=== PATIENT | male | born 1960 | race African-American/Black ===

== ENCOUNTER → 2016-09-17 | Outpatient (CLI) | payer OTHER ==
[2016-02-17 09:21] VITALS: BP 128/82
[~2016-09-17] MED LIST: ASPI325T4 PO; ATEN25TA PO; CLON0.25 PO; MULT-208 PO; OMEG1CAP28 PO; VENTOLIN HFA18 GM IH; asthmanex
--- NOTE | 2016-09-17 11:10 | RAD ---
PROCEDURE MR of the left knee HISTORY Medial left knee pain for 2 weeks. No known injury. COMPARISON None TECHNIQUE Standard multiplanar sequences are obtained. FINDINGS Mild signal within the posterior horn of the medial meniscus. There is slight ill definition of the capsular margin of the posterior horn and body. However, no evidence of surface violation or definitive meniscocapsular separation. No evidence of a lateral meniscal tear. Anterior and posterior cruciate ligaments are intact. Medial collateral ligament is intact. Iliotibial band unremarkable. Fibular collateral ligament, biceps femoris tendon and popliteus tendon are intact. Extensor mechanism is intact. Trace joint fluid identified. No evidence of an osteochondral loose body. Severe chondromalacia of the patellofemoral joint, mostly at its lateral aspect. Mild to moderate medial and lateral joint compartment chondromalacia. Small bone lesion within the proximal tibia, measures 11 millimeters diameter, and a marginates the growth plate scar. Appearance is most compatible with enchondroma or other benign process. No aggressive bone destruction is seen. Trace Rayo cyst. Small soft tissue nodule posterior to the distal femur, compatible with a small nonspecific lymph node measuring 12 millimeters. IMPRESSION 1. 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 2. Small nonspecific popliteal lymph node measures 12 millimeters diameter. 3. Mild signal within the medial meniscus but no definitive medial meniscal tear. Electronically signed by: Eric Rincon MD (Sep 17, 2016 11:09:33)
== END | disposition home or self-care (01) ==
LOC: MRI 08:06
PROVIDERS: ATTEND Orthopaedic Surgery Sports Medicine
DX: M25.562 Pain in left knee (principal); M17.12 Unilateral primary osteoarthritis, left knee
CPT/HCPCS: 73721

== ENCOUNTER 2016-10-04 12:33 | Emergency (ER) | payer OTHER ==
[~2016-10-04] VITALS: Ht 193 cm; Wt 112.9 kg
[2016-10-04 13:13] LABS: BASO # 0.1 x10^3/uL (0.0-0.2); BASO % 1 % (0-3); EOS % 2 % (0-3); HEMATOCRIT 41.4 % (39.0-53.0); LYMPH # 2.2 x10^3/uL (1.0-4.8); LYMPH % 28 % (24-48); MEAN CORPUSCULAR HEMOGLOBIN 33 pg (25-35); MEAN CORPUSCULAR HGB CONC 34 g/dL (31-37); MEAN CORPUSCULAR VOLUME 96 fL (79-100); MONO % 6 % (0-9); NEUT % 63 % (31-73); PLATELET COUNT 315 x10^3/uL (140-400); RED CELL DISTRIBUTION WIDTH 13.5 % (11.5-14.5); WHITE BLOOD COUNT 7.8 x10^3/uL (4.0-11.0)
[2016-10-04 13:26] LABS: CALCIUM 9.2 mg/dL (8.5-10.1); CREATININE 1.3 mg/dL (0.7-1.3); GFR 68.6; POTASSIUM 4.1 mmol/L (3.5-5.1)
--- NOTE | 2016-10-04 13:34 | PHYS DOC ---
Past Medical History Past Medical History: A-Fib, Asthma Past Surgical History: Other Additional Past Surgical Histo: URETHRAL RESECTION, ABLATION Alcohol Use: Occasionally Drug Use: None Adult General Chief Complaint Chief Complaint: Palpitations HPI HPI Patient is a 56 year old male who presents with intermittent palpitations this afternoon that feel exactly like prior episodes of atrial fibrillation. He states he took flecainide prior to coming here. He otherwise denies dyspnea, cough, chest pain, lightheadedness, diaphoresis, hemoptysis, leg pain or swelling. He states he is compliant with his other medications. He takes a daily aspirin. Review of Systems Review of Systems Constitutional: Denies fever or chills [] Eyes: Denies change in visual acuity, redness, or eye pain [] HENT: Denies nasal congestion or sore throat [] Respiratory: Denies cough or shortness of breath [] Cardiovascular: No additional information not addressed in HPI [] GI: Denies abdominal pain, nausea, vomiting, bloody stools or diarrhea [] : Denies dysuria or hematuria [] Musculoskeletal: Denies back pain or joint pain [] Integument: Denies rash or skin lesions [] Neurologic: Denies headache, focal weakness or sensory changes [] Endocrine: Denies polyuria or polydipsia [] Allergies Allergies Allergies Coded Allergies Type Severity Reaction Last Updated Verified Sulfa (Sulfonamide Antibiotics) Allergy Intermediate Hives 02/01/15 Yes Physical Exam Physical Exam Constitutional: Well developed, well nourished, no acute distress, non-toxic appearance. [] HENT: Normocephalic, atraumatic, bilateral external ears normal, oropharynx moist, nose normal. [] Eyes: PERRLA, EOMI. [] Neck: Normal range of motion, supple. [] Cardiovascular: Irregular [] Lungs & Thorax: Bilateral breath sounds clear to auscultation [] Abdomen: Bowel sounds normal, soft, no tenderness. [] Skin: Warm, dry, no erythema, no rash. [] Back: Normal range of motion. [] Extremities: No tenderness, ROM intact, no edema. [] Neurologic: Alert and oriented X 3, normal motor function, normal sensory function, no focal deficits noted. [] Psychologic: Affect normal, judgement normal, mood normal. [] Current Patient Data Vital Signs Vital Signs Date Time Temp Pulse Resp B/P Pulse Ox O2 Delivery O2 Flow Rate FiO2 10/04/16 13:53 98 14 123/86 100 Room Air 10/04/16 12:35 98.1 98.1 Lab Values Laboratory Tests Test 10/04/16 12:49 White Blood Count 7.8x10^3/uL (4.0-11.0) Red Blood Count 4.30x10^6/uL (4.30-5.70) Hemoglobin 14.0g/dL (13.0-17.5) Hematocrit 41.4% (39.0-53.0) Mean Corpuscular Volume 96fL (79-100) Mean Corpuscular Hemoglobin 33pg (25-35) Mean Corpuscular Hemoglobin Concent 34g/dL (31-37) Red Cell Distribution Width 13.5% (11.5-14.5) Platelet Count 315x10^3/uL (140-400) Neutrophils (%) (Auto) 63% (31-73) Lymphocytes (%) (Auto) 28% (24-48) Monocytes (%) (Auto) 6% (0-9) Eosinophils (%) (Auto) 2% (0-3) Basophils (%) (Auto) 1% (0-3) Neutrophils # (Auto) 4.9x10^3uL (1.8-7.7) Lymphocytes # (Auto) 2.2x10^3/uL (1.0-4.8) Monocytes # (Auto) 0.5x10^3/uL (0.0-1.1) Eosinophils # (Auto) 0.2x10^3/uL (0.0-0.7) Basophils # (Auto) 0.1x10^3/uL (0.0-0.2) Sodium Level 139mmol/L (136-145) Potassium Level 4.1mmol/L (3.5-5.1) Chloride Level 102mmol/L (98-107) Carbon Dioxide Level 31mmol/L (21-32) Anion Gap 6 (6-14) Blood Urea Nitrogen 15mg/dL (8-26) Creatinine 1.3mg/dL (0.7-1.3) Estimated GFR (Cockcroft-Gault) 68.6 Glucose Level 94mg/dL (70-99) Calcium Level 9.2mg/dL (8.5-10.1) Laboratory Tests 10/04/16 12:49 Laboratory Tests 10/04/16 12:49 EKG EKG EKG as interpreted by me as atrial fibrillation, rate 90, no ST-T changes Course & Med Decision Making Course & Med Decision Making Pertinent Labs and Imaging studies reviewed. (See chart for details) Workup is unremarkable here including maintaining normal rate between the 70s and 100. He has known atrial fibrillation. Discussed case with Luci Gunter APRN cardiology, who recommends follow-up closely in clinic as he currently has maintained normal rate in the emergency department. Return precautions given. He understands and agrees with plan. Dragon Disclaimer Dragon Disclaimer This electronic medical record was generated, in whole or in part, using a voice recognition dictation system. Departure Departure Impression: Primary Impression: Paroxysmal a-fib Disposition: 01 HOME, SELF-CARE Condition: STABLE Referrals: MARIAM RIDLEY MD Patient Instructions: Atrial Fibrillation, [id number] Additional Instructions: Follow-up with cardiology clinic. Return for any concerns. Diana BOSWELL MD Oct 04, 2016 13:34
[2016-10-04 13:53] VITALS: BP 123/86
--- NOTE | 2016-10-04 15:49 | EKG ---
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
== END 2016-10-04 13:54 | disposition home or self-care (01) ==
LOC: ER 12:33
DX: I48.0 Paroxysmal atrial fibrillation (principal); I48.91 Unspecified atrial fibrillation; J45.909 Unspecified asthma, uncomplicated; Z88.2 Allergy status to sulfonamides
CPT/HCPCS: 36415; 80048; 85027; 93005; 99285-25

== ENCOUNTER → 2017-07-07 | Outpatient (CLI) | payer OTHER ==
[~2017-07-07] MED LIST changes: -ASPI325T4 PO; +ASPI325T8 PO
[2017-07-07 09:04] LABS: BASO % 1 % (0-3); EOS % 2 % (0-3); HEMATOCRIT 41.6 % (39.0-53.0); HEMOGLOBIN 13.9 g/dL (13.0-17.5); LYMPH # 1.5 x10^3/uL (1.0-4.8); LYMPH % 31 % (24-48); MEAN CORPUSCULAR HEMOGLOBIN 33 pg (25-35); MEAN CORPUSCULAR HGB CONC 33 g/dL (31-37); MEAN CORPUSCULAR VOLUME 98 fL (79-100); MONO % 8 % (0-9); NEUT % 58 % (31-73); PLATELET COUNT 199 x10^3/uL (140-400); RED BLOOD COUNT 4.25 x10^6/uL (4.30-5.70); RED CELL DISTRIBUTION WIDTH 13.1 % (11.5-14.5); WHITE BLOOD COUNT 4.7 x10^3/uL (4.0-11.0)
[2017-07-07 09:06] LABS: BILIRUBIN,URINE NEGATIVE (NEG); GLUCOSE,URINE NEGATIVE (NEG); NITRITE,URINE NEGATIVE (NEG); PROTEIN,URINE NEGATIVE (NEG-TRACE); UROBILINOGEN,URINE 0.2 mg/dL (0.2 mg/dL)
[2017-07-07 09:12] LABS: SQUAMOUS EPITHELIAL CELL,UR OCC /LPF
[2017-07-07 09:13] LABS: BACTERIA,URINE MOD /HPF (0-FEW); RBC,URINE OCC /HPF (0-2); WBC,URINE 20-40 /HPF (0-4)
[2017-07-07 09:32] LABS: ALBUMIN 4.2 g/dL (3.4-5.0); ALBUMIN/GLOBULIN RATIO 1.1 (1.0-1.7); CALCIUM 9.1 mg/dL (8.5-10.1); CREATININE 1.3 mg/dL (0.7-1.3); GFR 68.4; POTASSIUM 4.3 mmol/L (3.5-5.1); TOTAL PROTEIN 8.1 g/dL (6.4-8.2)
[2017-07-07 09:33] LABS: CHOLESTEROL/HDL RATIO 3.8
[2017-07-07 09:36] LABS: FREE T4 1.1 ng/dL (0.76-1.46)
[2017-07-10 10:27] LABS: % FREE TESTOSTERONE 2.55 % (1.50-4.20); TESTOSTERONE FREE 17.49 ng/dL (5.00-21.00); TESTOSTERONE TOTAL 686 ng/dL (264-916)
== END | disposition home or self-care (01) ==
LOC: LAB 08:38
PROVIDERS: ATTEND Family Medicine
DX: Z12.5 Encounter for screening for malignant neoplasm of prostate (principal); Z00.01 Encounter for general adult medical examination with abnormal findings; Z79.899 Other long term (current) drug therapy
CPT/HCPCS: 80053; 80061; 81001; 83036; 84439; 84443; 85025; G0103

== ENCOUNTER → 2017-07-23 | Outpatient (CLI) | payer SELFPAY ==
--- NOTE | 2017-07-23 10:40 | KCIC ---
Examination: CT calcium score HISTORY: History of elevated cholesterol, screening COMPARISON: None available TECHNIQUE: Axial CT images of the heart were performed using cardiac CT calcium scoring protocol with ECG gating . Exposure: One or more of the following individualized dose reduction techniques were utilized for this examination: 1. Automated exposure control 2. Adjustment of the mA and/or kV according to patient size 3. Use of iterative reconstruction technique. FINDINGS: The ascending aorta measures 4 cm in transverse dimension. No evidence of pericardial effusion.The total calcium score is 0. The lungs are clear. IMPRESSION: 1. Total calcium score is 0. No identifiable plaque. Risk of coronary artery disease is very low. Medical follow-up recommended. Electronically signed by: Catarino White MD (07/23/2017 10:37 AM) [id number]
== END | disposition home or self-care (01) ==
LOC: KCIC CT 08:21
PROVIDERS: ATTEND Family Medicine
DX: E78.00 Pure hypercholesterolemia, unspecified (principal); I10 Essential (primary) hypertension; I25.10 Atherosclerotic heart disease of native coronary artery without angina pectoris
CPT/HCPCS: 75571

== ENCOUNTER → 2017-07-30 | Outpatient (CLI) | payer OTHER ==
--- NOTE | 2017-07-30 15:52 | CARD ---
APPROVED REPORT EXAM: Two-dimensional and M-mode echocardiogram with Doppler and color Doppler. Other Information Quality : Average Rhythm : NSR INDICATION Hypertension/HCVD 2D DIMENSIONS RVDd3.5 (2.9-3.5cm)Left Atrium(2D)4.4 (1.6-4.0cm) IVSd1.2 (0.7-1.1cm)Aortic Root(2D)4.0 (2.0-3.7cm) LVDd5.4 (3.9-5.9cm)LVOT Diameter2.4 (1.8-2.4cm) PWd1.2 (0.7-1.1cm)LVDs3.4 (2.5-4.0cm) FS (%) 35.7 %SV89.8 ml LVEF(%)64.7 (>50%) Aortic Valve AoV Peak [place].116.4cm/sAoV VTI21.7cm AO Peak GR.5.4mmHgLVOT Peak [place].115.1cm/s LVOT VTI 20.86cmAO Mean GR.3mmHg STAS (VMAX)4.17rt8HGQ (VTI)4.26cm2 Mitral Valve MV E Clntzooq06.4cm/sMV DECEL DIWE200gv MV A Wohmtxuw36.9cm/sMV PQD20hg E/A Ratio1.5MV A Ehxlyyeo023fe MVA (PHT)3.49cm2 TDI E/Lateral E'5.4E/Medial E'9.0 Pulmonary Valve PV Peak Jlklfnpl69.0cm/sPV Peak Grad.3mmHg RVOT VTI17.2cm Tricuspid Valve TR P. Slwdospu250lv/sRAP QNFCDFMT3aeGz TR Peak Gr.20iyLtSSFB20ywHk Pulmonary Vein S1 Iixclbmk98.5cm/sD2 Vsoaxytn21.8cm/s LEFT VENTRICLE The left ventricle is normal size. There is borderline concentric left ventricular hypertrophy. Left ventricle systolic function is normal. The Ejection Fraction is 60-65%. There is normal LV segmental wall motion. The left ventricular diastolic function and filling is normal for age. There is no ventr icular septal defect visualized. RIGHT VENTRICLE The right ventricle is normal size. The right ventricular systolic function is normal. ATRIA The left atrium is mildly dilated. The right atrium size is normal. The interatrial septum is intact with no evidence for an atrial septal defect or patent foramen ovale as noted on 2-D or Doppler imagi ng. AORTIC VALVE The aortic valve is normal in structure and function. The aortic valve is trileaflet. Doppler and Col or Flow revealed no significant aortic regurgitation. There is no significant aortic valvular stenosi s. MITRAL VALVE The mitral valve is normal in structure and function. There is no mitral valve stenosis. Doppler and Color Flow revealed no mitral valve regurgitation noted. TRICUSPID VALVE The tricuspid valve is not well visualized. Doppler and Color Flow revealed trace tricuspid regurgita tion. The PA pressure was estimated at 24 mmHg. There is no tricuspid valve stenosis. PULMONIC VALVE The pulmonic valve is not well visualized. Doppler and Color Flow revealed trace pulmonic valvular re gurgitation. There is no pulmonic valvular stenosis. GREAT VESSELS The aortic root is enlarged measuring 4.0 cm. The ascending aorta is dilated measuring 3.9 cm. Normal pulmonary venous flow (Doppler). The IVC is normal in size and collapses >50% with inspiration. PERICARDIAL EFFUSION There is no evidence of significant pericardial effusion. Critical Notification Critical Value: No <Conclusion> Left ventricle systolic function is normal. The Ejection Fraction is 60-65%. There is normal LV segmental wall motion. Doppler and Color Flow revealed trace tricuspid regurgitation. The PA pressure was estimated at 24 mmHg. There is no evidence of significant pericardial effusion.
== END | disposition home or self-care (01) ==
LOC: ECHO 15:07
PROVIDERS: ATTEND Internal Medicine Cardiovascular Disease
DX: I12.9 Hypertensive chronic kidney disease with stage 1 through stage 4 chronic kidney disease, or unspecified chronic kidney disease (principal); N18.9 Chronic kidney disease, unspecified
CPT/HCPCS: 93306

== ENCOUNTER → 2018-02-02 | Outpatient (CLI) | payer OTHER | END | disposition home or self-care (01) | LOC: ECHO 08:15 | DX: I34.0 Nonrheumatic mitral (valve) insufficiency (principal); I71.2 Thoracic aortic aneurysm, without rupture; I13.10 Hypertensive heart and chronic kidney disease without heart failure, with stage 1 through stage 4 chronic kidney disease, or unspecified chronic kidney disease; N18.9 Chronic kidney disease, unspecified; E78.00 Pure hypercholesterolemia, unspecified | CPT/HCPCS: 93306 ==

== ENCOUNTER → 2018-02-24 | Outpatient (CLI) | payer OTHER ==
[2018-02-24] MEDS: ZOLPIDEM 5 MG TABLET. PO (21:30)
== END | disposition home or self-care (01) ==
LOC: SLPLAB 19:06
DX: G47.33 Obstructive sleep apnea (adult) (pediatric) (principal)
CPT/HCPCS: 95810

== ENCOUNTER → 2019-01-14 | Outpatient (CLI) | payer OTHER ==
[2019-01-14 09:57] LABS: BILIRUBIN,URINE NEGATIVE (NEG); CLARITY,URINE CLOUDY; COLOR,URINE YELLOW; NITRITE,URINE NEGATIVE (NEG); PROTEIN,URINE NEGATIVE (NEG-TRACE); UROBILINOGEN,URINE 0.2 mg/dL (0.2 mg/dL)
[2019-01-14 10:08] LABS: BASO % 1 % (0-3); EOS # 0.1 x10^3/uL (0.0-0.7); EOS % 2 % (0-3); HEMATOCRIT 39.5 % (39.0-53.0); HEMOGLOBIN 13.5 g/dL (13.0-17.5); LYMPH # 1.9 x10^3/uL (1.0-4.8); LYMPH % 32 % (24-48); MEAN CORPUSCULAR HEMOGLOBIN 34 pg (25-35); MEAN CORPUSCULAR HGB CONC 34 g/dL (31-37); MEAN CORPUSCULAR VOLUME 100 fL (79-100); MONO # 0.4 x10^3/uL (0.0-1.1); MONO % 8 % (0-9); NEUT # 3.3 x10^3uL (1.8-7.7); NEUT % 57 % (31-73); PLATELET COUNT 191 x10^3/uL (140-400); RED BLOOD COUNT 3.96 x10^6/uL (4.30-5.70); RED CELL DISTRIBUTION WIDTH 13.2 % (11.5-14.5); WHITE BLOOD COUNT 5.8 x10^3/uL (4.0-11.0)
[2019-01-14 10:13] LABS: ALBUMIN 3.8 g/dL (3.4-5.0); ALBUMIN/GLOBULIN RATIO 0.9 (1.0-1.7); CHOLESTEROL/HDL RATIO 3.3; CREATININE 1.3 mg/dL (0.7-1.3); GFR 68.1; POTASSIUM 4.2 mmol/L (3.5-5.1); TOTAL BILIRUBIN 1.1 mg/dL (0.2-1.0)
[2019-01-14 10:22] LABS: FREE T4 0.9 ng/dL (0.76-1.46); THYROID STIM HORMONE (TSH) 2.631 uIU/mL (0.358-3.74)
[2019-01-14 10:55] LABS: BACTERIA,URINE 0 /HPF (0-FEW); RBC,URINE 0 /HPF (0-2); SQUAMOUS EPITHELIAL CELL,UR FEW /LPF; WBC,URINE TNTC /HPF (0-4)
[2019-01-14 23:08] LABS: HEMOGLOBIN A1C 4.8 % (4.8-5.6)
== END | disposition home or self-care (01) ==
LOC: LAB 09:09
PROVIDERS: ATTEND Family Medicine
DX: Z00.00 Encounter for general adult medical examination without abnormal findings (principal); Z12.5 Encounter for screening for malignant neoplasm of prostate; Z79.899 Other long term (current) drug therapy
CPT/HCPCS: 36415; 80053; 80061; 81001; 83036; 84439; 84443; 85025; 87086; G0103

== ENCOUNTER → 2019-02-04 | Outpatient (CLI) | payer OTHER ==
[2019-02-04 13:53] LABS: BILIRUBIN,URINE NEGATIVE (NEG); CLARITY,URINE CLEAR; COLOR,URINE YELLOW; NITRITE,URINE NEGATIVE (NEG); PH,URINE 5.5; PROTEIN,URINE NEGATIVE (NEG-TRACE); UROBILINOGEN,URINE 0.2 mg/dL (0.2 mg/dL)
[2019-02-04 14:01] LABS: BACTERIA,URINE 0 /HPF (0-FEW); RBC,URINE 0 /HPF (0-2); SQUAMOUS EPITHELIAL CELL,UR FEW /LPF; WBC,URINE OCC /HPF (0-4)
== END | disposition home or self-care (01) ==
LOC: LAB 12:52
PROVIDERS: ATTEND Family Medicine
DX: Z12.5 Encounter for screening for malignant neoplasm of prostate (principal); R30.0 Dysuria; R97.20 Elevated prostate specific antigen [PSA]
CPT/HCPCS: 36415; 81001; 87086; G0103

== ENCOUNTER → 2019-02-10 | Outpatient (CLI) | payer OTHER ==
[2019-02-11 14:14] LABS: FREE PSA/PSA RATIO 9.4 % (.); PSA FREE 0.15 ng/mL; PSA TOTAL 1.6 ng/mL (0.0-4.0)
== END | disposition home or self-care (01) ==
LOC: LAB 07:08
PROVIDERS: ATTEND Family Medicine
DX: R97.20 Elevated prostate specific antigen [PSA] (principal)
CPT/HCPCS: 36415; 84153; 84154

== ENCOUNTER → 2019-03-08 | Outpatient (CLI) | payer OTHER ==
--- NOTE | 2019-03-08 09:41 | CARD ---
MR#: [id number] Date of Study: 03/08/2019 Ordering Physician: MARIAM RIDLEY, Referring Physician: MARIAM RIDLEY, Tech: Kajal Guzman MARCO ANTONIO APPROVED REPORT EXAM: Two-dimensional and M-mode echocardiogram with Doppler and color Doppler. Other Information Quality : GoodHR: 65bpm Rhythm : NSR INDICATION Hypertension/HCVD 2D DIMENSIONS RVDd3.2 (2.9-3.5cm)Left Atrium(2D)4.8 (1.6-4.0cm) IVSd1.4 (0.7-1.1cm)Aortic Root(2D)4.1 (2.0-3.7cm) LVDd5.2 (3.9-5.9cm)LVOT Diameter2.7 (1.8-2.4cm) PWd1.1 (0.7-1.1cm)LVDs3.6 (2.5-4.0cm) FS (%) 30.2 %SV72.9 ml LVEF(%)57.2 (>50%) M-Mode DIMENSIONS Left Atrium(MM)4.45 (2.5-4.0cm)Aortic Root4.10 (2.2-3.7cm) Aortic Valve AoV Peak [place].127.9cm/sAoV VTI24.2cm AO Peak GR.6.5mmHgLVOT Peak [place].104.9cm/s AO Mean GR.3mmHgAVA (VMAX)4.61cm2 STAS (VTI)4.20cm2 Mitral Valve MV E Bwsrpujq58.5cm/sMV DECEL IFHQ163io MV A Pwhgmyvz89.5cm/sE/A Ratio2.0 Pulmonary Valve PV Peak Xsrutfvb50.0cm/s Tricuspid Valve TR P. Xdzigrkb367el/sRAP NMFOEDZX6wxZj TR Peak Gr.18xuAtQZFT30evSw Pulmonary Vein S1 Sujlhnyl47.3cm/sD2 Iyyhqwbg06.8cm/s LEFT VENTRICLE The left ventricle is normal size. There is mild concentric left ventricular hypertrophy. The left ve ntricular systolic function is normal and the ejection fraction is within normal range. The Ejection Fraction is 55-60%. There is normal LV segmental wall motion. The left ventricular diastolic function and filling is normal for age. RIGHT VENTRICLE The right ventricle is normal size. There is normal right ventricular wall thickness. The right ventr icular systolic function is normal. ATRIA The left atrium size is normal. The right atrium size is normal. The interatrial septum is intact wit h no evidence for an atrial septal defect or patent foramen ovale as noted on 2-D or Doppler imaging. AORTIC VALVE The aortic valve is normal in structure and function. The aortic valve is trileaflet. Doppler and Col or Flow revealed trace aortic regurgitation. There is no significant aortic valvular stenosis. There is no aortic valvular vegetation. MITRAL VALVE The mitral valve is normal in structure and function. There is no evidence of mitral valve prolapse. There is no mitral valve stenosis. Doppler and Color-flow revealed trace mitral regurgitation. TRICUSPID VALVE The tricuspid valve is normal in structure and function. Doppler and Color Flow revealed trace tricus pid regurgitation. The PA pressure was estimated at 33 mmHg. There is no tricuspid valve prolapse or vegetation. There is no tricuspid valve stenosis. PULMONIC VALVE The pulmonary valve is normal in structure and function. Doppler and Color Flow revealed trace pulmon ic valvular regurgitation. There is no pulmonic valvular stenosis. GREAT VESSELS The aortic root is mildly enlarged at 4.1cm. The ascending aorta is Mildly dilated at 3.9cm. The IVC is normal in size and collapses >50% with inspiration. PERICARDIAL EFFUSION There is no evidence of significant pericardial effusion. Critical Notification Critical Value: No <Conclusion> The left ventricular systolic function is normal and the ejection fraction is within normal range. Th e Ejection Fraction is 55-60%. There is normal LV segmental wall motion. Doppler and Color Flow revealed trace tricuspid regurgitation. The PA pressure was estimated at 33 mm Hg. Doppler and Color Flow revealed trace pulmonic valvular regurgitation. The ascending aorta is mildly dilated at 3.9cm. (No significant changes compared to prior) Signed by : Mariam Ridley, Electronically Approved : 03/08/2019 09:40:52
== END | disposition home or self-care (01) ==
LOC: ECHO 07:20
PROVIDERS: ATTEND Internal Medicine Cardiovascular Disease
DX: I11.9 Hypertensive heart disease without heart failure (principal)
CPT/HCPCS: 93306

== ENCOUNTER 2019-06-26 16:47 | Emergency (ER) | payer OTHER ==
[~2019-06-26] VITALS: Ht 193 cm; Wt 117.0 kg
[2019-06-26] MEDS ORDERED: ASPIRIN CHEWABLE 81 MG TABLET. PO ONE (17:00)
--- NOTE | 2019-06-26 17:00 | PHYS DOC ---
Past Medical History Past Medical History: A-Fib, Asthma Past Surgical History: Other Additional Past Surgical Histo: URETHRAL RESECTION, ABLATION Alcohol Use: Occasionally Drug Use: None The HEART Score for CP Pts HEART Score for Chest Pain: HEART Score for Chest Pain Response (Comments) Value History Slighlty/Non-Suspicious 0 ECG Nonspecific Repolarizatio 1 Age >45 - < 65 1 Risk Factors 1 or 2 Risk Factors 1 Troponin < Normal Limit 0 Total 3 Risk Factors: Risk Factors: DM, Current or recent (<one month) smoker, HTN, HLP, family history of CAD, obesity. Risk Scores: Score 0 - 3: 2.5% MACE over next 6 weeks - Discharge Home Score 4 - 6: 20.3% MACE over next 6 weeks - Admit for Clinical Observation Score 7 - 10: 72.7% MACE over next 6 weeks - Early Invasive Strategies Adult General Chief Complaint Chief Complaint: CHEST PAIN [facility] HPI 59-year-old male presents to the emergency department with complaints of left- sided chest pain, states he woke this morning about 9 AM. Patient's more achy on the left side nonreproducible. He states he took some Advil without relief. Patient has a history of atrial fibrillation with ablation states nothing makes his pain worse, nothing makes his pain better. He is currently on atenolol 25 mg twice a day, flecainide 50 mg twice a day. Patient denies any nausea, vomiting, diaphoresis. Review of Systems Review of Systems Constitutional: Denies fever or chills [] Respiratory: Denies cough or shortness of breath [] Cardiovascular: No additional information not addressed in HPI [] GI: Denies abdominal pain, nausea, vomiting, bloody stools or diarrhea [] Musculoskeletal: Denies back pain or joint pain [] Neurologic: Denies headache, focal weakness or sensory changes [] All other systems were reviewed and found to be within normal limits, except as documented in this note. Current Medications Current Medications Current Medications Medications (Trade) Dose Ordered Sig/Svetlana Start Time Stop Time Status Last Admin Dose Admin Aspirin (Children'S Aspirin) 324 mg 1X ONCE 06/26/19 17:00 06/26/19 17:07 DC 06/26/19 17:18 324 MG Ketorolac Tromethamine (Toradol 30mg Vial) 30 mg 1X ONCE 06/26/19 17:45 06/26/19 17:50 DC 06/26/19 17:53 30 MG Nitroglycerin (Nitrostat) 0.4 mg PRN Q5MIN PRN 06/26/19 17:00 06/27/19 16:59 06/26/19 17:26 0.4 MG Allergies Allergies Allergies Coded Allergies Type Severity Reaction Last Updated Verified Sulfa (Sulfonamide Antibiotics) Allergy Intermediate Hives 02/01/15 Yes Physical Exam Physical Exam Constitutional: Well developed, well nourished, no acute distress, non-toxic appearance. [] HENT: Normocephalic, atraumatic, bilateral external ears normal, oropharynx moist, no oral exudates, nose normal. [] Eyes: PERRLA, EOMI, conjunctiva normal, no discharge. [] Cardiovascular:Heart rate regular rhythm, no murmur [] Lungs & Thorax: Bilateral breath sounds clear to auscultation [] Abdomen: Bowel sounds normal, soft, no tenderness, no masses, no pulsatile masses. [] Skin: Warm, dry, no erythema, no rash. [] Back: No tenderness, no CVA tenderness. [] Extremities: No tenderness, no edema. [] Neurologic: Alert and oriented X 3, no focal deficits noted. [] Psychologic: Affect normal, judgement normal, mood normal. [] Current Patient Data Vital Signs Vital Signs Date Time Temp Pulse Resp B/P (MAP) Pulse Ox O2 Delivery O2 Flow Rate FiO2 06/26/19 17:26 62 161/93 06/26/19 16:56 98.1 16 97 Room Air 98.1 Lab Values Laboratory Tests Test 06/26/19 17:14 White Blood Count 7.7 x10^3/uL (4.0-11.0) Red Blood Count 4.11 x10^6/uL (4.30-5.70) L Hemoglobin 14.1 g/dL (13.0-17.5) Hematocrit 40.7 % (39.0-53.0) Mean Corpuscular Volume 99 fL (79-100) Mean Corpuscular Hemoglobin 34 pg (25-35) Mean Corpuscular Hemoglobin Concent 35 g/dL (31-37) Red Cell Distribution Width 12.6 % (11.5-14.5) Platelet Count 221 x10^3/uL (140-400) Neutrophils (%) (Auto) 64 % (31-73) Lymphocytes (%) (Auto) 28 % (24-48) Monocytes (%) (Auto) 6 % (0-9) Eosinophils (%) (Auto) 1 % (0-3) Basophils (%) (Auto) 1 % (0-3) Neutrophils # (Auto) 5.0 x10^3/uL (1.8-7.7) Lymphocytes # (Auto) 2.2 x10^3/uL (1.0-4.8) Monocytes # (Auto) 0.4 x10^3/uL (0.0-1.1) Eosinophils # (Auto) 0.1 x10^3/uL (0.0-0.7) Basophils # (Auto) 0.1 x10^3/uL (0.0-0.2) Sodium Level 138 mmol/L (136-145) Potassium Level 4.2 mmol/L (3.5-5.1) Chloride Level 101 mmol/L (98-107) Carbon Dioxide Level 27 mmol/L (21-32) Anion Gap 10 (6-14) Blood Urea Nitrogen 10 mg/dL (8-26) Creatinine 1.2 mg/dL (0.7-1.3) Estimated GFR (Cockcroft-Gault) 74.5 BUN/Creatinine Ratio 8 (6-20) Glucose Level 98 mg/dL (70-99) Calcium Level 9.4 mg/dL (8.5-10.1) Total Bilirubin 1.2 mg/dL (0.2-1.0) H Aspartate Amino Transferase (AST) 22 U/L (15-37) Alanine Aminotransferase (ALT) 14 U/L (16-63) L Alkaline Phosphatase 78 U/L (46-116) Troponin I Quantitative < 0.017 ng/mL (0.000-0.055) Total Protein 8.8 g/dL (6.4-8.2) H Albumin 4.2 g/dL (3.4-5.0) Albumin/Globulin Ratio 0.9 (1.0-1.7) L Laboratory Tests 06/26/19 17:14 Laboratory Tests 06/26/19 17:14 EKG EKG EKG reviewed, heart rate 60, T-wave inversion V1 otherwise unremarkable, no evidence of ST elevation appreciated[] Interpretation Time: Interpretation time 0678 Radiology/Procedures Radiology/Procedures Chest xray - wet read without acute process[] Course & Med Decision Making Course & Med Decision Making Pertinent Labs and Imaging studies reviewed. (See chart for details) []59-year-old male presents to the emergency department with complaints of left-sided chest pain, states he woke this morning about 9 AM. Patient's more achy on the left side nonreproducible. He states he took some Advil without relief. Patient has a history of atrial fibrillation with ablation states nothing makes his pain worse, nothing makes his pain better. He is currently on atenolol 25 mg twice a day, flecainide 50 mg twice a day. Patient denies any nausea, vomiting, diaphoresis. Patient received NTG upon arrival x 2 without left chest pain improvement - Toradol 30mg IV x 1 EKG reviewed without acute changes appreciated CXR without acute changes appreciated Troponin x1 negative, will await 2/2 troponin if negative and pain improved will plan discharge home Discussed dc plans with patient. He is in agreement. Discussed return precautions Discussed case with Dr. Rayo, he will assume care of patient [id number] [place] Disclaimer Dragon Disclaimer This electronic medical record was generated, in whole or in part, using a voice recognition dictation system. Departure Departure Impression: Primary Impression: Chest pain Disposition: 01 HOME, SELF-CARE Condition: STABLE Referrals: CARLA DOTSON MD (PCP) Patient Instructions: Chest Wall Pain, Ynzm-ov-Zhiy Additional Instructions: Recommend follow up with PCP 3 - 5 days Return to the ER with worsening symptoms, intractable pain, fever, altered mental status Tylenol/Motrin as needed for pain Cardiac enzymes negative EKG without acute changes Problem Qualifiers Primary Impression: Chest pain Chest pain type: other chest pain Qualified Codes: R07.89 - Other chest pain ARAMIS CALLOWAY MD Jun 26, 2019 17:00
[2019-06-26] MEDS: NITROGLYCERIN SUBLINGUAL 0.4 MG BOTTLE OF 25. SL PRN ×2 (17:20→17:26)
[2019-06-26 17:21] LABS: BASO # 0.1 x10^3/uL (0.0-0.2); BASO % 1 % (0-3); EOS # 0.1 x10^3/uL (0.0-0.7); EOS % 1 % (0-3); HEMATOCRIT 40.7 % (39.0-53.0); HEMOGLOBIN 14.1 g/dL (13.0-17.5); LYMPH # 2.2 x10^3/uL (1.0-4.8); LYMPH % 28 % (24-48); MEAN CORPUSCULAR HEMOGLOBIN 34 pg (25-35); MEAN CORPUSCULAR HGB CONC 35 g/dL (31-37); MEAN CORPUSCULAR VOLUME 99 fL (79-100); MONO # 0.4 x10^3/uL (0.0-1.1); MONO % 6 % (0-9); NEUT % 64 % (31-73); PLATELET COUNT 221 x10^3/uL (140-400); RED BLOOD COUNT 4.11 x10^6/uL (4.30-5.70); RED CELL DISTRIBUTION WIDTH 12.6 % (11.5-14.5); WHITE BLOOD COUNT 7.7 x10^3/uL (4.0-11.0)
[2019-06-26 17:32] LABS: CALCIUM 9.4 mg/dL (8.5-10.1); CREATININE 1.2 mg/dL (0.7-1.3); GFR 74.5; POTASSIUM 4.2 mmol/L (3.5-5.1)
[2019-06-26 17:36] LABS: ALBUMIN 4.2 g/dL (3.4-5.0); ALBUMIN/GLOBULIN RATIO 0.9 (1.0-1.7); TOTAL BILIRUBIN 1.2 mg/dL (0.2-1.0); TOTAL PROTEIN 8.8 g/dL (6.4-8.2)
[2019-06-26] MEDS ORDERED: KETOROLAC 30 MG/ML VIAL. IVP ONE (17:45)
--- NOTE | 2019-06-26 18:09 | RAD ---
Single view portable chest HISTORY: Chest pain. COMPARISON: None FINDINGS: Heart size is not enlarged. No evidence of pneumothorax, pleural effusion or airspace disease. Bones appear grossly intact. Aorta appears mildly tortuous or ectatic. IMPRESSION: No evidence of consolidating infiltrate. Electronically signed by: Eric Rincon MD (06/26/2019 6:06 PM) [facility]
[2019-06-26] MEDS ORDERED: AMLO10TA8 PO (21:49)
[2019-06-26 22:13] VITALS: BP 163/97
[2019-06-26] MEDS ORDERED: amLODIPine BESYLATE 5 MG TABLET PO ONE (22:15)
--- NOTE | 2019-06-27 11:59 | EKG ---
[facility] [address] [place] [address] Test Date: 2019-06-26 Test Time: 16:54:44 Pat Name: SERGEI NEWBY Department: Room: Gender: M [employer] Material: [place] : 1960 Requested By: ARAMIS CALLOWAY Order Number: [id number] Reading MD: Measurements Intervals [place] Rate: 60 P: [place]: QRS: -16 QRSD: 100 T: 11 QT: 406 QTc: 406 Interpretive Statements ATRIAL FLUTTER VENTRICULAR PREMATURE COMPLEX(ES) LEFTWARD AXIS QRS(T) CONTOUR ABNORMALITY CONSIDER ANTEROSEPTAL MYOCARDIAL DAMAGE T ABNORMALITY IN HIGH LATERAL LEADS ABNORMAL ECG RI6.01 No previous ECG available for comparison
== END 2019-06-26 22:17 | disposition home or self-care (01) ==
LOC: ER 16:47
DX: R07.89 Other chest pain (principal); I48.91 Unspecified atrial fibrillation; J45.909 Unspecified asthma, uncomplicated; Z79.82 Long term (current) use of aspirin
CPT/HCPCS: 36415; 71045; 80053; 84484; 85025; 93005; 96374; 99285; J1885

== ENCOUNTER → 2019-07-08 | Outpatient (CLI) | payer OTHER ==
[2019-06-26 22:13] VITALS: BP 163/97
[~2019-07-08] MED LIST changes: +AMLO10TA8 PO
[2019-07-08 11:13] LABS: ALBUMIN 4.2 g/dL (3.4-5.0); CALCIUM 9.1 mg/dL (8.5-10.1); CREATININE 1.3 mg/dL (0.7-1.3); GFR 67.9; POTASSIUM 4.3 mmol/L (3.5-5.1); TOTAL PROTEIN 8.6 g/dL (6.4-8.2)
== END | disposition home or self-care (01) ==
LOC: LAB 10:20
PROVIDERS: ATTEND Family Medicine
DX: I48.0 Paroxysmal atrial fibrillation (principal); R03.0 Elevated blood-pressure reading, without diagnosis of hypertension
CPT/HCPCS: 36415; 80053

== ENCOUNTER → 2019-07-30 | Outpatient (CLI) | payer OTHER ==
[2019-07-30 13:14] LABS: ALBUMIN 4.1 g/dL (3.4-5.0); ALBUMIN/GLOBULIN RATIO 0.9 (1.0-1.7); CALCIUM 9.4 mg/dL (8.5-10.1); CREATININE 1.5 mg/dL (0.7-1.3); GFR 57.6; POTASSIUM 4.5 mmol/L (3.5-5.1); TOTAL BILIRUBIN 1.2 mg/dL (0.2-1.0); TOTAL PROTEIN 8.8 g/dL (6.4-8.2)
== END | disposition home or self-care (01) ==
LOC: LAB 11:45
PROVIDERS: ATTEND Family Medicine
DX: E88.09 Other disorders of plasma-protein metabolism, not elsewhere classified (principal)
CPT/HCPCS: 36415; 80053

== ENCOUNTER → 2019-08-25 | Outpatient (CLI) | payer OTHER ==
--- NOTE | 2019-08-25 12:49 | RAD ---
CT of the chest without contrast Indication: [Left-sided chest pain] Comparison study: [None] Technique: Multidetector CT imaging of the chest was performed without the administration of intravenous contrast. Findings: Heart size is normal. No significant pericardial effusion is seen. No pathologic mediastinal adenopathy is identified. No focal consolidation or infiltrate is seen. No pneumothorax or pleural effusion is seen. No acute appearing focal infiltrate is seen. There is a 4 mm noncalcified nodule in the right upper lobe (axial image 20). No acute osseous abnormality is identified. Limited visualization of the upper abdomen demonstrates no acute abnormality. Impression: 1. 4 mm noncalcified nodule, right upper lobe. CT surveillance recommended as described below 2. Otherwise no other acute cardiopulmonary process Pulmonary Nodule Followup: Fleischner Society recommendations (Radiology 2005; 237; 395-400): In a low risk patient: 4mm or less - No follow up required. >4-6mm- 12 month follow up, if unchanged, no further follow up. >6-8mm- 6-12 month follow up, then at 18-24 months if no change. >8mm- 3, 9, 24 month follow up or consideration of PET/CT. In a high risk patient: <4mm - 12 month follow up, if unchanged then no further follow up. >4-6mm- 6-12 month follow up, then at 18-24 months if no change. >6-8mm- 3-6 month follow up, then at 9-12 months and [address] no [address] DOSING PQRS STATEMENT: One or more of the following individualized dose reduction techniques were utilized for this examination: 1. Automated exposure control 2. Adjustment of the mA and/or kV according to patient size 3. Use of iterative reconstruction technique Electronically signed by: Amado Steward MD (08/25/2019 12:46 PM) [id number]
== END ==
LOC: CT 09:39
PROVIDERS: ATTEND Internal Medicine Pulmonary Disease
DX: R91.1 Solitary pulmonary nodule (principal); I10 Essential (primary) hypertension; I48.91 Unspecified atrial fibrillation
CPT/HCPCS: 71250

== ENCOUNTER → 2019-08-27 | Outpatient (CLI) | payer OTHER ==
[2019-08-27 11:25] LABS: ALBUMIN 4.4 g/dL (3.4-5.0); ALBUMIN/GLOBULIN RATIO 0.9 (1.0-1.7); CALCIUM 9.7 mg/dL (8.5-10.1); CREATININE 1.5 mg/dL (0.7-1.3); GFR 57.6; POTASSIUM 3.6 mmol/L (3.5-5.1); TOTAL BILIRUBIN 1.4 mg/dL (0.2-1.0); TOTAL PROTEIN 9.3 g/dL (6.4-8.2)
== END | disposition home or self-care (01) ==
LOC: LAB 08:08
PROVIDERS: ATTEND Internal Medicine Cardiovascular Disease
DX: I10 Essential (primary) hypertension (principal)
CPT/HCPCS: 36415; 80053

== ENCOUNTER → 2019-09-22 | Outpatient (CLI) | payer OTHER ==
[2019-09-22 13:39] LABS: BASO % 1 % (0-3); EOS # 0.1 x10^3/uL (0.0-0.7); EOS % 2 % (0-3); HEMATOCRIT 33.4 % (39.0-53.0); HEMOGLOBIN 11.2 g/dL (13.0-17.5); LYMPH # 0.8 x10^3/uL (1.0-4.8); LYMPH % 23 % (24-48); MEAN CORPUSCULAR HEMOGLOBIN 34 pg (25-35); MEAN CORPUSCULAR HGB CONC 34 g/dL (31-37); MEAN CORPUSCULAR VOLUME 100 fL (79-100); MONO # 0.4 x10^3/uL (0.0-1.1); MONO % 13 % (0-9); NEUT % 61 % (31-73); PLATELET COUNT 277 x10^3/uL (140-400); RED BLOOD COUNT 3.35 x10^6/uL (4.30-5.70); WHITE BLOOD COUNT 3.3 x10^3/uL (4.0-11.0)
[2019-09-22 14:03] LABS: ALBUMIN 3.3 g/dL (3.4-5.0); ALBUMIN/GLOBULIN RATIO 0.8 (1.0-1.7); CALCIUM 8.7 mg/dL (8.5-10.1); CREATININE 1.3 mg/dL (0.7-1.3); GFR 67.9; POTASSIUM 3.9 mmol/L (3.5-5.1); TOTAL BILIRUBIN 0.8 mg/dL (0.2-1.0); TOTAL PROTEIN 7.4 g/dL (6.4-8.2)
[2019-09-24 19:09] LABS: ANA INTERP Negative (.)
== END | disposition home or self-care (01) ==
LOC: LAB 13:18
PROVIDERS: ATTEND Nurse Practitioner Gerontology
DX: R50.9 Fever, unspecified (principal)
CPT/HCPCS: 36415; 80053; 85025; 85651; 86038; 86141

== ENCOUNTER → 2019-11-10 | Outpatient (CLI) | payer OTHER ==
[2019-11-10 12:45] LABS: BASO # 0.1 x10^3/uL (0.0-0.2); BASO % 1 % (0-3); EOS # 0.1 x10^3/uL (0.0-0.7); EOS % 2 % (0-3); HEMATOCRIT 39.3 % (39.0-53.0); HEMOGLOBIN 13.3 g/dL (13.0-17.5); LYMPH # 1.8 x10^3/uL (1.0-4.8); LYMPH % 33 % (24-48); MEAN CORPUSCULAR HEMOGLOBIN 34 pg (25-35); MEAN CORPUSCULAR HGB CONC 34 g/dL (31-37); MEAN CORPUSCULAR VOLUME 100 fL (79-100); MONO # 0.4 x10^3/uL (0.0-1.1); MONO % 7 % (0-9); NEUT # 3.1 x10^3/uL (1.8-7.7); NEUT % 57 % (31-73); PLATELET COUNT 218 x10^3/uL (140-400); RED BLOOD COUNT 3.93 x10^6/uL (4.30-5.70); RED CELL DISTRIBUTION WIDTH 13.4 % (11.5-14.5); WHITE BLOOD COUNT 5.4 x10^3/uL (4.0-11.0)
== END ==
LOC: LAB 12:17
PROVIDERS: ATTEND Family Medicine
DX: I10 Essential (primary) hypertension (principal); D64.9 Anemia, unspecified
CPT/HCPCS: 36415; 83090; 85025; 86141

== ENCOUNTER → 2020-04-10 | Outpatient (CLI) | payer OTHER | END | disposition home or self-care (01) | LOC: LAB 10:02 | PROVIDERS: ATTEND Internal Medicine Pulmonary Disease | DX: U07.1 COVID-19 (principal); J45.909 Unspecified asthma, uncomplicated; I48.91 Unspecified atrial fibrillation | CPT/HCPCS: U0003-CS ==

== ENCOUNTER → 2020-04-23 | Outpatient (CLI) | payer OTHER | END | disposition home or self-care (01) | LOC: LAB 12:21 | PROVIDERS: ATTEND Internal Medicine Pulmonary Disease | DX: U07.1 COVID-19 (principal); I48.91 Unspecified atrial fibrillation; J45.909 Unspecified asthma, uncomplicated | CPT/HCPCS: U0003-CS ==

== ENCOUNTER → 2020-06-08 | Outpatient (CLI) | payer OTHER ==
--- NOTE | 2020-06-08 16:41 | RAD ---
Chest radiograph 06/08/2020 12:00 AM INDICATION: Shortness of air COMPARISON: 06/26/2019 TECHNIQUE: Frontal and lateral views of the chest are provided. FINDINGS: The cardiomediastinal silhouette is within normal limits. There are no pleural effusions. There is no pulmonary vascular congestion. There is no pneumothorax. The lungs are clear. No significant osseous abnormality is identified. IMPRESSION: No acute cardiopulmonary process. Electronically signed by: Michelle Chakraborty MD (06/08/2020 4:38 PM) [facility]
== END | disposition home or self-care (01) ==
LOC: RAD 14:06
PROVIDERS: ATTEND Internal Medicine Pulmonary Disease
DX: R06.02 Shortness of breath (principal)
CPT/HCPCS: 71046

== ENCOUNTER → 2020-06-21 | Outpatient (CLI) | payer OTHER ==
[2020-06-21 12:34] LABS: BASO % 1 % (0-3); EOS # 0.1 x10^3/uL (0.0-0.7); EOS % 2 % (0-3); HEMATOCRIT 37.5 % (39.0-53.0); HEMOGLOBIN 12.9 g/dL (13.0-17.5); LYMPH # 1.8 x10^3/uL (1.0-4.8); LYMPH % 29 % (24-48); MEAN CORPUSCULAR HEMOGLOBIN 34 pg (25-35); MEAN CORPUSCULAR HGB CONC 34 g/dL (31-37); MEAN CORPUSCULAR VOLUME 100 fL (79-100); MONO # 0.4 x10^3/uL (0.0-1.1); MONO % 7 % (0-9); NEUT # 3.7 x10^3/uL (1.8-7.7); NEUT % 62 % (31-73); PLATELET COUNT 209 x10^3/uL (140-400); RED BLOOD COUNT 3.74 x10^6/uL (4.30-5.70); RED CELL DISTRIBUTION WIDTH 13.1 % (11.5-14.5)
[2020-06-21 12:44] LABS: ALBUMIN 3.7 g/dL (3.4-5.0); ALBUMIN/GLOBULIN RATIO 0.8 (1.0-1.7); CALCIUM 9.1 mg/dL (8.5-10.1); CREATININE 1.3 mg/dL (0.7-1.3); GFR 67.7; POTASSIUM 4.5 mmol/L (3.5-5.1); TOTAL PROTEIN 8.1 g/dL (6.4-8.2)
[2020-06-21 12:47] LABS: CHOLESTEROL/HDL RATIO 2.9
== END ==
LOC: LAB 11:49
PROVIDERS: ATTEND Family Medicine
DX: Z12.5 Encounter for screening for malignant neoplasm of prostate (principal); I10 Essential (primary) hypertension
CPT/HCPCS: 36415; 80053; 80061; 85025; G0103

== ENCOUNTER → 2020-07-04 | Outpatient (CLI) | payer OTHER ==
[~2020-07-04] MED LIST changes: +AMLO-187 PO; -AMLO10TA8 PO
[2020-07-04 09:55] LABS: BILIRUBIN,URINE NEGATIVE (NEG); CLARITY,URINE CLEAR; COLOR,URINE YELLOW; NITRITE,URINE NEGATIVE (NEG); PH,URINE 5.5 (<5.0-8.0); PROTEIN,URINE NEGATIVE (NEG-TRACE); UROBILINOGEN,URINE 0.2 mg/dL (0.2 mg/dL)
[2020-07-04 10:20] LABS: RBC,URINE 0 /HPF (0-2)
[2020-07-04 10:21] LABS: BACTERIA,URINE 0 /HPF (0-FEW)
== END ==
LOC: LAB 09:14
PROVIDERS: ATTEND Family Medicine
DX: N45.1 Epididymitis (principal)
CPT/HCPCS: 81001

== ENCOUNTER → 2020-08-15 | Outpatient (CLI) | payer OTHER | LOC: LAB 11:53 | PROVIDERS: ATTEND Internal Medicine Pulmonary Disease | DX: Z01.812 Encounter for preprocedural laboratory examination (principal); R07.9 Chest pain, unspecified; I48.91 Unspecified atrial fibrillation; Z20.828 Contact with and (suspected) exposure to other viral communicable diseases | CPT/HCPCS: 87426 ==

== ENCOUNTER 2020-08-18 14:47 | Emergency (ER) | payer OTHER ==
[~2020-08-18] VITALS: Ht 193 cm; Wt 113.6 kg
[2020-08-18 15:24] LABS: BASO # 0.1 x10^3/uL (0.0-0.2); BASO % 1 % (0-3); EOS # 0.2 x10^3/uL (0.0-0.7); EOS % 2 % (0-3); HEMATOCRIT 39.2 % (39.0-53.0); HEMOGLOBIN 13.3 g/dL (13.0-17.5); LYMPH % 30 % (24-48); MEAN CORPUSCULAR HEMOGLOBIN 34 pg (25-35); MEAN CORPUSCULAR HGB CONC 34 g/dL (31-37); MEAN CORPUSCULAR VOLUME 100 fL (79-100); MONO # 0.6 x10^3/uL (0.0-1.1); MONO % 9 % (0-9); NEUT # 3.9 x10^3/uL (1.8-7.7); NEUT % 58 % (31-73); PLATELET COUNT 245 x10^3/uL (140-400); RED BLOOD COUNT 3.91 x10^6/uL (4.30-5.70); RED CELL DISTRIBUTION WIDTH 12.8 % (11.5-14.5); WHITE BLOOD COUNT 6.8 x10^3/uL (4.0-11.0)
[2020-08-18 15:30] LABS: CALCIUM 9.1 mg/dL (8.5-10.1); CREATININE 1.1 mg/dL (0.7-1.3); GFR 82.1; POTASSIUM 4.1 mmol/L (3.5-5.1)
[2020-08-18 15:35] LABS: ALBUMIN 3.6 g/dL (3.4-5.0); ALBUMIN/GLOBULIN RATIO 0.8 (1.0-1.7); TOTAL BILIRUBIN 0.8 mg/dL (0.2-1.0); TOTAL PROTEIN 8.2 g/dL (6.4-8.2)
--- NOTE | 2020-08-18 16:15 | PHYS DOC ---
Past Medical History Past Medical History: A-Fib, Asthma, Other Additional Past Medical Histor: AAA (KENY COFFEY DO) Past Surgical History: Other Additional Past Surgical Histo: URETHRAL RESECTION, ABLATION (KENY COFFEY DO) Smoking Status: Never Smoker Alcohol Use: Occasionally Drug Use: None (KENY COFFEY DO) General Adult EDM: Chief Complaint: CHEST PAIN HPI: HPI: Patient is a 60 year old male who presents to ER for evaluation of chest pain for the last 2 days associated with some neck pain and body ache. Patient has history of atrial fibrillation, had ablation in the past. Patient had COVID-19 infection in February. He was tested for Covid again 4 days ago and it was negative. Patient denies any sweating, no nausea, no trouble breathing. Patient said he had chest pain whenever he felt his heartbeat. (KENY COFFEY DO) Review of Systems: Review of Systems: Constitutional: Denies fever or chills. [] Eyes: Denies change in visual acuity. [] HENT: Denies nasal congestion or sore throat. [] Respiratory: Denies cough or shortness of breath. [] Cardiovascular: POSITIVE FOR chest pain , NO edema. [] GI: Denies abdominal pain, nausea, vomiting, bloody stools or diarrhea. [] : Denies dysuria. [] Musculoskeletal: Denies back pain or joint pain. [] Integument: Denies rash. [] Neurologic: Denies headache, focal weakness or sensory changes. [] Endocrine: Denies polyuria or polydipsia. [] Lymphatic: Denies swollen glands. [] Psychiatric: Denies depression or anxiety. [] (KENY COFFEY DO) Heart Score: HEART Score for Chest Pain: HEART Score for Chest Pain Response (Comments) Value History Slighlty/Non-Suspicious 0 ECG Normal 0 Age >45 - < 65 1 Risk Factors 1 or 2 Risk Factors 1 Troponin < Normal Limit 0 Total 2 Risk Factors: Risk Factors: DM, Current or recent (<one month) smoker, HTN, HLP, family history of CAD, obesity. Risk Scores: Score 0 - 3: 2.5% MACE over next 6 weeks - Discharge Home Score 4 - 6: 20.3% MACE over next 6 weeks - Admit for Clinical Observation Score 7 - 10: 72.7% MACE over next 6 weeks - Early Invasive Strategies (KENY COFFEY DO) Allergies: Allergies: Allergies Coded Allergies Type Severity Reaction Last Updated Verified Sulfa (Sulfonamide Antibiotics) Allergy Intermediate Hives 02/01/15 Yes (KENY COFFEY DO) Physical Exam: PE: Constitutional: Well developed, well nourished, no acute distress, non-toxic appearance. [] HENT: Normocephalic, atraumatic, bilateral external ears normal, oropharynx moist, no oral exudates, nose normal. [] Eyes: PERRLA, EOMI, conjunctiva normal, no discharge. [] Neck: Normal range of motion, no tenderness, supple, no stridor. [] Cardiovascular:Heart rate regular rhythm, no murmur [] Lungs & Thorax: Bilateral breath sounds clear to auscultation [] Abdomen: Bowel sounds normal, soft, no tenderness, no masses, no pulsatile masses. [] Skin: Warm, dry, no erythema, no rash. [] Back: No tenderness, no CVA tenderness. [] Extremities: No tenderness, no cyanosis, no clubbing, ROM intact, no edema. [] Neurologic: Alert and oriented X 3, normal motor function, normal sensory function, no focal deficits noted. [] Psychologic: Affect normal, judgement normal, mood normal. [] (KENY COFFEY DO) PE: Constitutional: Well developed, well nourished, no acute distress, non-toxic appearance HENT: Normocephalic, atraumatic Eyes: Conjunctiva normal, no discharge Neck: Normal range of motion, no tenderness, supple Lungs & Thorax: No respiratory distress, equal chest rise and fall Abdomen: Soft, no tenderness Skin: Warm, dry, no erythema, no rash Extremities: No tenderness, ROM intact, no edema Neurologic: Alert and oriented X 3, no focal deficits noted Psychologic: Affect normal, judgment normal (ESTHER JOYCE DO) Current Patient Data: Labs: Laboratory Tests Test 08/18/20 15:07 White Blood Count 6.8 x10^3/uL (4.0-11.0) Red Blood Count 3.91 x10^6/uL (4.30-5.70) L Hemoglobin 13.3 g/dL (13.0-17.5) Hematocrit 39.2 % (39.0-53.0) Mean Corpuscular Volume 100 fL (79-100) Mean Corpuscular Hemoglobin 34 pg (25-35) Mean Corpuscular Hemoglobin Concent 34 g/dL (31-37) Red Cell Distribution Width 12.8 % (11.5-14.5) Platelet Count 245 x10^3/uL (140-400) Neutrophils (%) (Auto) 58 % (31-73) Lymphocytes (%) (Auto) 30 % (24-48) Monocytes (%) (Auto) 9 % (0-9) Eosinophils (%) (Auto) 2 % (0-3) Basophils (%) (Auto) 1 % (0-3) Neutrophils # (Auto) 3.9 x10^3/uL (1.8-7.7) Lymphocytes # (Auto) 2.0 x10^3/uL (1.0-4.8) Monocytes # (Auto) 0.6 x10^3/uL (0.0-1.1) Eosinophils # (Auto) 0.2 x10^3/uL (0.0-0.7) Basophils # (Auto) 0.1 x10^3/uL (0.0-0.2) Sodium Level 138 mmol/L (136-145) Potassium Level 4.1 mmol/L (3.5-5.1) Chloride Level 103 mmol/L (98-107) Carbon Dioxide Level 30 mmol/L (21-32) Anion Gap 5 (6-14) L Blood Urea Nitrogen 12 mg/dL (8-26) Creatinine 1.1 mg/dL (0.7-1.3) Estimated GFR (Cockcroft-Gault) 82.1 BUN/Creatinine Ratio 11 (6-20) Glucose Level 83 mg/dL (70-99) Calcium Level 9.1 mg/dL (8.5-10.1) Magnesium Level 2.0 mg/dL (1.8-2.4) Total Bilirubin 0.8 mg/dL (0.2-1.0) Aspartate Amino Transferase (AST) 19 U/L (15-37) Alanine Aminotransferase (ALT) 24 U/L (16-63) Alkaline Phosphatase 95 U/L (46-116) Troponin I Quantitative < 0.017 ng/mL (0.000-0.055) JM-Uxy-I-Type Natriuretic Peptide 113 pg/mL (0-124) Total Protein 8.2 g/dL (6.4-8.2) Albumin 3.6 g/dL (3.4-5.0) Albumin/Globulin Ratio 0.8 (1.0-1.7) L Lipase 191 U/L (73-393) Laboratory Tests 08/18/20 15:07 Laboratory Tests 08/18/20 15:07 Vital Signs: Vital Signs Date Time Temp Pulse Resp B/P (MAP) Pulse Ox O2 Delivery O2 Flow Rate FiO2 08/18/20 15:57 52 160/78 (105) 100 Room Air 08/18/20 15:02 98.1 18 98.1 (KENY COFFEY DO) EKG: EKG: EKG was done at 1456, heart rate of 51 beats per minutes, sinus rhythm, no ST segment elevation. (KENY COFFEY DO) Radiology/Procedures: Radiology/Procedures: [][facility] [address] [place] [address] IMAGING REPORT Signed PATIENT: SERGEI NEWBY ACCOUNT: [id number] : 1960 LOCATION: ER AGE: 60 SEX: M EXAM STATUS: REG ER ORD. PHYSICIAN: KENY COFFEY DO REASON: chest pain PROCEDURE: PORTABLE CHEST 1V INDICATION: Reason: chest pain / Spl. Instructions: / History: COMPARISON: June 08, 2020 FINDINGS: Single view of chest obtained. Cardiac silhouette is upper limits of normal in size. Fullness of the bilateral pulmonary hilum is again seen. Mild interstitial prominence bilaterally. IMPRESSION: * Mild interstitial prominence bilaterally. Could be secondary to mild pulmonary vascular congestion or mild interstitial infiltrate. Electronically signed by: Joel Waldron MD (08/18/2020 3:21 PM) [id number] DICTATED and SIGNED BY: JOEL WALDRON MD DATE: 08/18/20 [id number] (KENY COFFEY DO) Radiology/Procedures: PROCEDURE: CT ANGIOGRAPHY CHEST EXAM: CT ANGIOGRAPHY OF THE CHEST WITH AND WITHOUT CONTRAST. HISTORY: Chest pain, shortness of breath. TECHNIQUE: Computed tomographic angiography of the chest was performed before and after the intravenous administration of iodinated contrast. 3-D maximum intensity projections were also performed. One or more of the following individualized dose reduction techniques were utilized for this examination: 1. Automated exposure control. 2. Adjustment of the mA and/or kV according to patient size. 3. Use of iterative reconstruction technique. COMPARISON: 08/25/2019. FINDINGS: Images of the upper abdomen reveal no acute abnormality. Bone windows reveal no suspicious lesions. No pulmonary emboli are identified. There is no aortic dissection or aneurysm. There is a common origin of the left common carotid and brachiocephalic arteries, a variant of normal. There are no pathologically enlarged mediastinal or axillary lymph nodes. There is no pleural or pericardial effusion. The heart is not enlarged. An uncalcified nodule in the right upper lobe measures 6 mm, increased from 5 x 4 mm. IMPRESSION: 1. No pulmonary embolism. 2. A 6 mm right upper lobe nodule appears slightly increased since 08/25/2019. Another follow-up is suggested in 3-6 months. Electronically signed by: Carla Kaiser MD (08/18/2020 7:54 PM) [facility] (ESHTER JOYCE DO) Course & Med Decision Making: Course & Med Decision Making Pertinent Labs and Imaging studies reviewed. (See chart for details) Patient is a 60-year-old male who presented to ER for evaluation of chest pain. Patient is recovering from COVID-19 infection 5 months ago. Patient has history of atrial fibrillation status post ablation. He is scheduled for an echocardiogram done at the end of this month. EKG and cardiac enzymes normal so far. Patient did not want to stay in the hospital. Will obtain a CTA of the chest to rule out PE or dissection. If the study is negative for PE or dissection patient will be discharged home. Patient care was turned over to Dr. Joyce at shift change. (KENY COFFEY DO) Course & Med Decision Making 1800- Signout received from Dr. Coffey for patient with atypical chest pain. EKG stable. Labs reviewed. Troponin WNL. Patient pending CTA chest. CTA chest without PE. Notation of 6mm pulmonary nodule which has increased in s ize since last noted. Patient given copy of CT results to give to PCP for future re-evaluation in 3-6 months as recommended. 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 Discussed findings and plan with patient, who acknowledges understanding and agreement. (ESTHER JOYCE DO) Dragon Disclaimer: Dragon Disclaimer: This electronic medical record was generated, in whole or in part, using a voice recognition dictation system. (KENY COFFEY DO) Departure Departure Impression: Primary Impression: Chest pain Qualified Codes: R07.9 - Chest pain, unspecified Additional Impression: Pulmonary nodule Disposition: DC HOME SELF CARE/HOMELESS Condition: STABLE Referrals: GILBERTO CONWAY MD (PCP) MARIAM RIDLEY MD Patient Instructions: Chest Pain (Nonspecific), Pulmonary Nodule, [id number] Additional Instructions: Please give copy of your CT results to your doctors for future follow-up/re-evaluation in next 3-6 months. KENY COFFEY DO Aug 18, 2020 16:15 ESTHER JOYCE DO Aug 18, 2020 20:21
--- NOTE | 2020-08-18 16:45 | EKG ---
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
--- NOTE | 2020-08-18 16:46 | RAD ---
INDICATION: Reason: chest pain / Spl. Instructions: / History: COMPARISON: June 08, 2020 FINDINGS: Single view of chest obtained. Cardiac silhouette is upper limits of normal in size. Fullness of the bilateral pulmonary hilum is again seen. Mild interstitial prominence bilaterally. IMPRESSION: * Mild interstitial prominence bilaterally. Could be secondary to mild pulmonary vascular congestion or mild interstitial infiltrate. Electronically signed by: Bigg Mark MD (08/18/2020 3:21 PM) [id number]
[2020-08-18] MEDS ORDERED: CONTRAST GIVEN. MC PRN (19:00)
[2020-08-18] MEDS ORDERED: IOHEXOL 350 MG/ML 100 ML VIAL. IV ONE (19:00)
--- NOTE | 2020-08-18 19:57 | RAD ---
EXAM: CT ANGIOGRAPHY OF THE CHEST WITH AND WITHOUT CONTRAST. HISTORY: Chest pain, shortness of breath. TECHNIQUE: Computed tomographic angiography of the chest was performed before and after the intravenous administration of iodinated contrast. 3-D maximum intensity projections were also performed. One or more of the following individualized dose reduction techniques were utilized for this examination: 1. Automated exposure control. 2. Adjustment of the mA and/or kV according to patient size. 3. Use of iterative reconstruction technique. COMPARISON: 08/25/2019. FINDINGS: Images of the upper abdomen reveal no acute abnormality. Bone windows reveal no suspicious lesions. No pulmonary emboli are identified. There is no aortic dissection or aneurysm. There is a common origin of the left common carotid and brachiocephalic arteries, a variant of normal. There are no pathologically enlarged mediastinal or axillary lymph nodes. There is no pleural or pericardial effusion. The heart is not enlarged. An uncalcified nodule in the right upper lobe measures 6 mm, increased from 5 x 4 mm. IMPRESSION: 1. No pulmonary embolism. 2. A 6 mm right upper lobe nodule appears slightly increased since 08/25/2019. Another follow-up is suggested in 3-6 months. Electronically signed by: Carla Kaiser MD (08/18/2020 7:54 PM) [facility]
[2020-08-18 20:30] VITALS: BP 168/85
== END 2020-08-18 20:42 | disposition home or self-care (01) ==
LOC: ER 14:47
DX: R07.89 Other chest pain (principal); R91.1 Solitary pulmonary nodule; Z20.828 Contact with and (suspected) exposure to other viral communicable diseases; I48.91 Unspecified atrial fibrillation; J45.909 Unspecified asthma, uncomplicated; Z88.2 Allergy status to sulfonamides
CPT/HCPCS: 36415; 71045; 71275; 80053; 83690; 83735; 83880; 84484; 85025; 93005; 99285; C9803; Q9967; U0003

== ENCOUNTER → 2020-09-18 | Outpatient (CLI) | payer OTHER ==
[~2020-09-18] MED LIST changes: +ASCO500C PO; +ASPI-886 PO; +ATEN-56 PO; +BECL10.62 IH; +CHOL500050 PO; +CLON2TAB PO; +CLONAZEPAM1 MG PO; +CLOP75TA PO; +DABI75CA3 PO; +FERR-36 PO; +FLEC100T PO; +HYDR-2867 PO; +LISI20TA18 PO; +MEXI200C PO
--- NOTE | 2020-09-18 16:49 | CARD ---
MR#: [id number] Date of Study: 09/18/2020 Ordering Physician: MARIAM RIDLEY, Referring Physician: MARIAM RIDLEY, Tech: Amairani Hewitt [facility] APPROVED REPORT EXAM: Two-dimensional and M-mode echocardiogram with Doppler and color Doppler. Other Information Quality : Good Rhythm : NSR INDICATION 2D DIMENSIONS RVDd4.0 (2.9-3.5cm)Left Atrium(2D)4.7 (1.6-4.0cm) IVSd1.1 (0.7-1.1cm)Aortic Root(2D)4.3 (2.0-3.7cm) LVDd5.4 (3.9-5.9cm)LVOT Diameter3.0 (1.8-2.4cm) PWd1.0 (0.7-1.1cm)LVDs3.4 (2.5-4.0cm) FS (%) 37.2 %SV95.3 ml Aortic Valve AoV Peak [place].158.2cm/sAoV VTI33.8cm AO Peak GR.10.0mmHgLVOT Peak [place].145.7cm/s AO Mean GR.5mmHgAVA (VMAX)6.34cm2 Mitral Valve MV E Mawmrzsg572.4cm/sMV DECEL YURU677iq MV A Namvlyhb35.3cm/sE/A Ratio1.9 Pulmonary Valve PV Peak Tqaqoxux526.3cm/s Pulmonary Vein S1 Fhrbtoli40.6cm/sD2 Sflkvpzd45.1cm/s PVa [id number] LEFT VENTRICLE The left ventricle is normal size. There is borderline concentric left ventricular hypertrophy. The l eft ventricular systolic function is normal and the ejection fraction is within normal range. Estimat ed ejection fraction 60-65%. There is normal LV segmental wall motion. The left ventricular diastolic function and filling is normal for age. RIGHT VENTRICLE The right ventricle is normal size. There is normal right ventricular wall thickness. The right ventr icular systolic function is normal. ATRIA The left atrium size is normal. The right atrium size is normal. The interatrial septum is intact wit h no evidence for an atrial septal defect or patent foramen ovale as noted on 2-D or Doppler imaging. AORTIC VALVE The aortic valve is normal in structure and function. Doppler and Color Flow revealed mild aortic reg urgitation. There is no significant aortic valvular stenosis. MITRAL VALVE The mitral valve is normal in structure and function. There is no mitral valve stenosis. Doppler and Color-flow revealed mild mitral regurgitation. TRICUSPID VALVE The tricuspid valve is normal in structure and function. Doppler and Color Flow revealed trace tricus pid regurgitation. Estimated PAP 22 mmHg. PULMONIC VALVE The pulmonary valve is normal in structure and function. Doppler and Color Flow revealed trace pulmon ic valvular regurgitation. GREAT VESSELS The aortic root is mildly enlarged. The ascending aorta is mildly dilated. The pulmonary artery is no rmal. The IVC is normal in size and collapses >50% with inspiration. PERICARDIAL EFFUSION There is no evidence of significant pericardial effusion. Critical Notification Critical Value: No <Conclusion> The left ventricle is normal size. The left ventricular systolic function is normal and the ejection fraction is within normal range. Estimated ejection fraction 60-65%. There is borderline concentric left ventricular hypertrophy. Doppler and Color Flow revealed mild aortic regurgitation. There is no significant aortic valvular stenosis. Doppler and Color-flow revealed mild mitral regurgitation. Doppler and Color Flow revealed trace tricuspid regurgitation. Estimated PAP 22 mmHg. The ascending aorta is mildly dilated. Signed by : Alex Jackson MD Electronically Approved : 09/18/2020 16:49:05
== END ==
LOC: CARD 10:38
PROVIDERS: ATTEND Internal Medicine Cardiovascular Disease
DX: I34.0 Nonrheumatic mitral (valve) insufficiency (principal); I11.9 Hypertensive heart disease without heart failure
CPT/HCPCS: 93306

== ENCOUNTER → 2020-09-19 | Outpatient (CLI) | payer OTHER ==
--- NOTE | 2020-09-19 10:24 | RAD ---
EXAM: Cervical spine, 5 views. HISTORY: Pain. COMPARISON: None. FINDINGS: 5 views of the cervical spine are obtained. There is mild cervical kyphosis. There is a chr onic anterior superior endplate depression at C6. There is degenerative endplate remodeling with disc space narrowing at C5-C6 and C6-C7. There is multilevel facet arthropathy. IMPRESSION: 1. Multilevel degenerative change involving the cervical spine, primarily at C5-C7. 2. Chronic appearing anterior superior endplate depression at C6. Electronically signed by: Augusta Rodgers MD (09/19/2020 10:22 AM) [id number]
== END ==
LOC: RAD 09:24
PROVIDERS: ATTEND Family Medicine
DX: M47.812 Spondylosis without myelopathy or radiculopathy, cervical region (principal)
CPT/HCPCS: 72050

== ENCOUNTER → 2020-09-29 | Outpatient (CLI) | payer OTHER ==
--- NOTE | 2020-09-29 11:52 | KCIC ---
MR CERVICAL SPINE WO DATE: 09/29/2020 8:44 AM INDICATION: NECK PAIN ON LEFT SIDE. Persistant left side neck pain, stiffness. Abnormal xray. LUE ra diculopathy TECHNIQUE: Multiplanar multisequence magnetic resonance imaging of the cervical spine was performed w ithout administration of intravenous contrast using the standard cervical spine protocol. COMPARISON: Radiograph 09/19/2020. FINDINGS: Straightening of the cervical lordosis. No acute fracture. Moderate multilevel degenerative disc raymond iccation and disc height loss. Degenerative endplate edema at C6-7. The spinal cord is normal in signal intensity. On the limited views of the cranial cavity and brain, the cerebellum and kayleen have normal morphology and signal characteristics. No Chiari malformation. No soft tissue abnormality. Normal signal voids are present in the vertebral arteries. C2-3: Moderate facet arthropathy. No significant spinal canal stenosis or neural foraminal narrowing. C3-4: Disc osteophyte complex. Uncovertebral hypertrophy. Mild facet arthropathy. Ligamentum flavum t hickening mild right and moderate left neural foraminal narrowing. Moderate spinal canal stenosis. C4-5: Disc osteophyte complex. Uncovertebral hypertrophy. Mild right and moderate left facet arthropa thy. Mild right and moderate to severe left neural foraminal narrowing. Mild spinal canal stenosis. C5-6: Disc osteophyte complex. Uncovertebral hypertrophy. Mild facet arthropathy. Moderate to severe neuroforaminal narrowing. Mild spinal canal stenosis. C6-7: Disc osteophyte complex. Uncovertebral hypertrophy. Mild neural foraminal narrowing. Mild spina l canal stenosis. C7-T1: Mild left facet arthropathy. No significant spinal canal stenosis or neural foraminal narrowin g. IMPRESSION: Moderate to severe cervical spondylosis, detailed level by level above. Electronically signed by: Murtaza Poole MD (09/29/2020 11:49 AM) [id number]
== END ==
LOC: KCIC MRI 08:35
PROVIDERS: ATTEND Family Medicine
DX: M47.812 Spondylosis without myelopathy or radiculopathy, cervical region (principal); M48.02 Spinal stenosis, cervical region
CPT/HCPCS: 72141

== ENCOUNTER → 2020-10-31 | Outpatient (CLI) | payer OTHER ==
[~2020-10-31] MED LIST changes: -ASPI-886 PO; -CLONAZEPAM1 MG PO; -CLOP75TA PO; -DABI75CA3 PO; +IOHEXOL 180 MG/ML 10 ML VIAL. ONE; -MEXI200C PO; +methylPREDNISolone ACETATE 40 MG/ML VIAL. ONE; +methylPREDNISolone ACETATE 80 MG/ML VIAL. ONE
--- NOTE | 2020-10-31 12:46 | PDOC4 ---
PROCEDURE Procedure Patient was consented for cervical epidural steroid injection. Risks were d iscussed including but not limited to: Bleeding, infection, possibility of epidural hematoma and subsequent neurological compromise, dural puncture, headaches, spinal cord and/or nerve damage, side effects of steroid medication, and poor results regarding pain control. Patient understands and wished to proceed. Procedure cervical epidural steroid injection at the C6-7 level, using local anesthetic under sterile prep and drape using C-arm fluoroscopic guidance under local anesthesia medications injected ; 120 mg Depo-Medrol + 5 mL normal saline and 2 mL contrast; condition at discharge is stable patient tolerated procedure well. and had no complications ELBA LYONS MD Oct 31, 2020 12:46
--- NOTE | 2020-10-31 12:46 | PDOC1 ---
INITIAL PAIN CONSULT DATE OF SERVICE: DOS: DATE: 10/31/20 TIME: 12:39 CHIEF COMPLAINT: Chief Complaint: Neck and left upper extremity pain HISTORY OF PRESENT ILLNESS: 60-year-old male presents history of pain base of neck shoulder left upper extremity for about 3 months not the result of any specific injury or accident that he is aware, but has gotten worse over time with pain rating to the anterior upper chest around the clavicular region as well as the posterior scapular region base of the neck on the left side rating the left arm into the triceps region as well. Patient reports it was difficult to take a deep breath initially has had some massage techniques as well as physical therapy with his left shoulder and upper extremity without significant improvement. Patient reports pain is now constant throbbing aching left side as described radiating to left arm. Patient has tried meloxicam as well as Tylenol which were mildly deep decreasing the pain also nabumetone which was significantly decreasing the pain but only took this for about 1 month. Patient had no other formal therapies or treatments or chiropractic down at this time. Patient have an MRI scan cervical spine showing multilevel degenerative change with C4-5 mild spinal canal stenosis mild right and moderate to severe left neuroforaminal narrowing C5-6 shows moderate to severe neuroforaminal narrowing and mild stenosis C6-7 shows mild neuroforaminal narrowing and mild spinal canal stenosis as well. Patient rates his disability rating 0-10 10 being the worst is a 3 with mary jane tomical disability occupational activity 8 with recreation to a social activity and sexual behavior 0 with self-care and 6 with life support activities especially sleeping. PAST MEDICAL HISTORY: PMH: Atrial fibrillation status post ablation PREVIOUS SURGERIES: Past Surgical Hx: Urethral stricture dilation, ablation for atrial fibrillation CURRENT MEDICATIONS: Current Meds: Active Scripts Medications Dose Route/Sig Max Daily Dose Days Date Category Amlodipine Besylate 10 Mg Tablet 10 Mg PO DAILY 06/26/19 Rx Multi-Day Vitamins (Multivitamin) 1 Each Tablet 1 Tab PO DAILY 02/01/15 Reported Atenolol 25 Mg Tablet 1 Tab PO BID 02/01/15 Reported Ventolin Hfa Inhaler (Albuterol Sulfate) 18 Gm Hfa.aer.ad 2 Puff IH PRN Q4-6HRS 02/01/15 Reported [asthmanex] 02/01/15 Reported Fish Oil 1,200 Mg Softgel ([place]-3 Fatty Acids/Fish Oil) 1 Each Capsule 1 Each PO BID 02/01/15 Reported Aspirin 325 Mg Tablet 1 Tab PO DAILY 02/01/15 Reported Clonazepam 0.25 Mg Tab.rapdis 1.5 Mg PO BID 02/01/15 Reported ALLERGIES; Allergies: Coded Allergies: Sulfa (Sulfonamide Antibiotics) (Verified Allergy, Intermediate, Hives, 02/01/15) FAMILY HISTORY: Family Hx: Diabetes, hypertension SOCIAL HISTORY: Social Hx: Patient drinks 1 alcoholic drink a week on average does not smoke or use any illegal illicit recreational drugs is single and lives locally in [facility]. 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 REVIEW OF SYSTEMS: ROS: Positive for those items mentioned in history of present illness, all systems are reviewed, otherwise negative ,and are complete full and well-documented on patient's chart. PHYSICAL EXAM: VS: Blood pressure is 157/97 pulse 61 respirations 18 temperature 98.3 F height is 6 foot weight is 269 pounds PE: PHYSICAL EXAMINATION: GENERAL: The patient is awake, alert, oriented, appropriate, very pleasant demeanor HEENT: Shows normocephalic, atraumatic. Extraocular movements are intact and symmetrical. Oral cavity: Mucous membranes moist and pink. Dentition is intact. NECK: Shows anterior throat supple without palpable lymphadenopathy noted. Swallow reflex symmetrical. CHEST: Shows normal on inspection. Breath sounds are clear bilaterally, no rales rhonchi wheezes auscultated. HEART: Shows S1, S2 clear. No murmurs auscultated. ABDOMEN: Soft, nontender, nondistended, obese. No palpable organomegaly is noted. No rebound or guarding demonstrated. BACK: Shows spine grossly in the midline. Normal-appearing cervical lordotic curvature. There is slightly increased thoracic kyphosis, some minor flattening of the lumbar lordotic curvature. Lumbar paraspinous muscles show symmetrical on inspection, on palpation shows some moderate tenderness diffusely throughout the upper, middle and lower distribution of the paraspinous muscles bilaterally, but without specific trigger points, without radiation of pain. EXTREMITIES: Upper extremities show deep tendon reflexes 2+ in the biceps and triceps tendons. Motor exam is 5 on a scale of 5 with right rehabilitation services counselor strength, biceps and triceps flexion and 5/5 on the left. Peripheral pulses are 2+ radial. No peripheral edema is noted bilaterally. Upper extremities are warm and dry to touch, equal in color and appearance. SKIN: Shows warm and dry, good turgor. No edema. No sores, rashes or bruising throughout. IMPRESSION: Impression: 60-year-old male with history approximately 3 months, neck and left upper extremity pain, with radicular quality. MRI scan cervical spine as noted Plan: Options were discussed with the patient including conservative medical management physical therapies and interventional techniques. Patient would like to pursue interventional techniques. We discussed a cervical epidural steroid injection using description as well as anatomical model to describe procedure. Risks were discussed including but not limited to: Bleeding, infection, possibility of epidural hematoma and subsequent neurological compromise, dural puncture, headaches, spinal cord and/or nerve damage, side effects of steroid medication, and poor results regarding pain control. Patient understands and wished to proceed. Patient will return to clinic in approximate 2 weeks for follow-up, was counseled as to return appointment activity level and side effects to be aware of. Procedure cervical epidural steroid injection at the C6-7 level, using local anesthetic under sterile prep and drape using C-arm fluoroscopic guidance under local anesthesia medications injected ; 120 mg Depo-Medrol + 5 mL normal saline and 2 mL contrast; condition at discharge is stable patient tolerated procedure well. and had no complications ELBA LYOSN MD Oct 31, 2020 12:46
== END | disposition home or self-care (01) ==
LOC: PNCL 08:53
PROVIDERS: ATTEND Anesthesiology
DX: M54.2 Cervicalgia (principal); M79.602 Pain in left arm; I48.91 Unspecified atrial fibrillation; I10 Essential (primary) hypertension; J45.909 Unspecified asthma, uncomplicated; Z79.899 Other long term (current) drug therapy; Z98.890 Other specified postprocedural states; Z82.49 Family history of ischemic heart disease and other diseases of the circulatory system; Z83.3 Family history of diabetes mellitus; Z72.89 Other problems related to lifestyle; Z88.2 Allergy status to sulfonamides
CPT/HCPCS: 62321; J1030; J1040; Q9965

== ENCOUNTER 2020-11-05 19:41 | Inpatient (IN) | payer OTHER ==
[~2020-11-05] VITALS: Ht 193 cm; Wt 112.3 kg
[~2020-11-05 19:41] MED LIST changes: -IOHEXOL 180 MG/ML 10 ML VIAL. ONE; -methylPREDNISolone ACETATE 40 MG/ML VIAL. ONE; -methylPREDNISolone ACETATE 80 MG/ML VIAL. ONE
[2020-11-05 19:54] LABS: BASO # 0.1 x10^3/uL (0.0-0.2); BASO % 1 % (0-3); EOS # 0.1 x10^3/uL (0.0-0.7); EOS % 1 % (0-3); HEMATOCRIT 42.1 % (39.0-53.0); HEMOGLOBIN 14.1 g/dL (13.0-17.5); LYMPH # 1.7 x10^3/uL (1.0-4.8); LYMPH % 19 % (24-48); MEAN CORPUSCULAR HEMOGLOBIN 34 pg (25-35); MEAN CORPUSCULAR HGB CONC 34 g/dL (31-37); MEAN CORPUSCULAR VOLUME 101 fL (79-100); MONO # 1.1 x10^3/uL (0.0-1.1); MONO % 11 % (0-9); NEUT # 6.3 x10^3/uL (1.8-7.7); NEUT % 69 % (31-73); PLATELET COUNT 293 x10^3/uL (140-400); RED BLOOD COUNT 4.17 x10^6/uL (4.30-5.70); RED CELL DISTRIBUTION WIDTH 12.9 % (11.5-14.5); WHITE BLOOD COUNT 9.2 x10^3/uL (4.0-11.0)
[2020-11-05] MEDS ORDERED: ASPIRIN 325 MG TABLET PO ONE (20:00)
[2020-11-05 20:05] LABS: PROTHROMBIN TIME PATIENT 13.3 SEC (11.7-14.0)
[2020-11-05 20:06] LABS: CALCIUM 9.1 mg/dL (8.5-10.1); CREATININE 1.2 mg/dL (0.7-1.3); GFR 74.2; POTASSIUM 3.9 mmol/L (3.5-5.1)
[2020-11-05 20:13] LABS: ALBUMIN 3.5 g/dL (3.4-5.0); ALBUMIN/GLOBULIN RATIO 0.8 (1.0-1.7); MAGNESIUM 2.1 mg/dL (1.8-2.4); TOTAL BILIRUBIN 0.7 mg/dL (0.2-1.0); TOTAL PROTEIN 8.1 g/dL (6.4-8.2)
--- NOTE | 2020-11-05 20:19 | EKG ---
[facility] [address] [place] [address] Test Date: 2020-11-05 Test Time: 19:47:21 Pat Name: SERGEI NEWBY Department: Room: Gender: M Adjuster Electrical Contacts: : 1960 Requested By: ESTHER JOYCE Order Number: [id number] Reading MD: Dwight Farris MD Measurements Intervals Mclean Rate: 65 P: -36 VT: 176 QRS: -1 QRSD: 104 T: 40 QT: 404 QTc: 421 Interpretive Statements SINUS RHYTHM VENTRICULAR PREMATURE COMPLEX(ES), TRIGEMINY Electronically Signed On 11-06-2020 11:14:11 PREBOARDER by Dwight Farris MD
[2020-11-05] MEDS ORDERED: HEPARIN for IV BOLUS 10,000 UNIT/10 ML VIAL. IV ONE (20:30)
[2020-11-05] MEDS ORDERED: HEPARIN 25,000UTS/250ML PREMIX 250 ML IV PRN (20:30)
[2020-11-05] MEDS ORDERED: fentaNYL PF VIAL 100 MCG/2 ML VIAL IV PRN (20:45)
[2020-11-05] MEDS ORDERED: ONDANSETRON PF 4 MG/2 ML VIAL. IV PRN (20:45)
--- NOTE | 2020-11-05 21:04 | RAD ---
Single view chest dated 11/05/2020. Comparison made to 08/18/2020. Clinical data indication: Chest discomfort. FINDINGS: Single upright portable exam performed. Heart and mediastinal contours are stable. Lungs are clear. N o consolidation or pleural effusion. No pneumothorax. IMPRESSION: No acute radiographic abnormality. Electronically signed by: Eric Galindo MD (11/05/2020 9:02 PM) ALICELOU
--- NOTE | 2020-11-05 21:55 | PHYS DOC ---
Past Medical History Past Medical History: A-Fib, Asthma, Other Additional Past Medical Histor: AAA Past Surgical History: Other Additional Past Surgical Histo: URETHRAL RESECTION, ABLATION Smoking Status: Never Smoker Alcohol Use: Occasionally Drug Use: None General Adult EDM: Chief Complaint: CHEST PAIN HPI: HPI: Patient is a 60-year-old male with a history of A. fib and hypertension who presents to the emergency department with chest pain and palpitations. He states his symptoms began last night at 2200 and include central chest discomfort that radiates to the neck and left arm, and the sensation of his heart skipping a beat. His symptoms have been constant at onset. He denies any aggravating or alleviating factors. He had an ablation 7 years ago for his A. fib and occasionally takes flecainide for breakthrough irregularities. Denies a ny nausea or vomiting, shortness of breath, dizziness, diaphoresis. He denies any significant cardiac history. He has a known stable AAA and his last echo was in September with no irregularities. Review of Systems: Review of Systems: Constitutional: Denies fever or chills, diaphoresis Eyes: Denies redness or eye pain HENT: Denies nasal congestion or sore throat Respiratory: Denies cough or shortness of breath Cardiovascular: Admits chest discomfort and palpitations GI: Denies abdominal pain, nausea, or vomiting : Denies dysuria or hematuria Musculoskeletal: Denies back pain or joint pain Integument: Denies rash or skin lesions Neurologic: Denies headache, focal weakness or sensory changes denies dizziness Complete systems were reviewed and found to be within normal limits, except as documented in this note. Heart Score: HEART Score for Chest Pain: HEART Score for Chest Pain Response (Comments) Value History Moderately Suspicious 1 ECG Normal 0 Age >45 - < 65 1 Risk Factors 1 or 2 Risk Factors 1 Troponin >3 x Normal Limit 2 Total 5 Risk Factors: Risk Factors: DM, Current or recent (<one month) smoker, HTN, HLP, family history of CAD, obesity. Risk Scores: Score 0 - 3: 2.5% MACE over next 6 weeks - Discharge Home Score 4 - 6: 20.3% MACE over next 6 weeks - Admit for Clinical Observation Score 7 - 10: 72.7% MACE over next 6 weeks - Early Invasive Strategies Current Medications: Current Medications Medications (Trade) Dose Ordered Sig/Svetlana Start Time Stop Time Status Last Admin Dose Admin Aspirin (Kourtney Aspirin) 325 mg 1X ONCE 11/05/20 20:00 11/05/20 20:01 DC 11/05/20 20:43 325 MG Fentanyl Citrate (Fentanyl 2ml Vial) 50 mcg Q2HR PRN 11/05/20 20:45 11/06/20 20:44 Heparin Sodium (Porcine) (Heparin Sodium) 4,000 unit 1X ONCE 11/05/20 20:30 11/05/20 20:38 DC 11/05/20 20:46 4,000 UNIT Heparin Sodium/ Dextrose 250 ml @ 0 mls/hr CONT PRN 11/05/20 20:30 11/05/20 20:47 14 MLS/HR Ondansetron HCl (Zofran) 4 mg PRN Q8HRS PRN 11/05/20 20:45 11/06/20 20:44 Allergies: Allergies: Allergies Coded Allergies Type Severity Reaction Last Updated Verified Sulfa (Sulfonamide Antibiotics) Allergy Intermediate Hives 02/01/15 Yes Physical Exam: PE: Constitutional: Well developed, well nourished, no acute distress, non-toxic a ppearance HENT: Normocephalic, atraumatic Eyes: PERRL, EOMI, conjunctiva normal, no discharge Neck: Normal range of motion, no tenderness, supple Lungs & Thorax: No respiratory distress, equal chest rise and fall Cardiac: Irregular rate and rhythm, no murmurs, radial pulses 2+ and irregular Abdomen: Soft, no tenderness Skin: Warm, dry, no erythema, no rash Back: No tenderness, no CVA tenderness Extremities: No tenderness, ROM intact, no edema Neurologic: Alert and oriented X 3, normal motor function, normal sensory function, no focal deficits noted Psychologic: Affect normal, judgment normal Current Patient Data: Labs: Laboratory Tests Test 11/05/20 19:46 White Blood Count 9.2 x10^3/uL (4.0-11.0) Red Blood Count 4.17 x10^6/uL (4.30-5.70) L Hemoglobin 14.1 g/dL (13.0-17.5) Hematocrit 42.1 % (39.0-53.0) Mean Corpuscular Volume 101 fL (79-100) H Mean Corpuscular Hemoglobin 34 pg (25-35) Mean Corpuscular Hemoglobin Concent 34 g/dL (31-37) Red Cell Distribution Width 12.9 % (11.5-14.5) Platelet Count 293 x10^3/uL (140-400) Neutrophils (%) (Auto) 69 % (31-73) Lymphocytes (%) (Auto) 19 % (24-48) L Monocytes (%) (Auto) 11 % (0-9) H Eosinophils (%) (Auto) 1 % (0-3) Basophils (%) (Auto) 1 % (0-3) Neutrophils # (Auto) 6.3 x10^3/uL (1.8-7.7) Lymphocytes # (Auto) 1.7 x10^3/uL (1.0-4.8) Monocytes # (Auto) 1.1 x10^3/uL (0.0-1.1) Eosinophils # (Auto) 0.1 x10^3/uL (0.0-0.7) Basophils # (Auto) 0.1 x10^3/uL (0.0-0.2) Prothrombin Time 13.3 SEC (11.7-14.0) Prothrombin Time INR 1.1 (0.8-1.1) Activated Partial Thromboplast Time 29 SEC (24-38) Sodium Level 136 mmol/L (136-145) Potassium Level 3.9 mmol/L (3.5-5.1) Chloride Level 100 mmol/L (98-107) Carbon Dioxide Level 30 mmol/L (21-32) Anion Gap 6 (6-14) Blood Urea Nitrogen 13 mg/dL (8-26) Creatinine 1.2 mg/dL (0.7-1.3) Estimated GFR (Cockcroft-Gault) 74.2 BUN/Creatinine Ratio 11 (6-20) Glucose Level 106 mg/dL (70-99) H Calcium Level 9.1 mg/dL (8.5-10.1) Magnesium Level 2.1 mg/dL (1.8-2.4) Total Bilirubin 0.7 mg/dL (0.2-1.0) Aspartate Amino Transferase (AST) 16 U/L (15-37) Alanine Aminotransferase (ALT) 31 U/L (16-63) Alkaline Phosphatase 90 U/L (46-116) Troponin I Quantitative 0.197 ng/mL (0.000-0.055) RA-Wky-P-Type Natriuretic Peptide 636 pg/mL (0-124) H Total Protein 8.1 g/dL (6.4-8.2) Albumin 3.5 g/dL (3.4-5.0) Albumin/Globulin Ratio 0.8 (1.0-1.7) L Lipase 98 U/L (73-393) Laboratory Tests 11/05/20 19:46 Laboratory Tests 11/05/20 19:46 Vital Signs: Vital Signs Date Time Temp Pulse Resp B/P (MAP) Pulse Ox O2 Delivery O2 Flow Rate FiO2 11/05/20 19:45 98.6 55 14 174/92 (119) 100 Room Air 98.6 EKG: EK. Normal sinus rhythm at a rate of 65 bpm, left axis deviation deviation, occasional PVCs no ST segment elevations or depressions. QTQTc 404 ms - 421 ms [] Radiology/Procedures: Radiology/Procedures: [] Course & Med Decision Making: Course & Med Decision Making Patient is a 60-year-old male with a history of A. fib who presents with chest pain and palpitations. Known stable ascending aortic aneurysm on imaging this past September due to location of patient's pain and presenting symptoms no further imaging is warranted. Plan to evaluate patient for acute coronary syndrome. Patient has elevated troponin and EKG without ST segment changes, plan to treat for NSTEMI and admit to cardiology. Pertinent Labs and Imaging studies reviewed. (See chart for details) Patient requiring admission for further evaluation and treatment. Discussed with (hospitalist) who is in agreement with admission. Discussed findings and plan with patient, who acknowledges understanding and agreement. Moody Disclaimer: Moody Disclaimer: This electronic medical record was generated, in whole or in part, using a voice recognition dictation system. Departure Departure Referrals: GILBERTO CONWAY MD (PCP) ESTHER JOYCE DO Nov 05, 2020 21:55
[2020-11-05 22:15] VITALS: BP 148/93
--- NOTE | 2020-11-05 22:15 | NUR ---
Patient admitted to [address] [place] [address] for NSTEMI. Patient continues to experience what he describes as palpitations which he states started the ronald of 11/04/20. Patient rates pain to midsternum 12/23 and describes it as achy and throbbing. Dr. Burns in room evaluating patient. Patient had a run of PVC's, Dr. Burns present and aware. Patient oriented to room, hospital policy, and visiting hours. RN will continue to monitor.
--- NOTE | 2020-11-05 22:24 | PDOC1 ---
History and Physical Date of Admission Date of Admission DATE: 11/05/20 TIME: 22:15 Identification/Chief Complaint Chief Complaint chest pain, palpitations Source Source: Chart review, Patient History of Present Illness History of Present Illness MR. Flores, is a 60-year-old male with a history of A. fib and hypertension who presents to the emergency department with chest pain and palpitations. He states his symptoms began last night at 2200 and include central chest discomfort that radiates to the neck and left arm, and the sensation of his heart skipping a beat. His symptoms have been constant at onset. He denies any aggravating or alleviating factors. He had an ablation 7 years ago for his A. fib and occasionally takes flecainide for breakthrough irregularities. Denies any nausea or vomiting, shortness of breath, dizziness, diaphoresis. He denies any significant cardiac history. He has a known stable AAA and his last echo was in September with no irregularities. Past Medical History Cardiovascular: AFIB, HTN, Other Pulmonary: Asthma Hepatobiliary: No pertinent hx Psych: No pertinent hx ENT: No pertinent hx Renal/: No pertinent hx Endocrine: No pertinent hx Dermatology: No pertinent hx Past Surgical History Past Surgical History: No pertinent history Family History Family History: No Significant Social History Smoke: No ALCOHOL: none Current Medications Current Medications Current Medications Aspirin (Kourtney Aspirin) 325 mg 1X ONCE PO Last administered on 11/05/20at 20:43; Start 11/05/20 at 20:00; Stop 11/05/20 at 20:01; Status DC Heparin Sodium (Porcine) (Heparin Sodium) 4,000 unit 1X ONCE IV Last administered on 11/05/20at 20:46; Start 11/05/20 at 20:30; Stop 11/05/20 at 20:38; Status DC Heparin Sodium/ Dextrose 250 ml @ 0 mls/hr CONT PRN IV PER PROTOCOL Last administered on 11/05/20at 20:47; Start 11/05/20 at 20:30 Ondansetron HCl (Zofran) 4 mg PRN Q8HRS PRN IV NAUSEA/VOMITING; Start 11/05/20 at 20:45; Stop 11/06/20 at 20:44 Fentanyl Citrate (Fentanyl 2ml Vial) 50 mcg Q2HR PRN IV PAIN; Start 11/05/20 at 20:45; Stop 11/06/20 at 20:44 Active Scripts Active Reported Vitamin C (Ascorbic Acid) 500 Mg Capsule.er 500 Mg PO DAILY Iron (Ferrous Sulfate) 325 Mg Tablet Unknown Dose PO DAILY Vitamin D3 (Cholecalciferol (Vitamin D3)) 1,250 Mcg Capsule Unknown Dose PO DAILY Klonopin (Clonazepam) 2 Mg Tablet 3 Mg PO DAILY Flecainide Acetate 100 Mg Tablet 1 Tab PO BID PRN Qvar Redihaler (Beclomethasone Dipropionate) 10.6 Gm Hfa.aeroba 2 Puff IH BID 30 Days Hydralazine Hcl 10 Mg Tablet 20 Mg PO BID Lisinopril 20 Mg Tablet 1 Tab PO BID Tenormin (Atenolol) 25 Mg Tablet 1 Tab PO BID 30 Days Multi-Day Vitamins (Multivitamin) 1 Each Tablet 1 Tab PO DAILY Ventolin Hfa Inhaler (Albuterol Sulfate) 18 Gm Hfa.aer.ad 2 Puff IH PRN Q4-6HRS Fish Oil 1,200 Mg Softgel (Fleming-3 Fatty Acids/Fish Oil) 1 Each Capsule 1 Each PO BID Allergies Allergies: Coded Allergies: Sulfa (Sulfonamide Antibiotics) (Verified Allergy, Intermediate, Hives, 02/01/15) ROS General: YES: Fatigue, Malaise PSYCHOLOGICAL ROS: No: Anxiety, Behavioral Disorder, Concentration difficultie, Decreased libido, Depression, Disorientation, Hallucinations, Hostility, Irritablity, Memory difficulties, Mood Swings, Obsessive thoughts, Physical abuse, Sexual abuse, Sleep disturbances, Suicidal ideation, Other Eyes: No Blurry vision, No Decreased vision, No Double vision, No Dry eyes, No Excessive tearing, No Eye Pain, No Itchy Eyes, No Loss of vision, No Photophobia, No Scotomata, No Uses contacts, No Uses glasses, No Other HEENT: No: Heacaches, Visual Changes, Hearing change, Nasal congestion, Nasal discharge, Oral lesions, Sinus pain, Sore Throat, Epistaxis, Sneezing, Snoring, Tinnitus, Vertigo, Vocal changes, Other Respiratory: No: Cough, Hemoptysis, Orthopnea, Pleuritic Pain, Shortness of breath, SOB with excertion, Sputum Changes, Stridor, Tachypnea, Wheezing, Other Cardiovascular: yes Chest Pain, yes Palpitations Gastrointestinal: No Nausea, No Vomiting, No Abdominal Pain, No Diarrhea, No Constipation, No Melena, No Hematochezia, No Other Genitourinary: No Dysuria, No Frequency, No Incontinence, No Hematuria, No Retention, No Discharge, No Urgency, No Pain, No Flank Pain, No Other, No , No , No , No , No , No , No Musculoskeletal: No Gait Disturbance, No Joint Pain, No Joint Stiffness, No Joint Swelling, No Muscle Pain, No Muscular Weakness, No Pain In:, No Swelling In:, No Other Neurological: No Behavorial Changes, No Bowel/Bladder ControlChng, No Confusion, No Dizziness, No Gait Disturbance, No Headaches, No Impaired Coord/balance, No Memory Loss, No Numbness/Tingling, No Seizures, No Speech Problems, No Tremors, No Visual Changes, No Weakness, No Other Skin: No Dry Skin, No Eczema, No Hair Changes, No Lumps, No Mole Changes, No Mottling, No Nail Changes, No Pruritus, No Rash, No Skin Lesion Changes, No Other, No Acne Physical Exam General: Alert, Oriented X3, Cooperative, mild distress HEENT: PERRLA, EOMI, Mucous membr. moist/pink Lungs: Clear to auscultation Heart: S1S2, RRR, no gallops, no murmurs Abdomen: Soft Rectal Exam: not examined Extremities: No clubbing, No cyanosis, No edema Skin: No rashes, No breakdown Neuro: Normal speech, Normal tone, Sensation intact Psych/Mental Status: Mental status NL, Mood NL Vitals Vitals Vital Signs Date Time Temp Pulse Resp B/P (MAP) Pulse Ox O2 Delivery O2 Flow Rate FiO2 11/05/20 21:28 51 152/91 (111) 100 Room Air 11/05/20 19:45 98.6 14 98.6 Labs Labs Laboratory Tests Test 11/05/20 19:46 White Blood Count 9.2 x10^3/uL (4.0-11.0) Red Blood Count 4.17 x10^6/uL (4.30-5.70) Hemoglobin 14.1 g/dL (13.0-17.5) Hematocrit 42.1 % (39.0-53.0) Mean Corpuscular Volume 101 fL (79-100) Mean Corpuscular Hemoglobin 34 pg (25-35) Mean Corpuscular Hemoglobin Concent 34 g/dL (31-37) Red Cell Distribution Width 12.9 % (11.5-14.5) Platelet Count 293 x10^3/uL (140-400) Neutrophils (%) (Auto) 69 % (31-73) Lymphocytes (%) (Auto) 19 % (24-48) Monocytes (%) (Auto) 11 % (0-9) Eosinophils (%) (Auto) 1 % (0-3) Basophils (%) (Auto) 1 % (0-3) Neutrophils # (Auto) 6.3 x10^3/uL (1.8-7.7) Lymphocytes # (Auto) 1.7 x10^3/uL (1.0-4.8) Monocytes # (Auto) 1.1 x10^3/uL (0.0-1.1) Eosinophils # (Auto) 0.1 x10^3/uL (0.0-0.7) Basophils # (Auto) 0.1 x10^3/uL (0.0-0.2) Prothrombin Time 13.3 SEC (11.7-14.0) Prothromb Time International Ratio 1.1 (0.8-1.1) Activated Partial Thromboplast Time 29 SEC (24-38) Sodium Level 136 mmol/L (136-145) Potassium Level 3.9 mmol/L (3.5-5.1) Chloride Level 100 mmol/L (98-107) Carbon Dioxide Level 30 mmol/L (21-32) Anion Gap 6 (6-14) Blood Urea Nitrogen 13 mg/dL (8-26) Creatinine 1.2 mg/dL (0.7-1.3) Estimated GFR (Cockcroft-Gault) 74.2 BUN/Creatinine Ratio 11 (6-20) Glucose Level 106 mg/dL (70-99) Calcium Level 9.1 mg/dL (8.5-10.1) Magnesium Level 2.1 mg/dL (1.8-2.4) Total Bilirubin 0.7 mg/dL (0.2-1.0) Aspartate Amino Transf (AST/SGOT) 16 U/L (15-37) Alanine Aminotransferase (ALT/SGPT) 31 U/L (16-63) Alkaline Phosphatase 90 U/L (46-116) Troponin I Quantitative 0.197 ng/mL (0.000-0.055) UE-Osy-L-Type Natriuretic Peptide 636 pg/mL (0-124) Total Protein 8.1 g/dL (6.4-8.2) Albumin 3.5 g/dL (3.4-5.0) Albumin/Globulin Ratio 0.8 (1.0-1.7) Lipase 98 U/L (73-393) Laboratory Tests Test 11/05/20 19:46 White Blood Count 9.2 x10^3/uL (4.0-11.0) Red Blood Count 4.17 x10^6/uL (4.30-5.70) Hemoglobin 14.1 g/dL (13.0-17.5) Hematocrit 42.1 % (39.0-53.0) Mean Corpuscular Volume 101 fL (79-100) Mean Corpuscular Hemoglobin 34 pg (25-35) Mean Corpuscular Hemoglobin Concent 34 g/dL (31-37) Red Cell Distribution Width 12.9 % (11.5-14.5) Platelet Count 293 x10^3/uL (140-400) Neutrophils (%) (Auto) 69 % (31-73) Lymphocytes (%) (Auto) 19 % (24-48) Monocytes (%) (Auto) 11 % (0-9) Eosinophils (%) (Auto) 1 % (0-3) Basophils (%) (Auto) 1 % (0-3) Neutrophils # (Auto) 6.3 x10^3/uL (1.8-7.7) Lymphocytes # (Auto) 1.7 x10^3/uL (1.0-4.8) Monocytes # (Auto) 1.1 x10^3/uL (0.0-1.1) Eosinophils # (Auto) 0.1 x10^3/uL (0.0-0.7) Basophils # (Auto) 0.1 x10^3/uL (0.0-0.2) Prothrombin Time 13.3 SEC (11.7-14.0) Prothromb Time International Ratio 1.1 (0.8-1.1) Activated Partial Thromboplast Time 29 SEC (24-38) Sodium Level 136 mmol/L (136-145) Potassium Level 3.9 mmol/L (3.5-5.1) Chloride Level 100 mmol/L (98-107) Carbon Dioxide Level 30 mmol/L (21-32) Anion Gap 6 (6-14) Blood Urea Nitrogen 13 mg/dL (8-26) Creatinine 1.2 mg/dL (0.7-1.3) Estimated GFR (Cockcroft-Gault) 74.2 BUN/Creatinine Ratio 11 (6-20) Glucose Level 106 mg/dL (70-99) Calcium Level 9.1 mg/dL (8.5-10.1) Magnesium Level 2.1 mg/dL (1.8-2.4) Total Bilirubin 0.7 mg/dL (0.2-1.0) Aspartate Amino Transf (AST/SGOT) 16 U/L (15-37) Alanine Aminotransferase (ALT/SGPT) 31 U/L (16-63) Alkaline Phosphatase 90 U/L (46-116) Troponin I Quantitative 0.197 ng/mL (0.000-0.055) XA-Pfu-Z-Type Natriuretic Peptide 636 pg/mL (0-124) Total Protein 8.1 g/dL (6.4-8.2) Albumin 3.5 g/dL (3.4-5.0) Albumin/Globulin Ratio 0.8 (1.0-1.7) Lipase 98 U/L (73-393) VTE Prophylaxis Ordered VTE Prophylaxis Devices: No VTE Pharmacological Prophylaxi: Yes Assessment/Plan Assessment/Plan chest pain, angina, R/O ACS, small troponin bump, CV consult and heparin gtt and aspirin given, and trend troponin vent rhythm, abnormal, PVc's with ventricular trigemity every 15-45 seconds or so at times. Obese, BMI 31 Hx afib, Hx of ablation Asthma, stable Justifications for Admission Other Justification HIGINIO ALEMAN MD Nov 05, 2020 22:24
[2020-11-05] MEDS ORDERED: POTASSIUM CHLORIDE 20 MEQ TABLET.ER. PO ONE (22:30)
[2020-11-05] MEDS ORDERED: NON FORMULARY ITEM (Albuterol Sulfate (Ventolin Hfa Inhaler) 2 PUFF) IH SCH (22:30)
[2020-11-05] MEDS ORDERED: MORPHINE SULFATE 4 MG/ML VIAL. IV PRN (22:30)
[2020-11-05] MEDS: ATENOLOL 25 MG TABLET. PO SCH (22:30)
[2020-11-05] MEDS ORDERED: FLECAINIDE ACETATE 50 MG TABLET. PO PRN (22:30)
[2020-11-05] MEDS ORDERED: ALBUTEROL SULFATE 2.5 MG/3 ML NEBU. NEB PRN (22:45)
[2020-11-05] MEDS: hydrALAZINE 10 MG TABLET PO SCH (23:22)
[2020-11-05] MEDS: LISINOPRIL 20 MG TABLET PO SCH (23:23)
[2020-11-06] VITALS (15 sets, daily range): BP systolic 138–161; BP diastolic 80–95
[2020-11-06] MEDS: ZOLPIDEM 5 MG TABLET. PO PRN ×2 (00:24→21:01)
--- NOTE | 2020-11-06 01:10 | NUR ---
Dr. Quick notified regarding frequent PVC's, couplets, and 2 runs of vtach, 1 being and 8 beat and the other a nine beat. Received orders to start Amiodarone drip and draw a BMP and Mag level in the morning. Also instructed by MD to reschedule troponin for AM draw.
[2020-11-06] MEDS ORDERED: AMIODARONE 150 MG in IV DEXTROSE 5% 100ML 100 ML IV ONE ×2 (01:15→01:30)
[2020-11-06] MEDS ORDERED: AMIODARONE 450 MG in IV DEXTROSE 5% 250 ML IV PRN (01:30)
[2020-11-06 04:11] LABS: CALCIUM 8.5 mg/dL (8.5-10.1); CREATININE 1.1 mg/dL (0.7-1.3); GFR 82.1; POTASSIUM 4.4 mmol/L (3.5-5.1)
[2020-11-06 06:00] LABS: CHOLESTEROL/HDL RATIO 2.5
--- NOTE | 2020-11-06 06:28 | NUR ---
Outside [employer] Dr. Quick notified of elevation in troponin from 1.1 to 10.0. Pt is currently asymptomatic, resting, currently on heparin and amio gtt. Dr. Quick stated to continue POC, will be seen this morning at bedside. VSS, bed in low/locked position, will continue to monitor for status changes.
[2020-11-06] MEDS: BUDESONIDE 0.5 MG/2 ML NEBU. NEB SCH ×2 (08:34→20:12)
--- NOTE | 2020-11-06 08:38 | PDOC ---
PROGRESS NOTES Date of Service: DATE: 11/06/20 TIME: 08:37 Chief Complaint Chief Complaint VTE Prophylaxis Ordered VTE Prophylaxis Devices: No VTE Pharmacological Prophylaxi: Yes Assessment/Plan Assessment/Plan chest pain, angina, ACS, NSTEMI MORBID OBESITY PLAN CV consult and heparin gtt and aspirin given, trend troponin vent rhythm, abnormal, PVc's with ventricular trigemity Obese, BMI 31 Hx afib, Hx of ablation Asthma, stable Justifications for Admission Justifications for Admission Other Justification nstemi History of Present Illness History of Present Illness Identification/Chief Complaint Chief Complaint chest pain, palpitations Source Source: Chart review, Patient History of Present Illness History of Present Illness MR. Flores, is a 60-year-old male with a history of A. fib and hypertension who presents to the emergency department with chest pain and palpitations. He states his symptoms began last night at 2200 and include central chest discomfort that radiates to the neck and left arm, and the sensation of his heart skipping a beat. His symptoms have been constant at onset. He denies any aggravating or alleviating factors. He had an ablation 7 years ago for his A. fib and occasionally takes flecainide for breakthrough irregularities. Denies any nausea or vomiting, shortness of breath, dizziness, diaphoresis. He denies any significant cardiac history. He has a known stable AAA and his last echo was in September with no irregularities. Past Medical History Cardiovascular: AFIB, HTN, Other Pulmonary: Asthma Hepatobiliary: No pertinent hx Psych: No pertinent hx ENT: No pertinent hx Renal/: No pertinent hx Endocrine: No pertinent hx Dermatology: No pertinent hx Past Surgical History Past Surgical History: No pertinent history Family History Family History: No Significant Social History Smoke: No ALCOHOL: none Current Medications Current Medications Current Medications Aspirin (Kourtney Aspirin) 325 mg 1X ONCE PO Last administered on 11/05/20at 20:43; Start 11/05/20 at 20:00; Stop 11/05/20 at 20:01; Status DC Heparin Sodium (Porcine) (Heparin Sodium) 4,000 unit 1X ONCE IV Last administered on 11/05/20at 20:46; Start 11/05/20 at 20:30; Stop 11/05/20 at 20:38; Status DC Heparin Sodium/ Dextrose 250 ml @ 0 mls/hr CONT PRN IV PER PROTOCOL Last administered on 11/05/20at 20:47; Start 11/05/20 at 20:30 Ondansetron HCl (Zofran) 4 mg PRN Q8HRS PRN IV NAUSEA/VOMITING; Start 11/05/20 at 20:45; Stop 11/06/20 at 20:44 Fentanyl Citrate (Fentanyl 2ml Vial) 50 mcg Q2HR PRN IV PAIN; Start 11/05/20 at 20:45; Stop 11/06/20 at 20:44 Active Scripts Active Reported Vitamin C (Ascorbic Acid) 500 Mg Capsule.er 500 Mg PO DAILY Iron (Ferrous Sulfate) 325 Mg Tablet Unknown Dose PO DAILY Vitamin D3 (Cholecalciferol (Vitamin D3)) 1,250 Mcg Capsule Unknown Dose PO DAILY Klonopin (Clonazepam) 2 Mg Tablet 3 Mg PO DAILY Flecainide Acetate 100 Mg Tablet 1 Tab PO BID PRN Qvar Redihaler (Beclomethasone Dipropionate) 10.6 Gm Hfa.aeroba 2 Puff IH BID 30 Days Hydralazine Hcl 10 Mg Tablet 20 Mg PO BID Lisinopril 20 Mg Tablet 1 Tab PO BID Tenormin (Atenolol) 25 Mg Tablet 1 Tab PO BID 30 Days Multi-Day Vitamins (Multivitamin) 1 Each Tablet 1 Tab PO DAILY Ventolin Hfa Inhaler (Albuterol Sulfate) 18 Gm Hfa.aer.ad 2 Puff IH PRN Q4-6HRS Fish Oil 1,200 Mg Softgel ([place]-3 Fatty Acids/Fish Oil) 1 Each Capsule 1 Each PO BID Allergies Allergies: Coded Allergies: Sulfa (Sulfonamide Antibiotics) (Verified Allergy, Intermediate, Hives, 02/01/15) ROS General: YES: Fatigue, Malaise PSYCHOLOGICAL ROS: No: Anxiety, Behavioral Disorder, Concentration difficultie, Decreased libido, Depression, Disorientation, Hallucinations, Hostility, Irritablity, Memory difficulties, Mood Swings, Obsessive thoughts, Physical abuse, Sexual abuse, Sleep disturbances, Suicidal ideation, Other Eyes: No Blurry vision, No Decreased vision, No Double vision, No Dry eyes, No Excessive tearing, No Eye Pain, No Itchy Eyes, No Loss of vision, No Photophobia, No Scotomata, No Uses contacts, No Uses glasses, No Other HEENT: No: Heacaches, Visual Changes, Hearing change, Nasal congestion, Nasal discharge, Oral lesions, Sinus pain, Sore Throat, Epistaxis, Sneezing, Snoring, Tinnitus, Vertigo, Vocal changes, Other Respiratory: No: Cough, Hemoptysis, Orthopnea, Pleuritic Pain, Shortness of breath, SOB with excertion, Sputum Changes, Stridor, Tachypnea, Wheezing, Other Cardiovascular: yes Chest Pain, yes Palpitations Gastrointestinal: No Nausea, No Vomiting, No Abdominal Pain, No Diarrhea, No Constipation, No Melena, No Hematochezia, No Other Genitourinary: No Dysuria, No Frequency, No Incontinence, No Hematuria, No Retention, No Discharge, No Urgency, No Pain, No Flank Pain, No Other, No , No , No , No , No , No , No Musculoskeletal: No Gait Disturbance, No Joint Pain, No Joint Stiffness, No Joint Swelling, No Muscle Pain, No Muscular Weakness, No Pain In:, No Swelling In:, No Other Neurological: No Behavorial Changes, No Bowel/Bladder ControlChng, No Confusion, No Dizziness, No Gait Disturbance, No Headaches, No Impaired Coord/balance, No Memory Loss, No Numbness/Tingling, No Seizures, No Speech Problems, No Tremors, No Visual Changes, No Weakness, No Other Skin: No Dry Skin, No Eczema, No Hair Changes, No Lumps, No Mole Changes, No Mottling, No Nail Changes, No Pruritus, No Rash, No Skin Lesion Changes, No Other, No Acne Physical Exam Vitals Vitals Vital Signs Date Time Temp Pulse Resp B/P (MAP) Pulse Ox O2 Delivery O2 Flow Rate FiO2 11/06/20 03:09 97.9 56 16 138/83 (101) 95 Room Air 97.9 Physical Exam Physical Exam Physical Exam General: Alert, Oriented X3, Cooperative,NO distress HEENT: PERRLA, EOMI, Mucous membr. moist/pink Lungs: Clear to auscultation Heart: S1S2, RRR, no gallops, no murmurs Abdomen: Soft Rectal Exam: not examined Extremities: No clubbing, No cyanosis, No edema Skin: No rashes, No breakdown Neuro: Normal speech, Normal tone, Sensation intact Psych/Mental Status: Mental status NL, Mood NL General: Alert, Oriented X3, Cooperative, mild distress Heart: Regular rate, Normal S1 Lungs: Clear Abdomen: Normal bowel sounds, Soft, No tenderness, No hepatosplenomegaly Extremities: No clubbing, No cyanosis, No edema Skin: No rashes, No breakdown Labs LABS Left ventriculogram: Ejection fraction 55% Subtle diaphragmatic dyskinesis, otherwise normal wall motion. Coronary angiography: LM: Large caliber vessel with normal angiographic appearance LAD: Large caliber vessel with mild luminal irregularities. D1: Moderate caliber vessel with mild luminal irregularities. LCX: Large caliber non-dominant vessel with mild luminal irregularities OM1: Moderate caliber vessel with normal angiographic appearance RCA: Large caliber dominant vessel with mild luminal irregularities RPDA: Moderate caliber vessel with mild luminal irregularities. CLOSURE: At case completion the right radial sheath was removed and a Terumo radial band was applied with 11 mL of air. Hemostasis was achieved. COMPLICATIONS: No acute complications noted Conclusion 1. Normal left sided filling pressures. 2. Normal LV function. EF 55% 3. No significant angiographic evidence of coronary disease. Recommendations Aggressive Medical Therapy Electronically Approved : 11/06/2020 14:26:38 DICTATED AND SIGNED BY: MARIAM RIDLEY MD DATE: 11/06/20 1426 PROCEDURE: CHEST AP ONLY Single view chest dated 11/05/2020. Comparison made to 08/18/2020. Clinical data indication: Chest discomfort. FINDINGS: Single upright portable exam performed. Heart and mediastinal contours are stable. Lungs are clear. No consolidation or pleural effusion. No pneumothorax. IMPRESSION: No acute radiographic abnormality. Electronically signed by: Eric Galindo MD (11/05/2020 9:02 PM) [facility] [place] DICTATED and SIGNED BY: ERIC GALINDO MD DATE: 11/05/20 [id number] Laboratory Tests Test 11/05/20 19:46 11/05/20 22:35 11/06/20 03:44 11/06/20 03:45 White Blood Count 9.2 x10^3/uL (4.0-11.0) Red Blood Count 4.17 x10^6/uL (4.30-5.70) Hemoglobin 14.1 g/dL (13.0-17.5) Hematocrit 42.1 % (39.0-53.0) Mean Corpuscular Volume 101 fL (79-100) Mean Corpuscular Hemoglobin 34 pg (25-35) Mean Corpuscular Hemoglobin Concent 34 g/dL (31-37) Red Cell Distribution Width 12.9 % (11.5-14.5) Platelet Count 293 x10^3/uL (140-400) Neutrophils (%) (Auto) 69 % (31-73) Lymphocytes (%) (Auto) 19 % (24-48) Monocytes (%) (Auto) 11 % (0-9) Eosinophils (%) (Auto) 1 % (0-3) Basophils (%) (Auto) 1 % (0-3) Neutrophils # (Auto) 6.3 x10^3/uL (1.8-7.7) Lymphocytes # (Auto) 1.7 x10^3/uL (1.0-4.8) Monocytes # (Auto) 1.1 x10^3/uL (0.0-1.1) Eosinophils # (Auto) 0.1 x10^3/uL (0.0-0.7) Basophils # (Auto) 0.1 x10^3/uL (0.0-0.2) Prothrombin Time 13.3 SEC (11.7-14.0) Prothromb Time International Ratio 1.1 (0.8-1.1) Activated Partial Thromboplast Time 29 SEC (24-38) Sodium Level 136 mmol/L (136-145) 136 mmol/L (136-145) Potassium Level 3.9 mmol/L (3.5-5.1) 4.4 mmol/L (3.5-5.1) Chloride Level 100 mmol/L (98-107) 102 mmol/L (98-107) Carbon Dioxide Level 30 mmol/L (21-32) 29 mmol/L (21-32) Anion Gap 6 (6-14) 5 (6-14) Blood Urea Nitrogen 13 mg/dL (8-26) 10 mg/dL (8-26) Creatinine 1.2 mg/dL (0.7-1.3) 1.1 mg/dL (0.7-1.3) Estimated GFR (Cockcroft-Gault) 74.2 82.1 BUN/Creatinine Ratio 11 (6-20) Glucose Level 106 mg/dL (70-99) 120 mg/dL (70-99) Calcium Level 9.1 mg/dL (8.5-10.1) 8.5 mg/dL (8.5-10.1) Magnesium Level 2.1 mg/dL (1.8-2.4) 2.0 mg/dL (1.8-2.4) Total Bilirubin 0.7 mg/dL (0.2-1.0) Aspartate Amino Transf (AST/SGOT) 16 U/L (15-37) Alanine Aminotransferase (ALT/SGPT) 31 U/L (16-63) Alkaline Phosphatase 90 U/L (46-116) Troponin I Quantitative 0.197 ng/mL (0.000-0.055) 1.137 ng/mL (0.000-0.055) 10.018 ng/mL (0.000-0.055) DF-Xlu-S-Type Natriuretic Peptide 636 pg/mL (0-124) Total Protein 8.1 g/dL (6.4-8.2) Albumin 3.5 g/dL (3.4-5.0) Albumin/Globulin Ratio 0.8 (1.0-1.7) Lipase 98 U/L (73-393) Heparin Anti-Xa Act, Unfractionated 0.44 IU/mL (0.30-0.70) Triglycerides Level 62 mg/dL (0-150) Cholesterol Level 114 mg/dL (0-200) LDL Cholesterol, Calculated 57 mg/dL (0-100) VLDL Cholesterol, Calculated 12 mg/dL (0-40) Non-HDL Cholesterol Calculated 69 mg/dL (0-129) HDL Cholesterol 45 mg/dL (40-60) Cholesterol/HDL Ratio 2.5 Comment Review of Relevant I have reviewed the following items constance (where applicable) has been applied. Labs Laboratory Tests Test 11/05/20 19:46 11/05/20 22:35 11/06/20 03:44 11/06/20 03:45 White Blood Count 9.2 x10^3/uL (4.0-11.0) Red Blood Count 4.17 x10^6/uL (4.30-5.70) Hemoglobin 14.1 g/dL (13.0-17.5) Hematocrit 42.1 % (39.0-53.0) Mean Corpuscular Volume 101 fL (79-100) Mean Corpuscular Hemoglobin 34 pg (25-35) Mean Corpuscular Hemoglobin Concent 34 g/dL (31-37) Red Cell Distribution Width 12.9 % (11.5-14.5) Platelet Count 293 x10^3/uL (140-400) Neutrophils (%) (Auto) 69 % (31-73) Lymphocytes (%) (Auto) 19 % (24-48) Monocytes (%) (Auto) 11 % (0-9) Eosinophils (%) (Auto) 1 % (0-3) Basophils (%) (Auto) 1 % (0-3) Neutrophils # (Auto) 6.3 x10^3/uL (1.8-7.7) Lymphocytes # (Auto) 1.7 x10^3/uL (1.0-4.8) Monocytes # (Auto) 1.1 x10^3/uL (0.0-1.1) Eosinophils # (Auto) 0.1 x10^3/uL (0.0-0.7) Basophils # (Auto) 0.1 x10^3/uL (0.0-0.2) Prothrombin Time 13.3 SEC (11.7-14.0) Prothromb Time International Ratio 1.1 (0.8-1.1) Activated Partial Thromboplast Time 29 SEC (24-38) Sodium Level 136 mmol/L (136-145) 136 mmol/L (136-145) Potassium Level 3.9 mmol/L (3.5-5.1) 4.4 mmol/L (3.5-5.1) Chloride Level 100 mmol/L (98-107) 102 mmol/L (98-107) Carbon Dioxide Level 30 mmol/L (21-32) 29 mmol/L (21-32) Anion Gap 6 (6-14) 5 (6-14) Blood Urea Nitrogen 13 mg/dL (8-26) 10 mg/dL (8-26) Creatinine 1.2 mg/dL (0.7-1.3) 1.1 mg/dL (0.7-1.3) Estimated GFR (Cockcroft-Gault) 74.2 82.1 BUN/Creatinine Ratio 11 (6-20) Glucose Level 106 mg/dL (70-99) 120 mg/dL (70-99) Calcium Level 9.1 mg/dL (8.5-10.1) 8.5 mg/dL (8.5-10.1) Magnesium Level 2.1 mg/dL (1.8-2.4) 2.0 mg/dL (1.8-2.4) Total Bilirubin 0.7 mg/dL (0.2-1.0) Aspartate Amino Transf (AST/SGOT) 16 U/L (15-37) Alanine Aminotransferase (ALT/SGPT) 31 U/L (16-63) Alkaline Phosphatase 90 U/L (46-116) Troponin I Quantitative 0.197 ng/mL (0.000-0.055) 1.137 ng/mL (0.000-0.055) 10.018 ng/mL (0.000-0.055) DM-Lmk-R-Type Natriuretic Peptide 636 pg/mL (0-124) Total Protein 8.1 g/dL (6.4-8.2) Albumin 3.5 g/dL (3.4-5.0) Albumin/Globulin Ratio 0.8 (1.0-1.7) Lipase 98 U/L (73-393) Heparin Anti-Xa Act, Unfractionated 0.44 IU/mL (0.30-0.70) Triglycerides Level 62 mg/dL (0-150) Cholesterol Level 114 mg/dL (0-200) LDL Cholesterol, Calculated 57 mg/dL (0-100) VLDL Cholesterol, Calculated 12 mg/dL (0-40) Non-HDL Cholesterol Calculated 69 mg/dL (0-129) HDL Cholesterol 45 mg/dL (40-60) Cholesterol/HDL Ratio 2.5 Laboratory Tests Test 11/05/20 19:46 11/05/20 22:35 11/06/20 03:44 11/06/20 03:45 White Blood Count 9.2 x10^3/uL (4.0-11.0) Red Blood Count 4.17 x10^6/uL (4.30-5.70) Hemoglobin 14.1 g/dL (13.0-17.5) Hematocrit 42.1 % (39.0-53.0) Mean Corpuscular Volume 101 fL (79-100) Mean Corpuscular Hemoglobin 34 pg (25-35) Mean Corpuscular Hemoglobin Concent 34 g/dL (31-37) Red Cell Distribution Width 12.9 % (11.5-14.5) Platelet Count 293 x10^3/uL (140-400) Neutrophils (%) (Auto) 69 % (31-73) Lymphocytes (%) (Auto) 19 % (24-48) Monocytes (%) (Auto) 11 % (0-9) Eosinophils (%) (Auto) 1 % (0-3) Basophils (%) (Auto) 1 % (0-3) Neutrophils # (Auto) 6.3 x10^3/uL (1.8-7.7) Lymphocytes # (Auto) 1.7 x10^3/uL (1.0-4.8) Monocytes # (Auto) 1.1 x10^3/uL (0.0-1.1) Eosinophils # (Auto) 0.1 x10^3/uL (0.0-0.7) Basophils # (Auto) 0.1 x10^3/uL (0.0-0.2) Prothrombin Time 13.3 SEC (11.7-14.0) Prothromb Time International Ratio 1.1 (0.8-1.1) Activated Partial Thromboplast Time 29 SEC (24-38) Sodium Level 136 mmol/L (136-145) 136 mmol/L (136-145) Potassium Level 3.9 mmol/L (3.5-5.1) 4.4 mmol/L (3.5-5.1) Chloride Level 100 mmol/L (98-107) 102 mmol/L (98-107) Carbon Dioxide Level 30 mmol/L (21-32) 29 mmol/L (21-32) Anion Gap 6 (6-14) 5 (6-14) Blood Urea Nitrogen 13 mg/dL (8-26) 10 mg/dL (8-26) Creatinine 1.2 mg/dL (0.7-1.3) 1.1 mg/dL (0.7-1.3) Estimated GFR (Cockcroft-Gault) 74.2 82.1 BUN/Creatinine Ratio 11 (6-20) Glucose Level 106 mg/dL (70-99) 120 mg/dL (70-99) Calcium Level 9.1 mg/dL (8.5-10.1) 8.5 mg/dL (8.5-10.1) Magnesium Level 2.1 mg/dL (1.8-2.4) 2.0 mg/dL (1.8-2.4) Total Bilirubin 0.7 mg/dL (0.2-1.0) Aspartate Amino Transf (AST/SGOT) 16 U/L (15-37) Alanine Aminotransferase (ALT/SGPT) 31 U/L (16-63) Alkaline Phosphatase 90 U/L (46-116) Troponin I Quantitative 0.197 ng/mL (0.000-0.055) 1.137 ng/mL (0.000-0.055) 10.018 ng/mL (0.000-0.055) KE-Pai-W-Type Natriuretic Peptide 636 pg/mL (0-124) Total Protein 8.1 g/dL (6.4-8.2) Albumin 3.5 g/dL (3.4-5.0) Albumin/Globulin Ratio 0.8 (1.0-1.7) Lipase 98 U/L (73-393) Heparin Anti-Xa Act, Unfractionated 0.44 IU/mL (0.30-0.70) Triglycerides Level 62 mg/dL (0-150) Cholesterol Level 114 mg/dL (0-200) LDL Cholesterol, Calculated 57 mg/dL (0-100) VLDL Cholesterol, Calculated 12 mg/dL (0-40) Non-HDL Cholesterol Calculated 69 mg/dL (0-129) HDL Cholesterol 45 mg/dL (40-60) Cholesterol/HDL Ratio 2.5 Medications Current Medications Aspirin (Kourtney Aspirin) 325 mg 1X ONCE PO Last administered on 11/05/20at 20:43; Start 11/05/20 at 20:00; Stop 11/05/20 at 20:01; Status DC Heparin Sodium (Porcine) (Heparin Sodium) 4,000 unit 1X ONCE IV Last administered on 11/05/20at 20:46; Start 11/05/20 at 20:30; Stop 11/05/20 at 20:38; Status DC Heparin Sodium/ Dextrose 250 ml @ 0 mls/hr CONT PRN IV PER PROTOCOL Last administered on 11/05/20at 20:47; Start 11/05/20 at 20:30 Ondansetron HCl (Zofran) 4 mg PRN Q8HRS PRN IV NAUSEA/VOMITING; Start 11/05/20 at 20:45; Stop 11/06/20 at 20:44 Fentanyl Citrate (Fentanyl 2ml Vial) 50 mcg Q2HR PRN IV PAIN; Start 11/05/20 at 20:45; Stop 11/06/20 at 20:44 Atenolol (Tenormin) 25 mg BID PO ; Start 11/05/20 at 22:30 Hydralazine HCl (Apresoline) 20 mg BID PO Last administered on 11/05/20at 23:22; Start 11/05/20 at 22:30 Lisinopril (Prinivil) 20 mg BID PO Last administered on 11/05/20at 23:23; Start 11/05/20 at 22:30 Non-Formulary Medication (Albuterol Sulfate (Ventolin Hfa Inhaler)) 2 puff PRN Q4-6HRS IH ; Start 11/05/20 at 22:30; Status UNV Ascorbic Acid (Vitamin C) 500 mg DAILY PO ; Start 11/06/20 at 09:00 Non-Formulary Medication (Beclomethasone Dipropionate (Qvar Redihaler)) 2 puff BID IH ; Start 11/06/20 at 09:00; Status UNV Flecainide Acetate (Tambocor) 100 mg PRN BID PRN PO afib; Start 11/05/20 at 22:30 Multivitamins (Thera M Plus) 1 tab DAILY PO ; Start 11/06/20 at 09:00 Morphine Sulfate (Morphine Sulfate) 4 mg PRN Q2HR PRN IV PAIN Last administered on 11/06/20at 01:02; Start 11/05/20 at 22:30 Potassium Chloride (Klor-Con) 20 meq 1X ONCE PO Last administered on 11/05/20at 23:24; Start 11/05/20 at 22:30; Stop 11/05/20 at 22:31; Status DC Albuterol Sulfate (Ventolin Neb Soln) 2.5 mg PRN Q4HRS PRN NEB SHORTNESS OF BREATH; Start 11/05/20 at 22:45 Budesonide (Pulmicort) 0.5 mg RTBID NEB Last administered on 11/06/20at 08:34; Start 11/06/20 at 08:00 Zolpidem Tartrate (Ambien) 5 mg PRN QHS PRN PO INSOMNIA MR 5MG X1 Last administered on 11/06/20at 00:24; Start 11/06/20 at 00:00 Amiodarone HCl 150 mg/Dextrose 103 ml @ 618 mls/hr 1X ONCE IV ; Start 11/06/20 at 01:15; Stop 11/06/20 at 01:24; Status UNV Amiodarone HCl 150 mg/Dextrose 103 ml @ 600 mls/hr 1X ONCE IV Last administered on 11/06/20at 01:32; Start 11/06/20 at 01:30; Stop 11/06/20 at 01:40; Status DC Amiodarone HCl 450 mg/Dextrose 259 ml @ 0 mls/hr CONT PRN IV SEE I/O RECORD Last administered on 11/06/20at 01:33; Start 11/06/20 at 01:30; Stop 11/07/20 at 01:29 Active Scripts Active Reported Vitamin C (Ascorbic Acid) 500 Mg Capsule.er 500 Mg PO DAILY Iron (Ferrous Sulfate) 325 Mg Tablet Unknown Dose PO DAILY Vitamin D3 (Cholecalciferol (Vitamin D3)) 1,250 Mcg Capsule Unknown Dose PO DAILY Klonopin (Clonazepam) 2 Mg Tablet 3 Mg PO DAILY Flecainide Acetate 100 Mg Tablet 1 Tab PO BID PRN Qvar Redihaler (Beclomethasone Dipropionate) 10.6 Gm Hfa.aeroba 2 Puff IH BID 30 Days Hydralazine Hcl 10 Mg Tablet 20 Mg PO BID Lisinopril 20 Mg Tablet 1 Tab PO BID Tenormin (Atenolol) 25 Mg Tablet 1 Tab PO BID 30 Days Multi-Day Vitamins (Multivitamin) 1 Each Tablet 1 Tab PO DAILY Ventolin Hfa Inhaler (Albuterol Sulfate) 18 Gm Hfa.aer.ad 2 Puff IH PRN Q4-6HRS Fish Oil 1,200 Mg Softgel ([place]-3 Fatty Acids/Fish Oil) 1 Each Capsule 1 Each PO BID Vitals/I & O Vital Sign - Last 24 Hours 11/05/20 11/05/20 11/05/20 11/05/20 19:45 20:08 20:28 20:48 Temp 98.6 98.6 Pulse 55 65 53 55 Resp 14 B/P (MAP) 174/92 (119) 166/91 (116) 142/96 (111) 157/91 (113) Pulse Ox 100 99 99 100 O2 Delivery Room Air Room Air Room Air Room Air 11/05/20 11/05/20 11/05/20 11/05/20 21:08 21:28 22:00 22:15 Temp 98.0 98.0 Pulse 54 51 44 Resp 16 B/P (MAP) 150/96 (114) 152/91 (111) 148/93 (111) Pulse Ox 98 100 97 O2 Delivery Room Air Room Air Room Air Room Air 11/05/20 11/05/20 11/05/20 11/06/20 22:30 23:22 23:23 01:02 Pulse 53 53 53 Resp 20 B/P (MAP) 156/89 156/89 O2 Delivery Room Air 11/06/20 11/06/20 11/06/20 01:32 01:35 03:09 Temp 97.9 97.9 Pulse 53 56 Resp 20 16 B/P (MAP) 156/89 138/83 (101) Pulse Ox 95 O2 Delivery Room Air Room Air Intake and Output 11/05/20 11/05/20 11/06/20 15:00 23:00 07:00 Intake Total 0 ml Output Total 800 ml Balance -800 ml Justicifation of Admission Dx: Justifications for Admission: Justification of Admission Dx: Yes MD: Acute STEMI ANNIE TAO MD Nov 06, 2020 08:38
[2020-11-06] MEDS: ASCORBIC ACID 500 MG TABLET PO SCH (08:45)
[2020-11-06] MEDS: MULTIVITAMIN with MINERAL TABLET. PO SCH (08:45)
[2020-11-06] MEDS: LISINOPRIL 20 MG TABLET PO SCH ×2 (08:46→20:51)
[2020-11-06] MEDS: hydrALAZINE 10 MG TABLET PO SCH ×2 (08:46→20:51)
[2020-11-06] MEDS: ATENOLOL 25 MG TABLET. PO SCH ×2 (08:47→21:00)
[2020-11-06] MEDS ORDERED: BECLOMETHASONE DIPROPIONATE IH SCH (09:00)
--- NOTE | 2020-11-06 10:10 | EKG ---
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
--- NOTE | 2020-11-06 10:27 | PDOC2 ---
VIN WARD LICENSED NURSING ASSISTANT 11/06/20 1026: CARDIAC CONSULT DATE OF CONSULT Date of Consult DATE: 11/06/20 TIME: 10:19 REASON FOR CONSULT Reason for Consult: NSTEMI REFERRING PHYSICIAN Referring Physician: Dr. Shultz SOURCE Source: Chart review, Patient HISTORY OF PRESENT ILLNESS HISTORY OF PRESENT ILLNESS This is a 60 yo male who presented secondary to chest pain, palpitations. Troponin noted to be elevated, which prompted this consult. Patient has a history of AFIB s/p ablation therapy 7 years ago. On Friday evening, began having palpitations. Took flecainide, which generally resolves symptoms. He continued to have palpitations. On Friday, HR was near baseline, but reports having frequent skipped beats "PVC's". Was also having some aching, throbbing in his central chest, which has been intermittent for the last 3-4 months. Is worse with deep breathing. Occasionally radiates down his left arm. Is worse with applying pressure to the left chest. Has cervical stenosis and pain has improved with recent steroid injection. Has also been taking Ibuprofen for the pain. Given combination of pain and PVC's, patient decided to come into the ED for further evaluation and treatment. He denies any associated shortness of breath, dizziness, diaphoresis, or nausea/vomiting. PAST MEDICAL HISTORY Cardiovascular: AFIB, HTN, Other (AAA) Pulmonary: Asthma, Other (MAXIMO) Psych: Anxiety Musculoskeletal: Osteoarthritis PAST SURGICAL HISTORY Past Surgical History: Other (AFIB ablation ) FAMILY HISTORY Family History: Diabetes, Hypertension SOCIAL HISTORY Smoke: No ALCOHOL: none Drugs: None Lives: with Family CURRENT MEDICATIONS CURRENT MEDICATIONS Current Medications Medications (Trade) Dose Ordered Sig/Svetlana Route PRN Reason Start Time Stop Time Status Last Admin Dose Admin Aspirin (Kourtney Aspirin) 325 mg 1X ONCE PO 11/05/20 20:00 11/05/20 20:01 DC 11/05/20 20:43 Heparin Sodium (Porcine) (Heparin Sodium) 4,000 unit 1X ONCE IV 11/05/20 20:30 11/05/20 20:38 DC 11/05/20 20:46 Heparin Sodium/ Dextrose 250 ml @ 0 mls/hr CONT PRN IV PER PROTOCOL 11/05/20 20:30 11/05/20 20:47 Hydralazine HCl (Apresoline) 20 mg BID PO 11/05/20 22:30 11/06/20 08:46 Lisinopril (Prinivil) 20 mg BID PO 11/05/20 22:30 11/06/20 08:46 Ascorbic Acid (Vitamin C) 500 mg DAILY PO 11/06/20 09:00 11/06/20 08:45 Multivitamins (Thera M Plus) 1 tab DAILY PO 11/06/20 09:00 11/06/20 08:45 Morphine Sulfate (Morphine Sulfate) 4 mg PRN Q2HR PRN IV PAIN 11/05/20 22:30 11/06/20 01:02 Potassium Chloride (Klor-Con) 20 meq 1X ONCE PO 11/05/20 22:30 11/05/20 22:31 DC 11/05/20 23:24 Budesonide (Pulmicort) 0.5 mg RTBID NEB 11/06/20 08:00 11/06/20 08:34 Zolpidem Tartrate (Ambien) 5 mg PRN QHS PRN PO INSOMNIA MR 5MG X1 11/06/20 00:00 11/06/20 00:24 Amiodarone HCl 150 mg/Dextrose 103 ml @ 600 mls/hr 1X ONCE IV 11/06/20 01:30 11/06/20 01:40 DC 11/06/20 01:32 Amiodarone HCl 450 mg/Dextrose 259 ml @ 0 mls/hr CONT PRN IV SEE I/O RECORD 11/06/20 01:30 11/07/20 01:29 11/06/20 01:33 ALLERGIES ALLERGIES: Coded Allergies: Sulfa (Sulfonamide Antibiotics) (Verified Allergy, Intermediate, Hives, 02/01/15) ROS Review of System 14 point ROS conducted with pertinent positives noted above in HPI PHYSICAL EXAM General: Alert, Oriented X3, Cooperative, No acute distress HEENT: Atraumatic, Mucous membr. moist/pink Lungs: Clear to auscultation, Other (left chest tenderness upon palpitation) Heart: Regular rate Abdomen: Soft, No tenderness Extremities: No edema, Normal pulses Skin: No significant lesion Neuro: Normal speech, Sensation intact Psych/Mental Status: Mental status NL, Mood NL MUSCULOSKELETAL: Osteoarthritic changes both hands VITALS/I&O VITALS/I&O: Vital Signs Date Time Temp Pulse Resp B/P (MAP) Pulse Ox O2 Delivery O2 Flow Rate FiO2 11/06/20 08:47 54 143/87 11/06/20 08:34 99 Room Air 11/06/20 07:00 97.6 16 97.6 I & O 11/05/20 11/05/20 11/06/20 15:00 23:00 07:00 Intake Total 0 ml Output Total 800 ml Balance -800 ml LABS Lab: Laboratory Tests Test 11/05/20 19:46 11/05/20 22:35 11/06/20 03:44 11/06/20 03:45 White Blood Count 9.2 x10^3/uL (4.0-11.0) Red Blood Count 4.17 x10^6/uL (4.30-5.70) L Hemoglobin 14.1 g/dL (13.0-17.5) Hematocrit 42.1 % (39.0-53.0) Mean Corpuscular Volume 101 fL (79-100) H Mean Corpuscular Hemoglobin 34 pg (25-35) Mean Corpuscular Hemoglobin Concent 34 g/dL (31-37) Red Cell Distribution Width 12.9 % (11.5-14.5) Platelet Count 293 x10^3/uL (140-400) Neutrophils (%) (Auto) 69 % (31-73) Lymphocytes (%) (Auto) 19 % (24-48) L Monocytes (%) (Auto) 11 % (0-9) H Eosinophils (%) (Auto) 1 % (0-3) Basophils (%) (Auto) 1 % (0-3) Neutrophils # (Auto) 6.3 x10^3/uL (1.8-7.7) Lymphocytes # (Auto) 1.7 x10^3/uL (1.0-4.8) Monocytes # (Auto) 1.1 x10^3/uL (0.0-1.1) Eosinophils # (Auto) 0.1 x10^3/uL (0.0-0.7) Basophils # (Auto) 0.1 x10^3/uL (0.0-0.2) Prothrombin Time 13.3 SEC (11.7-14.0) Prothrombin Time INR 1.1 (0.8-1.1) Activated Partial Thromboplast Time 29 SEC (24-38) Sodium Level 136 mmol/L (136-145) 136 mmol/L (136-145) Potassium Level 3.9 mmol/L (3.5-5.1) 4.4 mmol/L (3.5-5.1) Chloride Level 100 mmol/L (98-107) 102 mmol/L (98-107) Carbon Dioxide Level 30 mmol/L (21-32) 29 mmol/L (21-32) Anion Gap 6 (6-14) 5 (6-14) L Blood Urea Nitrogen 13 mg/dL (8-26) 10 mg/dL (8-26) Creatinine 1.2 mg/dL (0.7-1.3) 1.1 mg/dL (0.7-1.3) Estimated GFR (Cockcroft-Gault) 74.2 82.1 BUN/Creatinine Ratio 11 (6-20) Glucose Level 106 mg/dL (70-99) H 120 mg/dL (70-99) H Calcium Level 9.1 mg/dL (8.5-10.1) 8.5 mg/dL (8.5-10.1) Magnesium Level 2.1 mg/dL (1.8-2.4) 2.0 mg/dL (1.8-2.4) Total Bilirubin 0.7 mg/dL (0.2-1.0) Aspartate Amino Transferase (AST) 16 U/L (15-37) Alanine Aminotransferase (ALT) 31 U/L (16-63) Alkaline Phosphatase 90 U/L (46-116) Troponin I Quantitative 0.197 ng/mL (0.000-0.055) 1.137 ng/mL (0.000-0.055) 10.018 ng/mL (0.000-0.055) ZX-Xlu-W-Type Natriuretic Peptide 636 pg/mL (0-124) H Total Protein 8.1 g/dL (6.4-8.2) Albumin 3.5 g/dL (3.4-5.0) Albumin/Globulin Ratio 0.8 (1.0-1.7) L Lipase 98 U/L (73-393) Heparin Anti-Xa Act, Unfractionated 0.44 IU/mL (0.30-0.70) Triglycerides Level 62 mg/dL (0-150) Cholesterol Level 114 mg/dL (0-200) LDL Cholesterol, Calculated 57 mg/dL (0-100) VLDL Cholesterol, Calculated 12 mg/dL (0-40) Non-HDL Cholesterol Calculated 69 mg/dL (0-129) HDL Cholesterol 45 mg/dL (40-60) Cholesterol/HDL Ratio 2.5 Laboratory Tests 11/05/20 19:46 Laboratory Tests 11/05/20 19:46 11/06/20 03:44 ECHOCARDIOGRAM ECHOCARDIOGRAM <Conclusion> The left ventricle is normal size. The left ventricular systolic function is normal and the ejection fraction is within normal range. Estimated ejection fraction 60-65%. There is borderline concentric left ventricular hypertrophy. Doppler and Color Flow revealed mild aortic regurgitation. There is no significant aortic valvular stenosis. Doppler and Color-flow revealed mild mitral regurgitation. Doppler and Color Flow revealed trace tricuspid regurgitation. Estimated PAP 22 mmHg. The ascending aorta is mildly dilated. DATE: 09/18/20 ASSESSMENT/PLAN ASSESSMENT/PLAN 1. Chest pain, atypical features 2. NSTEMI; trop highest 10. on heparin 3. Palpitations with h/o PAFIB s/p previous ablation. EKG upon arrival shows SR with PVC 4. Arrhythmias; having frequent PVC's and short burst of NSVT. Amiodarone was initiated 5. Accelerated hypertension; now controlled 6. MAXIMO with CPAP Recommendations Continue heparin Add ASA Discontinue Amiodarone. Will arrange outpatient event monitor to assess AFIB burden, guide therapy TSH, Mg Limited echo Pain somewhat atypical, but given NSTEMI with troponin level of 10, recommend further ischemic evaluation with [facility]. R/b/a discussed with patient and he is agreeable to proceed. MARIAM RIDLEY MD 11/06/20 1724: CARDIAC CONSULT ASSESSMENT/PLAN ASSESSMENT/PLAN Patient seen and examined. Agree with above nurse practitioner note. Cardiac catheterization did not reveal any significant obstructive disease. Suspect myocarditis or arrhythmia related type II non-STEMI. Continue risk factor modification. Outpatient evaluation as noted above. Could consider outpatient MRI. VIN WARD APRN Nov 06, 2020 10:26 MARIAM RIDLEY MD Nov 06, 2020 17:24
[2020-11-06] MEDS: ASPIRIN ENTERIC COATED 81 MG TABLET.DR. PO SCH (10:35)
--- NOTE | 2020-11-06 11:24 | EKG ---
[facility] [address] [place] [address] Test Date: 2020-11-06 Test Time: 09:46:25 Pat Name: SERGEI NEWBY Department: Room: 204 1 Gender: M [employer]: RON : 1960 Requested By: ESTHER JOYCE Order Number: [id number] Reading MD: Measurements Intervals [place] Rate: 54 P: 24 LA: 212 QRS: -23 QRSD: 106 T: 14 QT: 442 QTc: 421 Interpretive Statements SINUS RHYTHM LEFTWARD AXIS NO SPECIFIC ECG ABNORMALITIES RI6.02 Compared to ECG 11/05/2020 19:47:21 No significant changes
[2020-11-06] MEDS ORDERED: LIDOCAINE 1% PF 2 ML VIAL. ONE (11:44)
[2020-11-06] MEDS ORDERED: IOHEXOL 300 MG/ML 100ML VIAL. ONE (11:44)
[2020-11-06] MEDS ORDERED: fentaNYL PF VIAL 100 MCG/2 ML VIAL ONE (12:01)
[2020-11-06] MEDS ORDERED: MIDAZOLAM HCL/PF 2 MG/2 ML VIAL. ONE (12:02)
[2020-11-06] MEDS ORDERED: NITROGLYCERIN 200 MCG/2 ML SYRINGE FOR CATH/VASC LAB. ONE (12:02)
[2020-11-06] MEDS ORDERED: HEPARIN for IV BOLUS 10,000 UNIT/10 ML VIAL. ONE (12:02)
[2020-11-06] MEDS ORDERED: VERAPAMIL 5 MG/2 ML VIAL. ONE (12:02)
[2020-11-06] MEDS ORDERED: LIDOCAINE 1% PF 2 ML VIAL. INJ ONE (12:45)
[2020-11-06] MEDS ORDERED: NITROGLYCERIN 200 MCG/2 ML SYRINGE FOR CATH/VASC LAB. IART ONE (12:45)
[2020-11-06] MEDS ORDERED: fentaNYL PF VIAL 100 MCG/2 ML VIAL IV ONE (12:45)
[2020-11-06] MEDS ORDERED: VERAPAMIL 5 MG/2 ML VIAL. IART ONE (12:45)
[2020-11-06] MEDS ORDERED: MIDAZOLAM HCL/PF 2 MG/2 ML VIAL. IV ONE (12:45)
[2020-11-06] MEDS ORDERED: HEPARIN for IV BOLUS 10,000 UNIT/10 ML VIAL. IART ONE (12:45)
[2020-11-06] MEDS ORDERED: IOHEXOL 300 MG/ML 100ML VIAL. IART ONE (12:45)
--- NOTE | 2020-11-06 14:16 | NUR ---
SS following for discharge planning. SS reviewed pt chart and discussed with pt RN. Pt is from home and is currently on room air. Pt had heart cath today with no intervention. Probable discharge to home tomorrow. SS will continue to follow for discharge planning.
--- NOTE | 2020-11-06 14:26 | CARD ---
MR#: [id number] Date of Study: 11/06/2020 Ordering Physician: MARIAM FARRIS, Referring Physician: MARIAM FARRIS, Tech: RT Lucas (R) APPROVED REPORT Technologist: Dale Pitts RT (R) Nurse: Yolanda Zimmerman R.N. Procedure(s) performed: FL TIME: 3.6 MINS DOSE: 109 GYCM2 CONTRAST: 140 ML MODERATE SEDATION: 35 MINS LHC, Coronary angiography, Left ventriculography HISTORY : The patient is a 60 year-old male with a history of . INDICATION The indication(s) include : non-STEMI . [facility] Clinical Frailty Scale [facility] Clinical Frailty Scale: Managing Well Heart Failure Heart Failure: No PROCEDURE NARRATIVE Clinical information: Pleasant 60-year-old man coming into the hospital with atypical chest pain, arrhythmia and an elevate d troponin of 10. He was taken to the catheterization laboratory. Informed consent: Written informed consent was obtained from the patient after adequate discussion of the risks and jenny efits of the procedure. Procedure details: ACCESS: The right wrist was prepped and draped in usual sterile fashion. Under 1% lidocaine local anesthesia a 6 Vietnamese Terumo sheath was placed in the right radial artery via the Seldinger technique. DIAGNOSTIC ANGIOGRAPHY: Right and left coronary arteries were engaged with a 6 Vietnamese TIG catheter. Diagnostic angiography i n multiple views were obtained. Next, a 6 Vietnamese pigtail catheter was placed in the left ventricle a nd a LVEDP was measured. A pullback was performed after left ventriculography. All catheters were e xchanged over J-tip guidewire. FINDINGS: ======= Aorta: 110/80 LVEDP: 15 mmHg Left ventriculogram: Ejection fraction 55% Subtle diaphragmatic dyskinesis, otherwise normal wall motion. Coronary angiography: LM: Large caliber vessel with normal angiographic appearance LAD: Large caliber vessel with mild luminal irregularities. D1: Moderate caliber vessel with mild luminal irregularities. LCX: Large caliber non-dominant vessel with mild luminal irregularities OM1: Moderate caliber vessel with normal angiographic appearance RCA: Large caliber dominant vessel with mild luminal irregularities RPDA: Moderate caliber vessel with mild luminal irregularities. CLOSURE: At case completion the right radial sheath was removed and a Terumo radial band was applied with 11 m L of air. Hemostasis was achieved. COMPLICATIONS: No acute complications noted Conclusion 1. Normal left sided filling pressures. 2. Normal LV function. EF 55% 3. No significant angiographic evidence of coronary disease. Recommendations Aggressive Medical Therapy Signed by : Mariam Farris, Electronically Approved : 11/06/2020 14:25:29
--- NOTE | 2020-11-06 17:25 | PDOC ---
MODERATE SEDATION ASSESSMENT RISKS/ALTERNATIVES Risks/Alternatives Risks and alternatives of this type of sedation and procedure discussed with: RISK/ALTERNATIVES: Patient H & P ON CHART H & P H & P on chart and reviewed for co-morbid conditions and appropriate labs. H&P ON CHART: Yes STATUS PREG STATUS ASSESSED: N/A MEDS/ALLERGIES REVIEWED Meds/Allergies Reviewed Medications and Allergies including time and route of recently administered narcotics and sedatives. MEDS/ALLERGIES REVIEWED: Yes ASA RATING ASA RATING: II AIRWAY ASSESSMENT Airway Assessment Airway patency, oral function limitations, presence of caps, crowns, dentures, partials, and ability to extend neck assessed. AIRWAY ASSESSMENT: Yes MALLAMPATI SCORE MALLAMPATI SCORE: II PRE-SEDATION ASSESSMENT PRE-SEDATION ASSESSMENT: Yes (late entry) MARIAM RIDLEY MD Nov 06, 2020 17:25
[2020-11-07 03:13] VITALS: BP 154/78
[2020-11-07 07:00] VITALS: BP 140/81
[2020-11-07] MEDS: BUDESONIDE 0.5 MG/2 ML NEBU. NEB SCH (07:23)
[2020-11-07] MEDS: ASCORBIC ACID 500 MG TABLET PO SCH (08:07)
[2020-11-07] MEDS: MULTIVITAMIN with MINERAL TABLET. PO SCH (08:07)
[2020-11-07] MEDS: ASPIRIN ENTERIC COATED 81 MG TABLET.DR. PO SCH (08:08)
[2020-11-07] MEDS: hydrALAZINE 10 MG TABLET PO SCH (08:08)
[2020-11-07] MEDS: LISINOPRIL 20 MG TABLET PO SCH (08:09)
[2020-11-07] MEDS: ATENOLOL 25 MG TABLET. PO SCH (08:11)
--- NOTE | 2020-11-07 08:24 | PDOC ---
PROGRESS NOTES Date of Service: DATE: 11/07/20 TIME: 08:24 Chief Complaint Chief Complaint VTE Prophylaxis Ordered VTE Prophylaxis Devices: No VTE Pharmacological Prophylaxi: Yes Assessment/Plan Assessment/Plan chest pain, angina, ACS, NSTEMI MORBID OBESITY PLAN CV consult and heparin gtt and aspirin given, trend troponin vent rhythm, abnormal, PVc's with ventricular trigemity Obese, BMI 31 Hx afib, Hx of ablation Asthma, stable 2-23 REMAINS ON HEPARIN DRIP Justifications for Admission Justifications for Admission Other Justification nstemi History of Present Illness History of Present Illness Identification/Chief Complaint Chief Complaint chest pain, palpitations Source Source: Chart review, Patient History of Present Illness History of Present Illness MR. Flores, is a 60-year-old male with a history of A. fib and hypertension who presents to the emergency department with chest pain and palpitations. He states his symptoms began last night at 2200 and include central chest discomfort that radiates to the neck and left arm, and the sensation of his heart skipping a beat. His symptoms have been constant at onset. He denies any aggravating or alleviating factors. He had an ablation 7 years ago for his A. fib and occasionally takes flecainide for breakthrough irregularities. Denies any nausea or vomiting, shortness of breath, dizziness, diaphoresis. He denies any significant cardiac history. He has a known stable AAA and his last echo was in September with no irregularities. Past Medical History Cardiovascular: AFIB, HTN, Other Pulmonary: Asthma Hepatobiliary: No pertinent hx Psych: No pertinent hx ENT: No pertinent hx Renal/: No pertinent hx Endocrine: No pertinent hx Dermatology: No pertinent hx Past Surgical History Past Surgical History: No pertinent history Family History Family History: No Significant Social History Smoke: No ALCOHOL: none Current Medications Current Medications Current Medications Aspirin (Kourtney Aspirin) 325 mg 1X ONCE PO Last administered on 11/05/20at 20:43; Start 11/05/20 at 20:00; Stop 11/05/20 at 20:01; Status DC Heparin Sodium (Porcine) (Heparin Sodium) 4,000 unit 1X ONCE IV Last administered on 11/05/20at 20:46; Start 11/05/20 at 20:30; Stop 11/05/20 at 20:38; Status DC Heparin Sodium/ Dextrose 250 ml @ 0 mls/hr CONT PRN IV PER PROTOCOL Last administered on 11/05/20at 20:47; Start 11/05/20 at 20:30 Ondansetron HCl (Zofran) 4 mg PRN Q8HRS PRN IV NAUSEA/VOMITING; Start 11/05/20 at 20:45; Stop 11/06/20 at 20:44 Fentanyl Citrate (Fentanyl 2ml Vial) 50 mcg Q2HR PRN IV PAIN; Start 11/05/20 at 20:45; Stop 11/06/20 at 20:44 Active Scripts Active Reported Vitamin C (Ascorbic Acid) 500 Mg Capsule.er 500 Mg PO DAILY Iron (Ferrous Sulfate) 325 Mg Tablet Unknown Dose PO DAILY Vitamin D3 (Cholecalciferol (Vitamin D3)) 1,250 Mcg Capsule Unknown Dose PO DAILY Klonopin (Clonazepam) 2 Mg Tablet 3 Mg PO DAILY Flecainide Acetate 100 Mg Tablet 1 Tab PO BID PRN Qvar Redihaler (Beclomethasone Dipropionate) 10.6 Gm Hfa.aeroba 2 Puff IH BID 30 Days Hydralazine Hcl 10 Mg Tablet 20 Mg PO BID Lisinopril 20 Mg Tablet 1 Tab PO BID Tenormin (Atenolol) 25 Mg Tablet 1 Tab PO BID 30 Days Multi-Day Vitamins (Multivitamin) 1 Each Tablet 1 Tab PO DAILY Ventolin Hfa Inhaler (Albuterol Sulfate) 18 Gm Hfa.aer.ad 2 Puff IH PRN Q4-6HRS Fish Oil 1,200 Mg Softgel (Bethany-3 Fatty Acids/Fish Oil) 1 Each Capsule 1 Each PO BID Allergies Allergies: Coded Allergies: Sulfa (Sulfonamide Antibiotics) (Verified Allergy, Intermediate, Hives, 02/01/15) ROS General: YES: Fatigue, Malaise PSYCHOLOGICAL ROS: No: Anxiety, Behavioral Disorder, Concentration difficultie, Decreased libido, Depression, Disorientation, Hallucinations, Hostility, Irritablity, Memory difficulties, Mood Swings, Obsessive thoughts, Physical abuse, Sexual abuse, Sleep disturbances, Suicidal ideation, Other Eyes: No Blurry vision, No Decreased vision, No Double vision, No Dry eyes, No Excessive tearing, No Eye Pain, No Itchy Eyes, No Loss of vision, No Photophobia, No Scotomata, No Uses contacts, No Uses glasses, No Other HEENT: No: Heacaches, Visual Changes, Hearing change, Nasal congestion, Nasal discharge, Oral lesions, Sinus pain, Sore Throat, Epistaxis, Sneezing, Snoring, Tinnitus, Vertigo, Vocal changes, Other Respiratory: No: Cough, Hemoptysis, Orthopnea, Pleuritic Pain, Shortness of breath, SOB with excertion, Sputum Changes, Stridor, Tachypnea, Wheezing, Other Cardiovascular: yes Chest Pain, yes Palpitations Gastrointestinal: No Nausea, No Vomiting, No Abdominal Pain, No Diarrhea, No Constipation, No Melena, No Hematochezia, No Other Genitourinary: No Dysuria, No Frequency, No Incontinence, No Hematuria, No Retention, No Discharge, No Urgency, No Pain, No Flank Pain, No Other, No , No , No , No , No , No , No Musculoskeletal: No Gait Disturbance, No Joint Pain, No Joint Stiffness, No Joint Swelling, No Muscle Pain, No Muscular Weakness, No Pain In:, No Swelling In:, No Other Neurological: No Behavorial Changes, No Bowel/Bladder ControlChng, No Confusion, No Dizziness, No Gait Disturbance, No Headaches, No Impaired Coord/balance, No Memory Loss, No Numbness/Tingling, No Seizures, No Speech Problems, No Tremors, No Visual Changes, No Weakness, No Other Skin: No Dry Skin, No Eczema, No Hair Changes, No Lumps, No Mole Changes, No Mottling, No Nail Changes, No Pruritus, No Rash, No Skin Lesion Changes, No Other, No Acne Physical Exam Vitals Vitals Vital Signs Date Time Temp Pulse Resp B/P (MAP) Pulse Ox O2 Delivery O2 Flow Rate FiO2 11/07/20 08:11 65 140/81 11/07/20 03:13 98.0 18 100 Room Air 98.0 11/06/20 12:53 2.0 Physical Exam Physical Exam Physical Exam General: Alert, Oriented X3, Cooperative,NO distress HEENT: PERRLA, EOMI, Mucous membr. moist/pink Lungs: Clear to auscultation Heart: S1S2, RRR, no gallops, no murmurs Abdomen: Soft Rectal Exam: not examined Extremities: No clubbing, No cyanosis, No edema Skin: No rashes, No breakdown Neuro: Normal speech, Normal tone, Sensation intact Psych/Mental Status: Mental status NL, Mood NL General: Alert, Oriented X3, Cooperative, No acute distress Heart: Regular rate, Normal S1 Lungs: Clear Abdomen: Normal bowel sounds, Soft, No tenderness, No hepatosplenomegaly Extremities: No cyanosis, No edema, Normal pulses Skin: No significant lesion Labs LABS Tricuspid Valve TR P. Velocity 288cm/s TR Peak Gr. 33mmHg LEFT VENTRICLE The Left Ventricle is upper limits of normal. There is borderline concentric left ventricular hypertrophy. The left ventricular systolic function is normal and the ejection fraction is within normal range. Estimated ejection fraction 60-65%. There is normal LV segmental wall motion. RIGHT VENTRICLE The right ventricle is normal size. There is normal right ventricular wall thickness. The right ventricular systolic function is normal. AORTIC VALVE The aortic valve is normal in structure and function. There is no significant aortic valvular stenosis. MITRAL VALVE The mitral valve is normal in structure and function. There is no evidence of mitral valve prolapse. There is no mitral valve stenosis. TRICUSPID VALVE The tricuspid valve is normal in structure and function. Doppler and Color Flow revealed mild tricuspid regurgitation. Estimated PAP 38 mmHg. There is no tricuspid valve stenosis. PULMONIC VALVE The pulmonary valve is normal in structure and function. GREAT VESSELS The aortic root is mildly enlarged. The IVC is normal in size and collapses >50% with inspiration. PERICARDIAL EFFUSION There is no evidence of significant pericardial effusion. <Conclusion> The left ventricular systolic function is normal and the ejection fraction is within normal range. Estimated ejection fraction 60-65%. There is normal LV segmental wall motion. Doppler and Color Flow revealed mild tricuspid regurgitation. Estimated PAP 38 mmHg. Limited study only Signed by : Mariam Ridley, Electronically Approved : 11/07/2020 11:14:30 DICTATED and SIGNED BY: MARIAM RIDLEY MD DATE: 11/07/20 [id number] 0 Laboratory Tests Test 11/06/20 09:42 11/06/20 10:45 11/06/20 13:22 Heparin Anti-Xa Act, Unfractionated 0.40 IU/mL (0.30-0.70) SARS-CoV-2 Antigen (Rapid) Negative (NEGATIVE) Activated Clotting Time 172 sec (92-181) Comment Review of Relevant I have reviewed the following items constance (where applicable) has been applied. Labs Laboratory Tests Test 11/05/20 19:46 11/05/20 22:35 11/06/20 03:44 11/06/20 03:45 White Blood Count 9.2 x10^3/uL (4.0-11.0) Red Blood Count 4.17 x10^6/uL (4.30-5.70) Hemoglobin 14.1 g/dL (13.0-17.5) Hematocrit 42.1 % (39.0-53.0) Mean Corpuscular Volume 101 fL (79-100) Mean Corpuscular Hemoglobin 34 pg (25-35) Mean Corpuscular Hemoglobin Concent 34 g/dL (31-37) Red Cell Distribution Width 12.9 % (11.5-14.5) Platelet Count 293 x10^3/uL (140-400) Neutrophils (%) (Auto) 69 % (31-73) Lymphocytes (%) (Auto) 19 % (24-48) Monocytes (%) (Auto) 11 % (0-9) Eosinophils (%) (Auto) 1 % (0-3) Basophils (%) (Auto) 1 % (0-3) Neutrophils # (Auto) 6.3 x10^3/uL (1.8-7.7) Lymphocytes # (Auto) 1.7 x10^3/uL (1.0-4.8) Monocytes # (Auto) 1.1 x10^3/uL (0.0-1.1) Eosinophils # (Auto) 0.1 x10^3/uL (0.0-0.7) Basophils # (Auto) 0.1 x10^3/uL (0.0-0.2) Prothrombin Time 13.3 SEC (11.7-14.0) Prothromb Time International Ratio 1.1 (0.8-1.1) Activated Partial Thromboplast Time 29 SEC (24-38) Sodium Level 136 mmol/L (136-145) 136 mmol/L (136-145) Potassium Level 3.9 mmol/L (3.5-5.1) 4.4 mmol/L (3.5-5.1) Chloride Level 100 mmol/L (98-107) 102 mmol/L (98-107) Carbon Dioxide Level 30 mmol/L (21-32) 29 mmol/L (21-32) Anion Gap 6 (6-14) 5 (6-14) Blood Urea Nitrogen 13 mg/dL (8-26) 10 mg/dL (8-26) Creatinine 1.2 mg/dL (0.7-1.3) 1.1 mg/dL (0.7-1.3) Estimated GFR (Cockcroft-Gault) 74.2 82.1 BUN/Creatinine Ratio 11 (6-20) Glucose Level 106 mg/dL (70-99) 120 mg/dL (70-99) Calcium Level 9.1 mg/dL (8.5-10.1) 8.5 mg/dL (8.5-10.1) Magnesium Level 2.1 mg/dL (1.8-2.4) 2.0 mg/dL (1.8-2.4) Total Bilirubin 0.7 mg/dL (0.2-1.0) Aspartate Amino Transf (AST/SGOT) 16 U/L (15-37) Alanine Aminotransferase (ALT/SGPT) 31 U/L (16-63) Alkaline Phosphatase 90 U/L (46-116) Troponin I Quantitative 0.197 ng/mL (0.000-0.055) 1.137 ng/mL (0.000-0.055) 10.018 ng/mL (0.000-0.055) DV-Nqg-W-Type Natriuretic Peptide 636 pg/mL (0-124) Total Protein 8.1 g/dL (6.4-8.2) Albumin 3.5 g/dL (3.4-5.0) Albumin/Globulin Ratio 0.8 (1.0-1.7) Lipase 98 U/L (73-393) Heparin Anti-Xa Act, Unfractionated 0.44 IU/mL (0.30-0.70) Triglycerides Level 62 mg/dL (0-150) Cholesterol Level 114 mg/dL (0-200) LDL Cholesterol, Calculated 57 mg/dL (0-100) VLDL Cholesterol, Calculated 12 mg/dL (0-40) Non-HDL Cholesterol Calculated 69 mg/dL (0-129) HDL Cholesterol 45 mg/dL (40-60) Cholesterol/HDL Ratio 2.5 Test 11/06/20 09:42 11/06/20 10:45 11/06/20 13:22 Heparin Anti-Xa Act, Unfractionated 0.40 IU/mL (0.30-0.70) SARS-CoV-2 Antigen (Rapid) Negative (NEGATIVE) Activated Clotting Time 172 sec (92-181) Laboratory Tests Test 11/06/20 09:42 11/06/20 10:45 11/06/20 13:22 Heparin Anti-Xa Act, Unfractionated 0.40 IU/mL (0.30-0.70) SARS-CoV-2 Antigen (Rapid) Negative (NEGATIVE) Activated Clotting Time 172 sec (92-181) Medications Current Medications Aspirin (Kourtney Aspirin) 325 mg 1X ONCE PO Last administered on 11/05/20at 20:43; Start 11/05/20 at 20:00; Stop 11/05/20 at 20:01; Status DC Heparin Sodium (Porcine) (Heparin Sodium) 4,000 unit 1X ONCE IV Last a dministered on 11/05/20at 20:46; Start 11/05/20 at 20:30; Stop 11/05/20 at 20:38; Status DC Heparin Sodium/ Dextrose 250 ml @ 0 mls/hr CONT PRN IV PER PROTOCOL Last administered on 11/05/20at 20:47; Start 11/05/20 at 20:30 Ondansetron HCl (Zofran) 4 mg PRN Q8HRS PRN IV NAUSEA/VOMITING; Start 11/05/20 at 20:45; Stop 11/06/20 at 20:44; Status DC Fentanyl Citrate (Fentanyl 2ml Vial) 50 mcg Q2HR PRN IV PAIN; Start 11/05/20 at 20:45; Stop 11/06/20 at 20:44; Status DC Atenolol (Tenormin) 25 mg BID PO Last administered on 11/07/20at 08:11; Start 11/05/20 at 22:30 Hydralazine HCl (Apresoline) 20 mg BID PO Last administered on 11/07/20 08:08; Start 11/05/20 at 22:30 Lisinopril (Prinivil) 20 mg BID PO Last administered on 11/07/20 08:09; Start 11/05/20 at 22:30 Non-Formulary Medication (Albuterol Sulfate (Ventolin Hfa Inhaler)) 2 puff PRN Q4-6HRS IH ; Start 11/05/20 at 22:30; Status UNV Ascorbic Acid (Vitamin C) 500 mg DAILY PO Last administered on 11/07/20at 08:07; Start 11/06/20 at 09:00 Non-Formulary Medication (Beclomethasone Dipropionate (Qvar Redihaler)) 2 puff BID IH ; Start 11/06/20 at 09:00; Status UNV Flecainide Acetate (Tambocor) 100 mg PRN BID PRN PO afib; Start 11/05/20 at 22:30 Multivitamins (Thera M Plus) 1 tab DAILY PO Last administered on 11/07/20at 08:07; Start 11/06/20 at 09:00 Morphine Sulfate (Morphine Sulfate) 4 mg PRN Q2HR PRN IV PAIN Last administered on 11/06/20at 01:02; Start 11/05/20 at 22:30 Potassium Chloride (Klor-Con) 20 meq 1X ONCE PO Last administered on 11/05/20at 23:24; Start 11/05/20 at 22:30; Stop 11/05/20 at 22:31; Status DC Albuterol Sulfate (Ventolin Neb Soln) 2.5 mg PRN Q4HRS PRN NEB SHORTNESS OF BREATH; Start 11/05/20 at 22:45 Budesonide (Pulmicort) 0.5 mg RTBID NEB Last administered on 11/06/20at 20:12; Start 11/06/20 at 08:00 Zolpidem Tartrate (Ambien) 5 mg PRN QHS PRN PO INSOMNIA MR 5MG X1 Last administered on 11/06/20at 21:01; Start 11/06/20 at 00:00 Amiodarone HCl 150 mg/Dextrose 103 ml @ 618 mls/hr 1X ONCE IV ; Start 11/06/20 at 01:15; Stop 11/06/20 at 01:24; Status UNV Amiodarone HCl 150 mg/Dextrose 103 ml @ 600 mls/hr 1X ONCE IV Last administered on 11/06/20at 01:32; Start 11/06/20 at 01:30; Stop 11/06/20 at 01:40; Status DC Amiodarone HCl 450 mg/Dextrose 259 ml @ 0 mls/hr CONT PRN IV SEE I/O RECORD Las t administered on 11/06/20at 01:33; Start 11/06/20 at 01:30; Stop 11/06/20 at 16:56; Status DC Aspirin (Ecotrin) 81 mg DAILYWBKFT PO Last administered on 11/07/20at 08:08; Start 11/06/20 at 10:30 Lidocaine HCl (Xylocaine-Mpf 1% 2ml Vial) 2 ml STK-MED ONCE .ROUTE ; Start 11/06/20 at 11:44; Stop 11/06/20 at 11:45; Status DC Iohexol (Omnipaque 300 Mg/ml) 100 ml STK-MED ONCE .ROUTE ; Start 11/06/20 at 11:44; Stop 11/06/20 at 11:45; Status DC Heparin Sodium/ Sodium Chloride 1,000 ml @ As Directed STK-MED ONCE .ROUTE ; Start 11/06/20 at 11:44; Stop 11/06/20 at 11:45; Status DC Fentanyl Citrate (Fentanyl 2ml Vial) 100 mcg STK-MED ONCE .ROUTE ; Start 11/06/20 at 12:01; Stop 11/06/20 at 12:01; Status DC Midazolam HCl (Versed) 2 mg STK-MED ONCE .ROUTE ; Start 11/06/20 at 12:02; Stop 11/06/20 at 12:02; Status DC Heparin Sodium (Porcine) (Heparin Sodium) 10,000 unit STK-MED ONCE .ROUTE ; Start 11/06/20 at 12:02; Stop 11/06/20 at 12:02; Status DC Verapamil HCl (Verapamil) 5 mg STK-MED ONCE .ROUTE ; Start 11/06/20 at 12:02; Stop 11/06/20 at 12:02; Status DC Nitroglycerin (Nitroglycerin) 200 mcg STK-MED ONCE .ROUTE ; Start 11/06/20 at 12:02; Stop 11/06/20 at 12:02; Status DC Nitroglycerin (Nitroglycerin) 200 mcg 1X ONCE IART Last administered on 11/06/20at 12:43; Start 11/06/20 at 12:45; Stop 11/06/20 at 12:46; Status DC Verapamil HCl (Verapamil) 2.5 mg 1X ONCE IART Last administered on 11/06/20at 12:44; Start 11/06/20 at 12:45; Stop 11/06/20 at 12:46; Status DC Heparin Sodium (Porcine) (Heparin Sodium) 2,500 unit 1X ONCE IART Last administered on 11/06/20at 12:44; Start 11/06/20 at 12:45; Stop 11/06/20 at 12:46; Status DC Heparin Sodium/ Sodium Chloride (HEPARIN for ARTERIAL LINE FLUSH) 1,000 unit 1X ONCE IART Last administered on 11/06/20at 12:42; Start 11/06/20 at 12:45; Stop 11/06/20 at 12:46; Status DC Midazolam HCl (Versed) 2 mg 1X ONCE IV Last administered on 11/06/20at 12:44; Start 11/06/20 at 12:45; Stop 11/06/20 at 12:46; Status DC Fentanyl Citrate (Fentanyl 2ml Vial) 50 mcg 1X ONCE IV Last administered on 11/06/20at 12:43; Start 11/06/20 at 12:45; Stop 11/06/20 at 12:46; Status DC Iohexol (Omnipaque 300 Mg/ml) 100 ml 1X ONCE IART Last administered on 11/06/20at 12:42; Start 11/06/20 at 12:45; Stop 11/06/20 at 12:46; Status DC Lidocaine HCl (Xylocaine-Mpf 1% 2ml Vial) 2 ml 1X ONCE INJ Last administered on 11/06/20at 12:43; Start 11/06/20 at 12:45; Stop 11/06/20 at 12:46; Status DC Active Scripts Active Reported Vitamin C (Ascorbic Acid) 500 Mg Capsule.er 500 Mg PO DAILY Iron (Ferrous Sulfate) 325 Mg Tablet Unknown Dose PO DAILY Vitamin D3 (Cholecalciferol (Vitamin D3)) 1,250 Mcg Capsule Unknown Dose PO DAILY Klonopin (Clonazepam) 2 Mg Tablet 3 Mg PO DAILY Flecainide Acetate 100 Mg Tablet 1 Tab PO BID PRN Qvar Redihaler (Beclomethasone Dipropionate) 10.6 Gm Hfa.aeroba 2 Puff IH BID 30 Days Hydralazine Hcl 10 Mg Tablet 20 Mg PO BID Lisinopril 20 Mg Tablet 1 Tab PO BID Tenormin (Atenolol) 25 Mg Tablet 1 Tab PO BID 30 Days Multi-Day Vitamins (Multivitamin) 1 Each Tablet 1 Tab PO DAILY Ventolin Hfa Inhaler (Albuterol Sulfate) 18 Gm Hfa.aer.ad 2 Puff IH PRN Q4-6HRS Fish Oil 1,200 Mg Softgel (Bethany-3 Fatty Acids/Fish Oil) 1 Each Capsule 1 Each PO BID Vitals/I & O Vital Sign - Last 24 Hours 11/06/20 11/06/20 11/06/20 11/06/20 08:34 08:46 08:46 08:47 Pulse 54 54 54 B/P (MAP) 143/87 147/87 143/87 Pulse Ox 99 O2 Delivery Room Air 11/06/20 11/06/20 11/06/20 11/06/20 11:00 12:43 12:44 12:53 Temp 98.0 98.0 Pulse 55 56 60 Resp 16 14 15 B/P (MAP) 144/86 (105) Pulse Ox 97 100 100 O2 Delivery Room Air Nasal Cannula Nasal Cannula O2 Flow Rate 2.0 2.0 11/06/20 11/06/20 11/06/20 11/06/20 13:02 13:13 13:17 13:32 Pulse 57 54 56 Resp 17 17 B/P (MAP) 152/86 (108) 142/85 (104) 150/88 (108) Pulse Ox 98 100 98 98 O2 Delivery Room Air Room Air Room Air Room Air 11/06/20 11/06/20 11/06/20 11/06/20 13:48 14:02 14:32 15:02 Temp 98.5 98.5 Pulse 55 53 56 60 Resp 17 B/P (MAP) 154/91 (112) 161/90 (113) 155/92 (113) 141/85 (103) Pulse Ox 100 98 96 96 O2 Delivery Room Air Room Air Room Air Room Air 11/06/20 11/06/20 11/06/20 11/06/20 16:02 17:02 19:00 20:05 Temp 98.1 98.1 Pulse 56 57 58 Resp 16 B/P (MAP) 156/95 (115) 146/86 (106) 145/89 (107) Pulse Ox 97 99 97 O2 Delivery Room Air Room Air Room Air Room Air 11/06/20 11/06/20 11/06/20 11/06/20 20:12 20:51 20:51 21:00 Pulse 58 58 58 B/P (MAP) 145/89 145/89 145/89 Pulse Ox 99 O2 Delivery Room Air 11/06/20 11/07/20 11/07/20 11/07/20 23:00 03:13 08:08 08:09 Temp 98.0 98.0 98.0 98.0 Pulse 64 59 65 65 Resp 16 18 B/P (MAP) 146/90 (108) 154/78 (103) 140/81 140/81 Pulse Ox 98 100 O2 Delivery Room Air Room Air 11/07/20 08:11 Pulse 65 B/P (MAP) 140/81 Intake and Output 11/06/20 11/06/20 11/07/20 15:00 23:00 07:00 Intake Total 402 ml 180 ml 0 ml Output Total 750 ml 900 ml 200 ml Balance -348 ml -720 ml -200 ml Justicifation of Admission Dx: Justifications for Admission: Justification of Admission Dx: Yes SC: Acute STEMI ANNIE TAO MD Nov 07, 2020 08:24
[2020-11-07] MEDS ORDERED: CLOPIDOGREL BISULFATE 75 MG TABLET PO SCH (09:00)
[2020-11-07] MEDS ORDERED: clonazePAM 0.5 MG TABLET PO SCH (10:00)
[2020-11-07 10:17] VITALS: BP 141/82
--- NOTE | 2020-11-07 11:15 | CARD ---
MR#: [id number] Date of Study: 11/07/2020 Ordering Physician: VIN WARD, Referring Physician: VIN WARD, Tech: Amairani Hewitt [facility] APPROVED REPORT EXAM: Two-dimensional and M-mode echocardiogram with Doppler and color Doppler. Other Information Quality : GoodHR: 57bpm Rhythm : NSR INDICATION Palpitations RISK FACTORS Hypertension Obesity 2D DIMENSIONS Left Atrium(2D)4.5 (1.6-4.0cm)IVSd1.1 (0.7-1.1cm) Aortic Root(2D)4.2 (2.0-3.7cm)LVDd5.6 (3.9-5.9cm) LVOT Diameter2.5 (1.8-2.4cm)PWd1.1 (0.7-1.1cm) LVDs3.5 (2.5-4.0cm)FS (%) 37.0 % SV101.2 mlLVEF(%)66.2 (>50%) Tricuspid Valve TR P. [id number]/[id number] Peak Gr.33mmHg LEFT VENTRICLE The Left Ventricle is upper limits of normal. There is borderline concentric left ventricular hypertr ophy. The left ventricular systolic function is normal and the ejection fraction is within normal ran ge. Estimated ejection fraction 60-65%. There is normal LV segmental wall motion. RIGHT VENTRICLE The right ventricle is normal size. There is normal right ventricular wall thickness. The right ventr icular systolic function is normal. AORTIC VALVE The aortic valve is normal in structure and function. There is no significant aortic valvular stenosi s. MITRAL VALVE The mitral valve is normal in structure and function. There is no evidence of mitral valve prolapse. There is no mitral valve stenosis. TRICUSPID VALVE The tricuspid valve is normal in structure and function. Doppler and Color Flow revealed mild tricusp id regurgitation. Estimated PAP 38 mmHg. There is no tricuspid valve stenosis. PULMONIC VALVE The pulmonary valve is normal in structure and function. GREAT VESSELS The aortic root is mildly enlarged. The IVC is normal in size and collapses >50% with inspiration. PERICARDIAL EFFUSION There is no evidence of significant pericardial effusion. <Conclusion> The left ventricular systolic function is normal and the ejection fraction is within normal range. E stimated ejection fraction 60-65%. There is normal LV segmental wall motion. Doppler and Color Flow revealed mild tricuspid regurgitation. Estimated PAP 38 mmHg. Limited study only Signed by : Dwight Farris, Electronically Approved : 11/07/2020 11:14:30
--- NOTE | 2020-11-07 13:32 | PDOC ---
CARDIO Progress Notes Date and Time Date of Service 11/07/2020 Time of Evaluation 1320 Subjective Subjective: No Chest Pain, No shortness of breath, No Palpitations Vitals Vitals Vital Signs Date Time Temp Pulse Resp B/P (MAP) Pulse Ox O2 Delivery O2 Flow Rate FiO2 11/07/20 10:17 98.5 61 18 141/82 (101) 98 Room Air 98.5 11/06/20 12:53 2.0 Weight Weight [ ] Input and Output Intake and Output Intake and Output 11/07/20 07:00 Intake Total 582 ml Output Total 1850 ml Balance -1268 ml Intake Oral 180 ml IV Total 402 ml Output Urine Total 1850 ml Physical Exam HEENT: Neck Supple W Full Motion Chest: Symmetric LUNGS: Clear to Auscultation Heart: S1S2, RRR (SR) Abdomen: Soft N/T Extremities: No Calf Tenderness Neurology: alert, oriented, follow commands Assessment Assessment 1. Atypical CP. LHC revealed no CAD. EF and WM nmml 2. NSTEMI; trop highest 10. LHC and TTE unrevealing. Could potentially be myocarditis as well as arrhythmias. 3. Palpitations with h/o PAFIB s/p previous ablation. EKG upon arrival shows SR with PVC 4. Arrhythmias; having frequent PVC's and short burst of NSVT. Noted with intermittent PVCs otherwise SR 5. Accelerated hypertension: controlled 6. MAXIMO with CPAP Recommendations 1. ASA and plavix 2. Continue home atenolol and losartan. No need for statin,FLP is well on goal 3. DC flecainide 4. MCOT and will note PVC burden and other arrhythmias. 5. Consider for outpt cardiac MRI 6. Follow up in office Justicifation of Admission Dx: Justifications for Admission: Justification of Admission Dx: Yes [place]: Acute STEMI PETRA SYKES APRN Nov 07, 2020 13:32
--- NOTE | 2020-11-07 13:40 | PDOC3 ---
Discharge Summary Date of Admission: Nov 05, 2020 Date of Discharge: Nov 07, 2020 Follow-Up: 3-5 days Admitting Diagnosis comment: hospital course CONSULTS CARDIOLOGY PROCEDURES CARDIAC CATH, ECHO, CVC MONITORING COMPLICATIONS NONE D/C CONDITION GOOD PROGNOSIS GOOD F/U PCP 1 WEEK, CARDIOLOGY 2-3 WEEKS discharge DX Assessment/Plan chest pain, angina, ACS, NSTEMI MORBID OBESITY STRESS and anxiety PLAN CV consult and heparin gtt and aspirin given, trend troponin vent rhythm, abnormal, PVc's with ventricular trigemity Obese, BMI 31 Hx afib, Hx of ablation Asthma, stable 2- REMAINS ON HEPARIN DRIP d/c at d/c cardiology ok with d/c today Justifications for Admission Justifications for Admission Other Justification nstemi History of Present Illness History of Present Illness Identification/Chief Complaint Chief Complaint chest pain, palpitations Source Source: Chart review, Patient History of Present Illness History of Present Illness MR. Flores, is a 60-year-old male with a history of A. fib and hypertension who presents to the emergency department with chest pain and palpitations. He states his symptoms began last night at 2200 and include central chest di scomfort that radiates to the neck and left arm, and the sensation of his heart skipping a beat. His symptoms have been constant at onset. He denies any aggravating or alleviating factors. He had an ablation 7 years ago for his A. fib and occasionally takes flecainide for breakthrough irregularities. Denies any nausea or vomiting, shortness of breath, dizziness, diaphoresis. He denies any significant cardiac history. He has a known stable AAA and his last echo was in September with no irregularities. Past Medical History Cardiovascular: AFIB, HTN, Other Pulmonary: Asthma Hepatobiliary: No pertinent hx Psych: No pertinent hx ENT: No pertinent hx Renal/: No pertinent hx Endocrine: No pertinent hx Dermatology: No pertinent hx Past Surgical History Past Surgical History: No pertinent history Family History Family History: No Significant Social History Smoke: No ALCOHOL: none Current Medications Current Medications Current Medications Aspirin (Kourtney Aspirin) 325 mg 1X ONCE PO Last administered on 11/05/20at 20:43; Start 11/05/20 at 20:00; Stop 11/05/20 at 20:01; Status DC Heparin Sodium (Porcine) (Heparin Sodium) 4,000 unit 1X ONCE IV Last admini stered on 11/05/20at 20:46; Start 11/05/20 at 20:30; Stop 11/05/20 at 20:38; Status DC Heparin Sodium/ Dextrose 250 ml @ 0 mls/hr CONT PRN IV PER PROTOCOL Last administered on 11/05/20at 20:47; Start 11/05/20 at 20:30 Ondansetron HCl (Zofran) 4 mg PRN Q8HRS PRN IV NAUSEA/VOMITING; Start 11/05/20 at 20:45; Stop 11/06/20 at 20:44 Fentanyl Citrate (Fentanyl 2ml Vial) 50 mcg Q2HR PRN IV PAIN; Start 11/05/20 at 20:45; Stop 11/06/20 at 20:44 Active Scripts Active Reported Vitamin C (Ascorbic Acid) 500 Mg Capsule.er 500 Mg PO DAILY Iron (Ferrous Sulfate) 325 Mg Tablet Unknown Dose PO DAILY Vitamin D3 (Cholecalciferol (Vitamin D3)) 1,250 Mcg Capsule Unknown Dose PO DAILY Klonopin (Clonazepam) 2 Mg Tablet 3 Mg PO DAILY Flecainide Acetate 100 Mg Tablet 1 Tab PO BID PRN Qvar Redihaler (Beclomethasone Dipropionate) 10.6 Gm Hfa.aeroba 2 Puff IH BID 30 Days Hydralazine Hcl 10 Mg Tablet 20 Mg PO BID Lisinopril 20 Mg Tablet 1 Tab PO BID Tenormin (Atenolol) 25 Mg Tablet 1 Tab PO BID 30 Days Multi-Day Vitamins (Multivitamin) 1 Each Tablet 1 Tab PO DAILY Ventolin Hfa Inhaler (Albuterol Sulfate) 18 Gm Hfa.aer.ad 2 Puff IH PRN Q4-6HRS Fish Oil 1,200 Mg Softgel ([place]-3 Fatty Acids/Fish Oil) 1 Each Capsule 1 Each PO BID Allergies Allergies: Coded Allergies: Sulfa (Sulfonamide Antibiotics) (Verified Allergy, Intermediate, Hives, ) ROS General: YES: Fatigue, Malaise PSYCHOLOGICAL ROS: No: Anxiety, Behavioral Disorder, Concentration difficultie, Decreased libido, Depression, Disorientation, Hallucinations, Hostility, Irritablity, Memory difficulties, Mood Swings, Obsessive thoughts, Physical abuse, Sexual abuse, Sleep disturbances, Suicidal ideation, Other Eyes: No Blurry vision, No Decreased vision, No Double vision, No Dry eyes, No Excessive tearing, No Eye Pain, No Itchy Eyes, No Loss of vision, No Photophobia, No Scotomata, No Uses contacts, No Uses glasses, No Other HEENT: No: Heacaches, Visual Changes, Hearing change, Nasal congestion, Nasal discharge, Oral lesions, Sinus pain, Sore Throat, Epistaxis, Sneezing, Snoring, Tinnitus, Vertigo, Vocal changes, Other Respiratory: No: Cough, Hemoptysis, Orthopnea, Pleuritic Pain, Shortness of breath, SOB with excertion, Sputum Changes, Stridor, Tachypnea, Wheezing, Other Cardiovascular: yes Chest Pain, yes Palpitations Gastrointestinal: No Nausea, No Vomiting, No Abdominal Pain, No Diarrhea, No Constipation, No Melena, No Hematochezia, No Other Genitourinary: No Dysuria, No Frequency, No Incontinence, No Hematuria, No Retention, No Discharge, No Urgency, No Pain, No Flank Pain, No Other, No , No , No , No , No , No , No Musculoskeletal: No Gait Disturbance, No Joint Pain, No Joint Stiffness, No Joint Swelling, No Muscle Pain, No Muscular Weakness, No Pain In:, No Swelling In:, No Other Neurological: No Behavorial Changes, No Bowel/Bladder ControlChng, No Confusion, No Dizziness, No Gait Disturbance, No Headaches, No Impaired Coord/balance, No Memory Loss, No Numbness/Tingling, No Seizures, No Speech Problems, No Tremors, No Visual Changes, No Weakness, No Other Skin: No Dry Skin, No Eczema, No Hair Changes, No Lumps, No Mole Changes, No Mottling, No Nail Changes, No Pruritus, No Rash, No Skin Lesion Changes, No Other, No Acne Physical Exam Vitals Vitals Vital Signs Date Time Temp Pulse Resp B/P (MAP) Pulse Ox O2 Delivery O2 Flow Rate FiO2 11/07/20 08:11 65 140/81 11/07/20 03:13 98.0 18 100 Room Air 98.0 11/06/20 12:53 2.0 Physical Exam Physical Exam Physical Exam General: Alert, Oriented X3, Cooperative,NO distress HEENT: PERRLA, EOMI, Mucous membr. moist/pink Lungs: Clear to auscultation Heart: S1S2, RRR, no gallops, no murmurs Abdomen: Soft Rectal Exam: not examined Extremities: No clubbing, No cyanosis, No edema Skin: No rashes, No breakdown Neuro: Normal speech, Normal tone, Sensation intact Psych/Mental Status: Mental status NL, Mood NL General: Alert, Oriented X3, Cooperative, No acute distress Heart: Regular rate, Normal S1 Lungs: Clear Abdomen: Normal bowel sounds, Soft, No tenderness, No hepatosplenomegaly Extremities: No cyanosis, No edema, Normal pulses Skin: No significant lesion Labs LABS Tricuspid Valve TR P. Velocity 288cm/s TR Peak Gr. 33mmHg LEFT VENTRICLE The Left Ventricle is upper limits of normal. There is borderline concentric left ventricular hypertrophy. The left ventricular systolic function is normal and the ejection fraction is within normal range. Estimated ejection fraction 60-65%. There is normal LV segmental wall motion. RIGHT VENTRICLE The right ventricle is normal size. There is normal right ventricular wall thickness. The right ventricular systolic function is normal. AORTIC VALVE The aortic valve is normal in structure and function. There is no significant aortic valvular stenosis. MITRAL VALVE The mitral valve is normal in structure and function. There is no evidence of mitral valve prolapse. There is no mitral valve stenosis. TRICUSPID VALVE The tricuspid valve is normal in structure and function. Doppler and Color Flow revealed mild tricuspid regurgitation. Estimated PAP 38 mmHg. There is no tricuspid valve stenosis. PULMONIC VALVE The pulmonary valve is normal in structure and function. GREAT VESSELS The aortic root is mildly enlarged. The IVC is normal in size and collapses >50% with inspiration. PERICARDIAL EFFUSION There is no evidence of significant pericardial effusion. <Conclusion> The left ventricular systolic function is normal and the ejection fraction is within normal range. Estimated ejection fraction 60-65%. There is normal LV segmental wall motion. Doppler and Color Flow revealed mild tricuspid regurgitation. Estimated PAP 38 mmHg. Limited study only Signed by : Dwight Farris, Electronically Approved : 11/07/2020 11:14:30 Brief Hospital Course Mr. Flores is a 60 old [sex] who presented with [ ACUTE AR ] CONDITION AT DISCHARGE: Improved Discharge Medications Current Medications Aspirin (Kourtney Aspirin) 325 mg 1X ONCE PO Last administered on 11/05/20at 20:43; Start 11/05/20 at 20:00; Stop 11/05/20 at 20:01; Status DC Heparin Sodium (Porcine) (Heparin Sodium) 4,000 unit 1X ONCE IV Last administered on 11/05/20at 20:46; Start 11/05/20 at 20:30; Stop 11/05/20 at 20:38; Status DC Heparin Sodium/ Dextrose 250 ml @ 0 mls/hr CONT PRN IV PER PROTOCOL Last administered on 11/05/20at 20:47; Start 11/05/20 at 20:30 Ondansetron HCl (Zofran) 4 mg PRN Q8HRS PRN IV NAUSEA/VOMITING; Start 11/05/20 at 20:45; Stop 11/06/20 at 20:44; Status DC Fentanyl Citrate (Fentanyl 2ml Vial) 50 mcg Q2HR PRN IV PAIN; Start 11/05/20 at 20:45; Stop 11/06/20 at 20:44; Status DC Atenolol (Tenormin) 25 mg BID PO Last administered on 11/07/20at 08:11; Start 11/05/20 at 22:30 Hydralazine HCl (Apresoline) 20 mg BID PO Last administered on 11/07/20at 08:08; Start 11/05/20 at 22:30 Lisinopril (Prinivil) 20 mg BID PO Last administered on 11/07/20at 08:09; Start 11/05/20 at 22:30 Non-Formulary Medication (Albuterol Sulfate (Ventolin Hfa Inhaler)) 2 puff PRN Q4-6HRS IH ; Start 11/05/20 at 22:30; Status UNV Ascorbic Acid (Vitamin C) 500 mg DAILY PO Last administered on 11/07/20at 08:07; Start 11/06/20 at 09:00 Non-Formulary Medication (Beclomethasone Dipropionate (Qvar Redihaler)) 2 puff BID IH ; Start 11/06/20 at 09:00; Status UNV Flecainide Acetate (Tambocor) 100 mg PRN BID PRN PO afib; Start 11/05/20 at 22:30; Stop 11/07/20 at 08:35; Status DC Multivitamins (Thera M Plus) 1 tab DAILY PO Last administered on 11/07/20at 08:07; Start 11/06/20 at 09:00 Morphine Sulfate (Morphine Sulfate) 4 mg PRN Q2HR PRN IV PAIN Last administered on 11/06/20at 01:02; Start 11/05/20 at 22:30 Potassium Chloride (Klor-Con) 20 meq 1X ONCE PO Last administered on 11/05/20at 23:24; Start 11/05/20 at 22:30; Stop 11/05/20 at 22:31; Status DC Albuterol Sulfate (Ventolin Neb Soln) 2.5 mg PRN Q4HRS PRN NEB SHORTNESS OF BREATH; Start 11/05/20 at 22:45 Budesonide (Pulmicort) 0.5 mg RTBID NEB Last administered on 11/06/20at 20:12; Start 11/06/20 at 08:00 Zolpidem Tartrate (Ambien) 5 mg PRN QHS PRN PO INSOMNIA MR 5MG X1 Last administered on 11/06/20at 21:01; Start 11/06/20 at 00:00 Amiodarone HCl 150 mg/Dextrose 103 ml @ 618 mls/hr 1X ONCE IV ; Start 11/06/20 at 01:15; Stop 11/06/20 at 01:24; Status UNV Amiodarone HCl 150 mg/Dextrose 103 ml @ 600 mls/hr 1X ONCE IV Last administered on 11/06/20at 01:32; Start 11/06/20 at 01:30; Stop 11/06/20 at 01:40; Status DC Amiodarone HCl 450 mg/Dextrose 259 ml @ 0 mls/hr CONT PRN IV SEE I/O RECORD Last administered on 11/06/20at 01:33; Start 11/06/20 at 01:30; Stop 11/06/20 at 16:56; Status DC Aspirin (Ecotrin) 81 mg DAILYWBKFT PO Last administered on 11/07/20at 08:08; Start 11/06/20 at 10:30 Lidocaine HCl (Xylocaine-Mpf 1% 2ml Vial) 2 ml STK-MED ONCE .ROUTE ; Start 11/06/20 at 11:44; Stop 11/06/20 at 11:45; Status DC Iohexol (Omnipaque 300 Mg/ml) 100 ml STK-MED ONCE .ROUTE ; Start 11/06/20 at 11:44; Stop 11/06/20 at 11:45; Status DC Heparin Sodium/ Sodium Chloride 1,000 ml @ As Directed STK-MED ONCE .ROUTE ; Start 11/06/20 at 11:44; Stop 11/06/20 at 11:45; Status DC Fentanyl Citrate (Fentanyl 2ml Vial) 100 mcg STK-MED ONCE .ROUTE ; Start 11/06/20 at 12:01; Stop 11/06/20 at 12:01; Status DC Midazolam HCl (Versed) 2 mg STK-MED ONCE .ROUTE ; Start 11/06/20 at 12:02; Stop 11/06/20 at 12:02; Status DC Heparin Sodium (Porcine) (Heparin Sodium) 10,000 unit STK-MED ONCE .ROUTE ; Start 11/06/20 at 12:02; Stop 11/06/20 at 12:02; Status DC Verapamil HCl (Verapamil) 5 mg STK-MED ONCE .ROUTE ; Start 11/06/20 at 12:02; Stop 11/06/20 at 12:02; Status DC Nitroglycerin (Nitroglycerin) 200 mcg STK-MED ONCE .ROUTE ; Start 11/06/20 at 12:02; Stop 11/06/20 at 12:02; Status DC Nitroglycerin (Nitroglycerin) 200 mcg 1X ONCE IART Last administered on 11/06/20at 12:43; Start 11/06/20 at 12:45; Stop 11/06/20 at 12:46; Status DC Verapamil HCl (Verapamil) 2.5 mg 1X ONCE IART Last administered on 11/06/20at 12:44; Start 11/06/20 at 12:45; Stop 11/06/20 at 12:46; Status DC Heparin Sodium (Porcine) (Heparin Sodium) 2,500 unit 1X ONCE IART Last adm inistered on 11/06/20at 12:44; Start 11/06/20 at 12:45; Stop 11/06/20 at 12:46; Status DC Heparin Sodium/ Sodium Chloride (HEPARIN for ARTERIAL LINE FLUSH) 1,000 unit 1X ONCE IART Last administered on 11/06/20at 12:42; Start 11/06/20 at 12:45; Stop 11/06/20 at 12:46; Status DC Midazolam HCl (Versed) 2 mg 1X ONCE IV Last administered on 11/06/20at 12:44; Start 11/06/20 at 12:45; Stop 11/06/20 at 12:46; Status DC Fentanyl Citrate (Fentanyl 2ml Vial) 50 mcg 1X ONCE IV Last administered on 11/06/20at 12:43; Start 11/06/20 at 12:45; Stop 11/06/20 at 12:46; Status DC Iohexol (Omnipaque 300 Mg/ml) 100 ml 1X ONCE IART Last administered on 11/06/20at 12:42; Start 11/06/20 at 12:45; Stop 11/06/20 at 12:46; Status DC Lidocaine HCl (Xylocaine-Mpf 1% 2ml Vial) 2 ml 1X ONCE INJ Last administered on 11/06/20at 12:43; Start 11/06/20 at 12:45; Stop 11/06/20 at 12:46; Status DC Clopidogrel Bisulfate (Plavix) 75 mg DAILYWBKFT PO Last administered on 11/07/20at 10:16; Start 11/07/20 at 09:00 Clonazepam (KlonoPIN) 3 mg DAILY PO Last administered on 11/07/20at 10:16; Start 11/07/20 at 10:00 Active Scripts Active Reported Vitamin C (Ascorbic Acid) 500 Mg Capsule.er 500 Mg PO DAILY Iron (Ferrous Sulfate) 325 Mg Tablet Unknown Dose PO DAILY Vitamin D3 (Cholecalciferol (Vitamin D3)) 1,250 Mcg Capsule Unknown Dose PO DAILY Klonopin (Clonazepam) 2 Mg Tablet 3 Mg PO DAILY Flecainide Acetate 100 Mg Tablet 1 Tab PO BID PRN Qvar Redihaler (Beclomethasone Dipropionate) 10.6 Gm Hfa.aeroba 2 Puff IH BID 30 Days Hydralazine Hcl 10 Mg Tablet 20 Mg PO BID Lisinopril 20 Mg Tablet 1 Tab PO BID Tenormin (Atenolol) 25 Mg Tablet 1 Tab PO BID 30 Days Multi-Day Vitamins (Multivitamin) 1 Each Tablet 1 Tab PO DAILY Ventolin Hfa Inhaler (Albuterol Sulfate) 18 Gm Hfa.aer.ad 2 Puff IH PRN Q4-6HRS Fish Oil 1,200 Mg Softgel ([place]-3 Fatty Acids/Fish Oil) 1 Each Capsule 1 Each PO BID Vital Signs Vital Signs Date Time Temp Pulse Resp B/P (MAP) Pulse Ox O2 Delivery O2 Flow Rate FiO2 11/07/20 10:17 98.5 61 18 141/82 (101) 98 Room Air 98.5 11/06/20 12:53 2.0 Labs Laboratory Tests Test 11/05/20 19:46 11/05/20 22:35 11/06/20 03:44 11/06/20 03:45 White Blood Count 9.2 x10^3/uL (4.0-11.0) Red Blood Count 4.17 x10^6/uL (4.30-5.70) Hemoglobin 14.1 g/dL (13.0-17.5) Hematocrit 42.1 % (39.0-53.0) Mean Corpuscular Volume 101 fL (79-100) Mean Corpuscular Hemoglobin 34 pg (25-35) Mean Corpuscular Hemoglobin Concent 34 g/dL (31-37) Red Cell Distribution Width 12.9 % (11.5-14.5) Platelet Count 293 x10^3/uL (140-400) Neutrophils (%) (Auto) 69 % (31-73) Lymphocytes (%) (Auto) 19 % (24-48) Monocytes (%) (Auto) 11 % (0-9) Eosinophils (%) (Auto) 1 % (0-3) Basophils (%) (Auto) 1 % (0-3) Neutrophils # (Auto) 6.3 x10^3/uL (1.8-7.7) Lymphocytes # (Auto) 1.7 x10^3/uL (1.0-4.8) Monocytes # (Auto) 1.1 x10^3/uL (0.0-1.1) Eosinophils # (Auto) 0.1 x10^3/uL (0.0-0.7) Basophils # (Auto) 0.1 x10^3/uL (0.0-0.2) Prothrombin Time 13.3 SEC (11.7-14.0) Prothromb Time International Ratio 1.1 (0.8-1.1) Activated Partial Thromboplast Time 29 SEC (24-38) Sodium Level 136 mmol/L (136-145) 136 mmol/L (136-145) Potassium Level 3.9 mmol/L (3.5-5.1) 4.4 mmol/L (3.5-5.1) Chloride Level 100 mmol/L (98-107) 102 mmol/L (98-107) Carbon Dioxide Level 30 mmol/L (21-32) 29 mmol/L (21-32) Anion Gap 6 (6-14) 5 (6-14) Blood Urea Nitrogen 13 mg/dL (8-26) 10 mg/dL (8-26) Creatinine 1.2 mg/dL (0.7-1.3) 1.1 mg/dL (0.7-1.3) Estimated GFR (Cockcroft-Gault) 74.2 82.1 BUN/Creatinine Ratio 11 (6-20) Glucose Level 106 mg/dL (70-99) 120 mg/dL (70-99) Calcium Level 9.1 mg/dL (8.5-10.1) 8.5 mg/dL (8.5-10.1) Magnesium Level 2.1 mg/dL (1.8-2.4) 2.0 mg/dL (1.8-2.4) Total Bilirubin 0.7 mg/dL (0.2-1.0) Aspartate Amino Transf (AST/SGOT) 16 U/L (15-37) Alanine Aminotransferase (ALT/SGPT) 31 U/L (16-63) Alkaline Phosphatase 90 U/L (46-116) Troponin I Quantitative 0.197 ng/mL (0.000-0.055) 1.137 ng/mL (0.000-0.055) 10.018 ng/mL (0.000-0.055) ND-Omi-U-Type Natriuretic Peptide 636 pg/mL (0-124) Total Protein 8.1 g/dL (6.4-8.2) Albumin 3.5 g/dL (3.4-5.0) Albumin/Globulin Ratio 0.8 (1.0-1.7) Lipase 98 U/L (73-393) Heparin Anti-Xa Act, Unfractionated 0.44 IU/mL (0.30-0.70) Triglycerides Level 62 mg/dL (0-150) Cholesterol Level 114 mg/dL (0-200) LDL Cholesterol, Calculated 57 mg/dL (0-100) VLDL Cholesterol, Calculated 12 mg/dL (0-40) Non-HDL Cholesterol Calculated 69 mg/dL (0-129) HDL Cholesterol 45 mg/dL (40-60) Cholesterol/HDL Ratio 2.5 Test 11/06/20 09:42 11/06/20 10:45 11/06/20 13:22 Heparin Anti-Xa Act, Unfractionated 0.40 IU/mL (0.30-0.70) SARS-CoV-2 Antigen (Rapid) Negative (NEGATIVE) Activated Clotting Time 172 sec (92-181) Allergies Allergies Coded Allergies Type Severity Reaction Last Updated Verified Sulfa (Sulfonamide Antibiotics) Allergy Intermediate Hives 02/01/15 Yes Disposition/Orders: D/C to Home Justicifation of Admission Dx: Justifications for Admission: Justification of Admission Dx: Yes AR: Acute STEMI ANNIE TAO MD Nov 07, 2020 13:40
[2020-11-07] MEDS ORDERED: ASPI-886 PO (13:42)
[2020-11-07] MEDS ORDERED: CLOP75TA PO (13:42)
--- NOTE | 2020-11-07 13:44 | DISCH ---
DISCHARGE INSTRUCTIONS Condition on Discharge Condition on Discharge: Stable Activity After Discharge Activity Instructions for Disc: Activity as tolerated Lifting Instructions after Dis: Do not lift >10 pounds Driving Instructions after Dis: Do not drive today Diet after Discharge Diet after Discharge: Cardiac Diet Texture: Regular Liquid Texture: Thin Liquid Wound Incision Care Wound/Incision Care: No wound care needed Checks after Discharge Checks after discharge: Check blood press - daily, Check your Temp as needed Contacting the DR. after DC Call your doctor for: If your condition worsens Follow-Up Follow up with: cardiology soon as directed Follow Up With: Primary care provider in 2 weeks Treatment/Equipment after DC Adaptive Equipment Issued: None ANNIE TAO MD Nov 07, 2020 13:44
--- NOTE | 2020-11-07 13:59 | NUR ---
SS following up with discharge planning. SS reviewed pt chart and discussed with pt RN. Pt is currently on room air. Pt had heart cath on 11/06/2020. Discharge order on the chart for home with self care.
[2020-11-07 15:00] VITALS: BP 118/75
--- NOTE | 2020-11-07 15:49 | NUR ---
Discharge Note: SERGEI NEWBY Discharge instructions and discharge home medications reviewed with Patient and a copy given. All questions have been answered and understanding verbalized. The following instructions and handouts were given: clopidogrel, cardiac cathertization discharge instructions Patient discharged to home with self care via wheelchair.
== END 2020-11-07 15:50 | disposition home or self-care (01) | DRG 281 ==
LOC: ER 19:41 → 2 NORTH 21:12
PROVIDERS: ADMIT Internal Medicine; ATTEND Internal Medicine
PROC: 4A023N7 Measurement of Cardiac Sampling and Pressure, Left Heart, Percutaneous Approach (ICD-10-PCS; principal; 2020-11-06)
PROC: B2111ZZ Fluoroscopy of Multiple Coronary Arteries using Low Osmolar Contrast (ICD-10-PCS; 2020-11-06)
PROC: B2151ZZ Fluoroscopy of Left Heart using Low Osmolar Contrast (ICD-10-PCS; 2020-11-06)
DX: I21.4 Non-ST elevation (NSTEMI) myocardial infarction (principal); I47.2 Ventricular tachycardia; I24.9 Acute ischemic heart disease, unspecified; Z20.822 Contact with and (suspected) exposure to COVID-19; M19.90 Unspecified osteoarthritis, unspecified site; J45.909 Unspecified asthma, uncomplicated; I10 Essential (primary) hypertension; G47.33 Obstructive sleep apnea (adult) (pediatric); F41.9 Anxiety disorder, unspecified; I49.3 Ventricular premature depolarization; I71.4 Abdominal aortic aneurysm, without rupture; E66.01 Morbid (severe) obesity due to excess calories; I48.0 Paroxysmal atrial fibrillation; M48.02 Spinal stenosis, cervical region; Z68.31 Body mass index [BMI] 31.0-31.9, adult; Z88.2 Allergy status to sulfonamides; Z79.899 Other long term (current) drug therapy; Z83.3 Family history of diabetes mellitus; Z82.49 Family history of ischemic heart disease and other diseases of the circulatory system
CPT/HCPCS: 36415; 71045; 80048; 80053; 80061; 83690; 83735; 83880; 84484; 85025; 85347; 85520; 85610; 85730; 87426; 93005; 93308; 93458; 93567; 94640; 94760; 96365; 96376; 99152; 99153; C1769; C1894; J0282; J1644; J2250; J2270; J3010; J3490; J7060; Q9967; U0003; 99285-25; G0378; J7626

== ENCOUNTER → 2020-11-22 | Outpatient (CLI) | payer OTHER ==
[2020-11-07 15:00] VITALS: BP 118/75
[~2020-11-22] MED LIST changes: +ASPI-886 PO; +CLOP75TA PO; +DABI75CA3 PO
--- NOTE | 2020-11-22 10:48 | PDOC ---
Progress Note - Pain Clinic Date of Service: DOS: DATE: 11/22/20 TIME: 10:44 Diagnosis: Dx: Cervical radiculopathy with cervical degenerative disc disease and cervical spinal stenosis History or Present Illness: HPI: 60-year-old male returns for follow-up status post cervical epidural steroid action x1. Patient reports about 80% improvement in the neck and left upper extremity still some pain in the left arm however but the neck is doing much better patient reports that he is recently had a heart cath he is having some pa lpitations which was completely normal but is been on a blood thinner now Pradaxa antibiotic for 30days. Patient reports has been on it for about a week and a half currently. Patient reports otherwise doing fairly well still significant pain though in the left upper extremity in the base the neck and shoulder on the left side patient rates his pain as a 7 on scale 10 is worse ove r the past week 6 on average 5 its least is a 6 today. Patient reports no new motor or sensory deficits no new bowel or bladder incontinence reports he is better with sleeping at night still some pain with use of the left upper extremity with any weightbearing repetitive motions or reaching over his head. Physical Exam: VS: Pressure is 144/77 pulse 56 respirations 18 temperature 98.0 F height is 6 feet 1 inches weight is 256 pounds PE: PHYSICAL EXAMINATION: GENERAL: The patient is awake, alert, oriented, appropriate, very pleasant demeanor HEENT: Shows normocephalic, atraumatic. Extraocular movements are intact and symmetrical. Oral cavity: Mucous membranes moist and pink. Dentition is intact. NECK: Shows anterior throat supple without palpable lymphadenopathy noted. Swallow reflex symmetrical. CHEST: Shows normal on inspection. Breath sounds are clear bilaterally, no rales or rhonchi. HEART: Shows S1, S2 clear. No murmurs auscultated. ABDOMEN: Soft, nontender, nondistended, obese. No palpable organomegaly is noted. BACK: Shows spine grossly in the midline. Normal-appearing cervical lordotic curvature. Cervical paraspinous muscles show symmetrical with inspection on palpation some moderate tenderness diffusely bilaterally diffusely without significant radiation or asymmetry. Patient is full rotation motion of the ce rvical spine both laterally as well as extension flexion without significant increase in pain. There is slightly increased thoracic kyphosis, some minor flattening of the lumbar lordotic curvature. EXTREMITIES: Upper extremities show deep tendon reflexes 2+ in the biceps and triceps tendons. Motor exam is 5 on a scale of 5 with right strength, biceps and triceps flexion and 5/5 on the left. Peripheral pulses are 2+ radial. No peripheral edema is noted bilaterally. Shoulder shrug is strong and intact w ithout loss of strength on resistance as is abduction of the shoulders at 90 degrees bilaterally. Upper extremities are warm and dry to touch, equal in color and appearance. SKIN: Shows warm and dry, good turgor. No edema. No sores, rashes or bruising throughout. Procedure: Procedure: Options discussed with the patient. Patient chart was reviewed his his current medication regimen updated current review of systems updated today as well. We will proceed with awaiting Pradaxa to complete as he will be on this for 30 days. Once this time period is ended we will have him return for cervical epidural steroid injection #2. The meantime will be given Medrol Dosepak patient was given instructions well side effects beware with the medication. Medication Injected: Med Injected: None Condition at Discharge: Condition at Discharge: Condition at discharge is stable. ELBA LYONS MD Nov 22, 2020 10:48
== END | disposition home or self-care (01) ==
LOC: PNCL 10:05
PROVIDERS: ATTEND Anesthesiology
DX: M50.10 Cervical disc disorder with radiculopathy, unspecified cervical region (principal); M48.02 Spinal stenosis, cervical region; I48.91 Unspecified atrial fibrillation; I10 Essential (primary) hypertension; G47.30 Sleep apnea, unspecified; J45.909 Unspecified asthma, uncomplicated; M19.90 Unspecified osteoarthritis, unspecified site; Z79.899 Other long term (current) drug therapy; Z79.82 Long term (current) use of aspirin; Z88.2 Allergy status to sulfonamides; Z72.89 Other problems related to lifestyle
CPT/HCPCS: 99212; G0463

== ENCOUNTER → 2020-12-20 | Outpatient (CLI) | payer OTHER ==
[~2020-12-20] MED LIST changes: +IOHEXOL 180 MG/ML 10 ML VIAL. ONE; +methylPREDNISolone ACETATE 40 MG/ML VIAL. ONE; +methylPREDNISolone ACETATE 80 MG/ML VIAL. ONE
--- NOTE | 2020-12-20 11:19 | PDOC ---
Progress Note - Pain Clinic Date of Service: DOS: DATE: 12/20/20 TIME: 11:16 Diagnosis: Dx: Cervical radiculopathy with cervical degenerative disease and cervical spinal stenosis History or Present Illness: HPI: 60-year-old male returns follow-up status post cervical epidural to injection x1. Patient about 80% improvement after the first injection we elected to hold any further injections after his last visit November 22, 2020. Patient reports the pain has been returning over the past week or 2 in the base the neck and left shoulder and upper extremity as it was previously but not quite to baseline patient reports it still painful with repetitive motions lifting weights with the left upper extremity does not generally awaken her from sleep at night reports the pain is aching and tight in the base the neck and left shoulder radiating left posterior triceps also in the anterior pectoralis region as well as the posterior scapular region patient rates the pain is a 4 and scale 10 is worst for an average to its least over the past week and a 4 today patient reports aching and tight no new motor or sensory deficits no new changes. Physical Exam: VS: Blood pressure is 134/81 pulse 59 respirations 16 temperature is 98.4 F weight is 263 pounds PE: PHYSICAL EXAMINATION: GENERAL: The patient is awake, alert, oriented, appropriate, very pleasant demeanor HEENT: Shows normocephalic, atraumatic. Extraocular movements are intact and symmetrical. Oral cavity: Mucous membranes moist and pink. Dentition is intact. NECK: Shows anterior throat supple without palpable lymphadenopathy noted. Swallow reflex symmetrical. CHEST: Shows normal on inspection. Breath sounds are clear bilaterally. HEART: Shows S1, S2 clear. No murmurs auscultated. ABDOMEN: Soft, nontender, nondistended, obese. No palpable organomegaly is noted. BACK: Shows spine grossly in the midline. Normal-appearing cervical lordotic curvature. Cervical paraspinous muscles show symmetrical with inspection on palpation some mild tenderness in the inferior aspect of the cervical paraspinous posture only without radiation patient does show good rotation motion cervical spine both laterally greater than 45 degrees closer to 90 degrees as well as full extension full forward flexion without significant difficulty or pain reported. There is slightly increased thoracic kyphosis, some minor flattening of the lumbar lordotic curvature. EXTREMITIES: Upper extremities show deep tendon reflexes 2+ in the biceps and triceps tendons. Motor exam is 5 on a scale of 5 with right rib strength, biceps and triceps flexion and 5/5 on the left. Peripheral pulses are 2+ radial. No peripheral edema is noted bilaterally. Upper extremities are warm and dry to touch, equal in color and appearance. SKIN: Shows warm and dry, good turgor. No edema. No sores, rashes or bruising throughout. Procedure: Procedure: Options were discussed with the patient. Patient's old chart reviews his current medication regimen updated current review of systems updated today as well. We will proceed with second cervical epidural steroid ejections today with fluoroscopic guidance. Risks were discussed including but not limited to: Bleeding, infection, possibility of epidural hematoma and subsequent neurological compromise, dural puncture, headaches, spinal cord and/or nerve damage, side effects of steroid medication, and poor results regarding pain control. Patient understands and wished to proceed. She will return to the clinic in approximate 2 weeks for follow-up, was counseled as to return appointment activity level and side effects to be aware of. Medication Injected: Med Injected: Procedure cervical epidural steroid injection at the C6-7 level, using local anesthetic under sterile prep and drape using C-arm fluoroscopic guidance under local anesthesia medications injected ; 120 mg Depo-Medrol + 5 mL normal saline and 2 mL contrast; condition at discharge is stable patient tolerated procedure well. and had no complications Condition at Discharge: Condition at Discharge: Condition at discharge stable, patient already the procedure well and had no complications. ELBA LYONS MD Dec 20, 2020 11:19
--- NOTE | 2020-12-20 11:20 | PDOC4 ---
PROCEDURE Procedure Patient was consented for cervical epidural steroid injection. Risks were d iscussed including but not limited to: Bleeding, infection, possibility of epidural hematoma and subsequent neurological compromise, dural puncture, headaches, spinal cord and/or nerve damage, side effects of steroid medication, and poor results regarding pain control. Patient understands and wished to proceed. Procedure cervical epidural steroid injection at the C6-7 level, using local anesthetic under sterile prep and drape using C-arm fluoroscopic guidance under local anesthesia medications injected ; 120 mg Depo-Medrol + 5 mL normal saline and 2 mL contrast; condition at discharge is stable patient tolerated procedure well. and had no complications ELBA LYONS MD Dec 20, 2020 11:20
== END | disposition home or self-care (01) ==
LOC: PNCL 09:44
PROVIDERS: ATTEND Anesthesiology
DX: M50.10 Cervical disc disorder with radiculopathy, unspecified cervical region (principal); M48.02 Spinal stenosis, cervical region; I48.91 Unspecified atrial fibrillation; I10 Essential (primary) hypertension; J45.909 Unspecified asthma, uncomplicated; M19.90 Unspecified osteoarthritis, unspecified site; G47.30 Sleep apnea, unspecified; Z79.82 Long term (current) use of aspirin; Z79.899 Other long term (current) drug therapy; Z98.890 Other specified postprocedural states; Z88.2 Allergy status to sulfonamides; Z72.89 Other problems related to lifestyle
CPT/HCPCS: 62321; J1030; J1040; Q9965

== ENCOUNTER 2020-12-26 20:32 | Emergency (ER) | payer OTHER ==
[~2020-12-26] VITALS: Ht 172.7 cm; Wt 81.8 kg
[~2020-12-26 20:32] MED LIST changes: -IOHEXOL 180 MG/ML 10 ML VIAL. ONE; -methylPREDNISolone ACETATE 40 MG/ML VIAL. ONE; -methylPREDNISolone ACETATE 80 MG/ML VIAL. ONE
[2020-12-26 22:09] VITALS: BP 148/80
== END 2020-12-26 22:09 | disposition left against medical advice (07) ==
LOC: ER 20:32
DX: R00.2 Palpitations (principal); Z53.21 Procedure and treatment not carried out due to patient leaving prior to being seen by health care provider

== ENCOUNTER → 2021-01-26 | Outpatient (CLI) | payer OTHER ==
[~2021-01-26] MED LIST changes: +IOHEXOL 180 MG/ML 10 ML VIAL. ONE; +methylPREDNISolone ACETATE 40 MG/ML VIAL. ONE; +methylPREDNISolone ACETATE 80 MG/ML VIAL. ONE
--- NOTE | 2021-01-26 09:43 | PDOC4 ---
PROCEDURE Procedure Patient was consented for cervical epidural steroid injection. Risks were d iscussed including but not limited to: Bleeding, infection, possibility of epidural hematoma and subsequent neurological compromise, dural puncture, headaches, spinal cord and/or nerve damage, side effects of steroid medication, and poor results regarding pain control. Patient understands and wished to proceed. Procedure cervical epidural steroid injection at the C6-7 level, using local anesthetic under sterile prep and drape using C-arm fluoroscopic guidance under local anesthesia medications injected ;120 mg Depo-Medrol +5 mL normal saline and 2 mL contrast; condition at discharge is stable patient tolerated procedure well. and had no complications ELBA LYONS MD January 26, 2021 09:43
--- NOTE | 2021-01-26 09:43 | PDOC ---
Progress Note - Pain Clinic Date of Service: DOS: DATE: 01/26/21 TIME: 09:40 Diagnosis: Dx: Cervical radiculopathy with cervical degenerative disc disease and cervical spinal stenosis History or Present Illness: HPI: 60-year-old male returns for follow-up status post cervical epidural steroid action x2. Patient reports a second injection which was December 20, 2020 approximately 4 about 5 weeks with about 70% improvement in the base the neck and left upper extremity patient reports pain returning now but only minimally in the base the neck and left arm rating the posterior deltoid posterior triceps and into the forearm patient reports some in the shoulder as well but has been able to breathe easier for with better excursion of the chest without as much pain in the left shoulder and arm patient reports no new motor or sensory deficits patient scribes pain is dull and tight in the base the neck and left upper extremity is very pleased with his progress. Patient rates his pain is a 2 on scale 10 is worst 2 on average 1 its least as a 2 today. Patient reports no new motor or sensory deficits or other complaints. Physical Exam: VS: Blood pressure is 126/76 pulse 57 respirations 16 temperature 98.1 F 6 foot 4 inches weight is 260 pounds PE: PHYSICAL EXAMINATION: GENERAL: The patient is awake, alert, oriented, appropriate, very pleasant demeanor HEENT: Shows normocephalic, atraumatic. Extraocular movements are intact and symmetrical. Oral cavity: Mucous membranes moist and pink. Dentition is intact. NECK: Shows anterior throat supple without palpable lymphadenopathy noted. Swallow reflex symmetrical. CHEST: Shows normal on inspection. Breath sounds are clear bilaterally, no rales rhonchi wheezes auscultated. HEART: Shows S1, S2 clear. No murmurs auscultated. ABDOMEN: Soft, nontender, nondistended, obese. No palpable organomegaly is noted. No rebound or guarding demonstrated. BACK: Shows spine grossly in the midline. Normal-appearing cervical lordotic curvature. There is slightly increased thoracic kyphosis, some minor flattening of the lumbar lordotic curvature. Lumbar paraspinous muscles show symmetrical on inspection, on palpation shows some moderate tenderness diffusely throughout the upper, middle and lower distribution of the paraspinous muscles, but without specific trigger points, without radiation of pain. The patient has good rotational motion of the lumbar spine, both laterally as well as extension and flexion without significant difficulty. EXTREMITIES: Upper extremities show deep tendon reflexes 2+ in the biceps and triceps tendons. 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 Peripheral pulses are 2 radial. No peripheral edema is noted bilaterally. Upper extremities are warm and dry to touch, equal in color and appearance. SKIN: Shows warm and dry, good turgor. No edema. No sores, rashes or bruising throughout. Procedure: Procedure: Options were discussed with the patient. Patient's old chart was reviewed his his current medication regimen updated current review of systems updated today as well. We will proceed with a third in the series cervical epidural steroid injection today with fluoroscopic guidance. Risks were discussed including but not limited to: Bleeding, infection, possibility of epidural hematoma and subsequent neurological compromise, dural puncture, headaches, spinal cord and/or nerve damage, side effects of steroid medication, and poor results regar ding pain control. Patient understands and wished to proceed. Patient will return to the clinic in approximate 2 weeks for follow-up, was counseled as to return appointment activity level and side effects aware of. Medication Injected: Med Injected: Procedure cervical epidural steroid injection at the C6-7 level, using local anesthetic under sterile prep and drape using C-arm fluoroscopic guidance under local anesthesia medications injected ;120 mg Depo-Medrol +5 mL normal saline and 2 mL contrast; condition at discharge is stable patient tolerated procedure well. and had no complications Condition at Discharge: Condition at Discharge: Condition at discharge stable, patient tolerated procedure well and had no complications. ELBA LYONS MD January 26, 2021 09:43
== END | disposition home or self-care (01) ==
LOC: PNCL 09:04
PROVIDERS: ATTEND Anesthesiology
DX: M50.10 Cervical disc disorder with radiculopathy, unspecified cervical region (principal); M48.061 Spinal stenosis, lumbar region without neurogenic claudication; I48.91 Unspecified atrial fibrillation; I10 Essential (primary) hypertension; M19.90 Unspecified osteoarthritis, unspecified site; G47.30 Sleep apnea, unspecified; J45.909 Unspecified asthma, uncomplicated; Z79.82 Long term (current) use of aspirin; Z79.899 Other long term (current) drug therapy; Z98.890 Other specified postprocedural states; Z88.2 Allergy status to sulfonamides; Z72.89 Other problems related to lifestyle
CPT/HCPCS: 62321; J1030; J1040; Q9965

== ENCOUNTER 2021-02-01 07:33 | Observation (INO) | payer OTHER ==
[~2021-02-01] VITALS: Ht 193 cm; Wt 115.0 kg
[~2021-02-01 07:33] MED LIST changes: -IOHEXOL 180 MG/ML 10 ML VIAL. ONE; -methylPREDNISolone ACETATE 40 MG/ML VIAL. ONE; -methylPREDNISolone ACETATE 80 MG/ML VIAL. ONE
[2021-02-01 07:56] LABS: BASO # 0.1 x10^3/uL (0.0-0.2); BASO % 1 % (0-3); EOS % 1 % (0-3); HEMATOCRIT 40.2 % (39.0-53.0); HEMOGLOBIN 13.7 g/dL (13.0-17.5); LYMPH # 1.7 x10^3/uL (1.0-4.8); LYMPH % 22 % (24-48); MEAN CORPUSCULAR HEMOGLOBIN 34 pg (25-35); MEAN CORPUSCULAR HGB CONC 34 g/dL (31-37); MEAN CORPUSCULAR VOLUME 99 fL (79-100); MONO # 0.7 x10^3/uL (0.0-1.1); MONO % 8 % (0-9); NEUT # 5.3 x10^3/uL (1.8-7.7); NEUT % 68 % (31-73); PLATELET COUNT 242 x10^3/uL (140-400); RED BLOOD COUNT 4.05 x10^6/uL (4.30-5.70); RED CELL DISTRIBUTION WIDTH 13.1 % (11.5-14.5); WHITE BLOOD COUNT 7.8 x10^3/uL (4.0-11.0)
[2021-02-01] MEDS ORDERED: ONDANSETRON PF 4 MG/2 ML VIAL. IVP ONE (08:00)
[2021-02-01 08:11] LABS: CREATININE 1.2 mg/dL (0.7-1.3); GFR 74.2; POTASSIUM 4.6 mmol/L (3.5-5.1)
--- NOTE | 2021-02-01 08:16 | ED.ADGEN ---
Past Medical History Past Medical History: A-Fib, Anxiety, Asthma, Hypertension, Other Additional Past Medical Histor: AAA Past Surgical History: Other Additional Past Surgical Histo: URETHRAL RESECTION, cardiac ablation, cardiac cath Smoking Status: Never Smoker Alcohol Use: None Drug Use: None General Adult EDM: Chief Complaint: Palpitations HPI: HPI: Patient is 60-year-old male with past medical history of atrial fibrillation status post ablation 7 years ago who presents to the emergency room with palpitations. Patient states that he had something similar happen to them about 3 months ago. He states at that time his troponin was elevated and he was admitted and evaluated by Dr. Farris. He had an echocardiogram and a cardiac cath that were normal. He wore a Holter monitor which did not record any episodes after discharge. He was referred to Dr. Jones for electrophysiology specialty. He did has seen the cell maker but has not had the work-up done that was ordered as it is pending insurance approval. Patient states that he has been back to normal with no issues for the last 3 months. He states that yesterday he started feeling PVCs particularly when he got up and moved around. This is been getting worse. It makes him feel weak and dizzy. This feels very similar to his prior episode. He has been taking his flecainide as prescribed. Review of Systems: Review of Systems: Complete ROS is negative unless otherwise documented in HPI Current Medications: Current Medications Medications (Trade) Dose Ordered Sig/Svetlana Start Time Stop Time Status Last Admin Dose Admin Ondansetron HCl (Zofran) 4 mg 1X ONCE 02/01/21 08:00 02/01/21 08:02 DC Allergies: Allergies: Allergies Coded Allergies Type Severity Reaction Last Updated Verified Sulfa (Sulfonamide Antibiotics) Allergy Intermediate Hives 02/01/21 Yes Physical Exam: PE: General: Awake, alert, NAD. Well Nourished, well hydrated. Cooperative HEENT: Atraumatic, EOMI, PERRL, airway patent, moist oral mucosa Neck: Supple, trachea midline Respiratory: CTA bilaterally, normal effort, no wheezing/crackles CV: Bradycardia, irregular rhythm, no murmur, cap refill <2 GI: Soft, nondistended, nontender, no masses MSK: No obvious deformities Skin: Warm, dry, intact Neuro: A&O x3, speech NL, sensory and motor grossly intact, no focal deficits Psych: Normal affect, normal mood, not suicidal or homicidal Current Patient Data: Labs: Laboratory Tests Test 02/01/21 07:47 White Blood Count 7.8 x10^3/uL (4.0-11.0) Red Blood Count 4.05 x10^6/uL (4.30-5.70) L Hemoglobin 13.7 g/dL (13.0-17.5) Hematocrit 40.2 % (39.0-53.0) Mean Corpuscular Volume 99 fL (79-100) Mean Corpuscular Hemoglobin 34 pg (25-35) Mean Corpuscular Hemoglobin Concent 34 g/dL (31-37) Red Cell Distribution Width 13.1 % (11.5-14.5) Platelet Count 242 x10^3/uL (140-400) Neutrophils (%) (Auto) 68 % (31-73) Lymphocytes (%) (Auto) 22 % (24-48) L Monocytes (%) (Auto) 8 % (0-9) Eosinophils (%) (Auto) 1 % (0-3) Basophils (%) (Auto) 1 % (0-3) Neutrophils # (Auto) 5.3 x10^3/uL (1.8-7.7) Lymphocytes # (Auto) 1.7 x10^3/uL (1.0-4.8) Monocytes # (Auto) 0.7 x10^3/uL (0.0-1.1) Eosinophils # (Auto) 0.0 x10^3/uL (0.0-0.7) Basophils # (Auto) 0.1 x10^3/uL (0.0-0.2) Sodium Level 138 mmol/L (136-145) Potassium Level 4.6 mmol/L (3.5-5.1) Chloride Level 103 mmol/L (98-107) Carbon Dioxide Level 30 mmol/L (21-32) Anion Gap 5 (6-14) L Blood Urea Nitrogen 12 mg/dL (8-26) Creatinine 1.2 mg/dL (0.7-1.3) Estimated GFR (Cockcroft-Gault) 74.2 BUN/Creatinine Ratio 10 (6-20) Glucose Level 105 mg/dL (70-99) H Calcium Level 9.0 mg/dL (8.5-10.1) Magnesium Level 2.1 mg/dL (1.8-2.4) Total Bilirubin 0.6 mg/dL (0.2-1.0) Aspartate Amino Transferase (AST) 18 U/L (15-37) Alanine Aminotransferase (ALT) 27 U/L (16-63) Alkaline Phosphatase 89 U/L (46-116) Troponin I Quantitative < 0.017 ng/mL (0.000-0.055) GS-Nkm-B-Type Natriuretic Peptide 131 pg/mL (0-124) H Total Protein 8.0 g/dL (6.4-8.2) Albumin 3.8 g/dL (3.4-5.0) Albumin/Globulin Ratio 0.9 (1.0-1.7) L Laboratory Tests 02/01/21 07:47 Laboratory Tests 02/01/21 07:47 Vital Signs: Vital Signs Date Time Temp Pulse Resp B/P (MAP) Pulse Ox O2 Delivery O2 Flow Rate FiO2 02/01/21 09:42 54 20 158/90 (112) 100 Room Air 02/01/21 07:35 97.6 97.6 EKG: EKG: [] Heart Score: C/O Chest Pain: Yes HEART Score for Chest Pain: HEART Score for Chest Pain Response (Comments) Value History Slighlty/Non-Suspicious 0 ECG Nonspecific Repolarizatio 1 Age >45 - < 65 1 Risk Factors 1 or 2 Risk Factors 1 Total 3 Risk Factors: Risk Factors: DM, Current or recent (<one month) smoker, HTN, HLP, family history of CAD, obesity. Risk Scores: Score 0 - 3: 2.5% MACE over next 6 weeks - Discharge Home Score 4 - 6: 20.3% MACE over next 6 weeks - Admit for Clinical Observation Score 7 - 10: 72.7% MACE over next 6 weeks - Early Invasive Strategies Radiology/Procedures: Radiology/Procedures: [] Course & Med Decision Making: Course & Med Decision Making Pertinent Labs and Imaging studies reviewed. (See chart for details) Patient is a 60-year-old male who presents to the emergency room with palpitations. Patient does have bradycardia with PVCs on his EKG. Blood pressure is stable at this time. During my interview patient did have a 2 beat episode of nonsustained V. tach. Patient is able to feel his PVCs and his episode of V. tach. He did not lose consciousness during this. Lab work will be ordered including CBC, CMP, magnesium, troponin. EKG and chest x-ray were ordered. Patient will likely need admission. We will discussed this with the instrumentation controls engineer for patient's appropriate place of admission. Cardiology will consult. Patient did have multiple other episodes of nonsustained V. tach. He will be admitted to the hospital. Lab work is unremarkable. Dragon Disclaimer: Moody Disclaimer: This electronic medical record was generated, in whole or in part, using a voice recognition dictation system. Departure Departure Impression: Primary Impression: PVC's (premature ventricular contractions) Additional Impression: NSVT (nonsustained ventricular tachycardia) Disposition: ADMITTED INPATIENT Condition: STABLE Referrals: GILBERTO CONWAY MD (PCP) Problem Qualifiers MALLY WU MD February 01, 2021 08:16
[2021-02-01 08:17] LABS: ALBUMIN 3.8 g/dL (3.4-5.0); ALBUMIN/GLOBULIN RATIO 0.9 (1.0-1.7); MAGNESIUM 2.1 mg/dL (1.8-2.4); TOTAL BILIRUBIN 0.6 mg/dL (0.2-1.0)
--- NOTE | 2021-02-01 08:38 | RAD ---
EXAM: Chest, single view. HISTORY: Palpitations. COMPARISON: 11/05/2020. FINDINGS: A frontal view of the chest obtained. There is no infiltrate, pleural effusion or pneumotho rax. The heart is normal in size. IMPRESSION: No acute pulmonary finding. Electronically signed by: Augusta Rodgers MD (02/01/2021 8:36 AM) [id number]
--- NOTE | 2021-02-01 11:49 | HP ---
ADMIT DATE: 02/01/2021 CHIEF COMPLAINT: Palpitations. HISTORY OF PRESENT ILLNESS: The patient is a pleasant 60-year-old male who appears younger than his stated age. 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 Apparently 7 years ago, he did have AFib and underwent an ablation at that time. Three months ago, he was back in our emergency room complaining of PVCs. They did a cardiac catheterization at that time, which was apparently negative. Over the past few days, he has been dizzy, has been a little short of breath. He is having PVCs. When he got to the ER, his rate is in the 30-50 range. He is on flecainide and metoprolol. I discussed the case with ER physician. We are going to admit the patient. I suspect we will be holding his antiarrhythmics and beta blockade and consult Cardiology, Dr. Farris is going to come down to see him as well. PAST MEDICAL HISTORY: Above-mentioned AFib, cardiac ablation, arrhythmias, hypertension and pinched nerve in his neck. ALLERGIES: None. FAMILY HISTORY: Diabetes. 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 He does not drink, smoke or take drugs. He likes to work out and run a couple of miles a day. MEDICATIONS: Medications reviewed, please refer to the MRAD. REVIEW OF SYSTEMS: GENERAL: No history of weight change, weakness or fevers. SKIN: No bruising, hair changes or rashes. EYES: No blurred, double or loss of vision. NOSE AND THROAT: No history of nosebleeds, hoarseness or sore throat. HEART: He complains of palpitations. LUNGS: Denies cough, hemoptysis, wheezing or shortness of breath. GASTROINTESTINAL: Denies changes in appetite, nausea, vomiting, diarrhea or constipation. GENITOURINARY: No history of frequency, urgency, hesitancy or nocturia. NEUROLOGIC: Denies history of numbness, tingling, tremor or weakness. PSYCHIATRIC: No history of panic, anxiety or depression. ENDOCRINE: No history of heat or cold intolerance, polyuria or polydipsia. EXTREMITIES: Denies muscle weakness, joint pain, pain on walking or stiffness. PHYSICAL EXAMINATION: VITALS: His temperature is afebrile, pulse 30 to 50, respirations 18, blood pressure within normal limits. GENERAL: No apparent distress. Alert and oriented. HEENT: Normal cephalic atraumatic, external auditory canals are patent. EYES: Extraocular muscles are intact, pupils are equally round and reactive to light and accommodation. MUSCULOSKELETAL: Well developed, well nourished, good range of motion. ENDOCRINE: No thyromegaly was palpated. LYMPHATICS: No cervical chain or axillary nodes were noted. HEMATOPOIETIC: No bruising. NECK: Supple, no JVD, no thyromegaly was noted. LUNGS: Clear to auscultation in all lung naranjo without rhonchi or wheezing. HEART: RRR, S1, S2 present. Peripheral pulses intact, no obvious murmurs were noted. ABDOMEN: Soft, nontender. Positive bowel sounds no organomegaly, normal bowel sounds. EXTREMITIES: Without any cyanosis, clubbing, or edema. Pedal pulses intact, Homans sign is negative. NEUROLOGIC: Normal speech, normal tone. A and O x 3, moves all extremities, no obvious focal deficits. PSYCHIATRIC: Normal affect, normal mood. Stable. SKIN: No ulcerations or rashes, good skin turgor, no jaundice. VASCULAR: Good capillary refill, neurovascular bundle appears to be intact. LABORATORY DATA: Troponin is 0. Electrolytes: Sodium 138, potassium 4.6, chloride 102, bicarbonate 30, BUN 12, creatinine 1.2, glucose 105. White count is 7.8, hemoglobin 13.7, platelets 242. IMAGING: Chest x-ray is negative. ASSESSMENT AND PLAN: Arrhythmias in a middle-aged male with the above noted comorbidities, suspect his bradycardia could be related to the beta cadence and flecainide, would consider holding both of those or at least the beta cadence. We will consult Cardiology, cardiac monitoring, serial enzymes, serial EKGs, home medications. Continue his other home medications. DVT prophylaxis. Full code. Suspect after he is discharged, we will need to see his wardrobe attendant at [facility] (it should be noted that he has seen the wardrobe attendant in the recent past and apparently is awaiting a CAT scan of the heart, a PET scan and a loop recorder). ALYSSA DR: Giacomo TID: [id number]
[2021-02-01] MEDS ORDERED: ALBUTEROL SULFATE 2.5 MG/3 ML NEBU. NEB PRN (12:00)
[2021-02-01] MEDS ORDERED: hydrALAZINE 20 MG/ML VIAL. IVP PRN (12:00)
--- NOTE | 2021-02-01 12:00 | PDOC2 ---
CARDIAC CONSULT DATE OF CONSULT Date of Consult DATE: 02/01/21 TIME: 11:43 REASON FOR CONSULT Reason for Consult: Arrhythmia REFERRING PHYSICIAN Referring Physician: Logan SOURCE Source: Chart review, Patient HISTORY OF PRESENT ILLNESS HISTORY OF PRESENT ILLNESS This is a pleasant 60 yo male admitted for complains of chest discomfort. Described like his heart was slowng down and having skip beats like when he was having PVCs. He was going to work but was just feeling weak today. No nausea vomiting or diarrhea, no fever or chills. Upon admission he was noted with HR at times in the 30s with PVCs and NSVT. He saw his EP Dr Fernandez about 3 weeks ago and his flecainide was increased to 150 mg bid. He is also on atenolol low dose. No passing out. He was told that he is suppose to have further imaging and loop recorder. No prior covid-19 exposure. He had his [employer] vaccine in 2020. No excessive cafeeinated beverages use. PAST MEDICAL HISTORY Past Medical History Cardiovascular: NSTEMI type 2, HTN, Other (AAA), PAFIB, PVCs Pulmonary: Asthma, Other (MAXIMO) Psych: Anxiety Musculoskeletal: Osteoarthritis PAST SURGICAL HISTORY Past Surgical History cardiac ablation FAMILY HISTORY Family History: Diabetes SOCIAL HISTORY Smoke: No ALCOHOL: none Drugs: None Lives: with Family ALLERGIES ALLERGIES: Coded Allergies: Sulfa (Sulfonamide Antibiotics) (Verified Allergy, Intermediate, Hives, 02/01/21) ROS Review of System 14 point ROS evaluated with pertinent positives noted per HPI PHYSICAL EXAM General: Alert, Oriented X3, Cooperative, No acute distress HEENT: Atraumatic, Mucous membr. moist/pink Lungs: Clear to auscultation Heart: Regular rate (SR/SB), Normal S1, Normal S2, No murmurs Abdomen: Soft, No tenderness Extremities: No cyanosis, No edema Skin: No breakdown, No significant lesion Neuro: Normal speech, Sensation intact Psych/Mental Status: Mental status NL, Mood NL MUSCULOSKELETAL: Osteoarthritic changes both hands VITALS/I&O VITALS/I&O: Vital Signs Date Time Temp Pulse Resp B/P (MAP) Pulse Ox O2 Delivery O2 Flow Rate FiO2 02/01/21 09:42 54 20 158/90 (112) 100 Room Air 02/01/21 07:35 97.6 97.6 LABS Lab: Laboratory Tests Test 02/01/21 07:47 White Blood Count 7.8 x10^3/uL (4.0-11.0) Red Blood Count 4.05 x10^6/uL (4.30-5.70) L Hemoglobin 13.7 g/dL (13.0-17.5) Hematocrit 40.2 % (39.0-53.0) Mean Corpuscular Volume 99 fL (79-100) Mean Corpuscular Hemoglobin 34 pg (25-35) Mean Corpuscular Hemoglobin Concent 34 g/dL (31-37) Red Cell Distribution Width 13.1 % (11.5-14.5) Platelet Count 242 x10^3/uL (140-400) Neutrophils (%) (Auto) 68 % (31-73) Lymphocytes (%) (Auto) 22 % (24-48) L Monocytes (%) (Auto) 8 % (0-9) Eosinophils (%) (Auto) 1 % (0-3) Basophils (%) (Auto) 1 % (0-3) Neutrophils # (Auto) 5.3 x10^3/uL (1.8-7.7) Lymphocytes # (Auto) 1.7 x10^3/uL (1.0-4.8) Monocytes # (Auto) 0.7 x10^3/uL (0.0-1.1) Eosinophils # (Auto) 0.0 x10^3/uL (0.0-0.7) Basophils # (Auto) 0.1 x10^3/uL (0.0-0.2) Sodium Level 138 mmol/L (136-145) Potassium Level 4.6 mmol/L (3.5-5.1) Chloride Level 103 mmol/L (98-107) Carbon Dioxide Level 30 mmol/L (21-32) Anion Gap 5 (6-14) L Blood Urea Nitrogen 12 mg/dL (8-26) Creatinine 1.2 mg/dL (0.7-1.3) Estimated GFR (Cockcroft-Gault) 74.2 BUN/Creatinine Ratio 10 (6-20) Glucose Level 105 mg/dL (70-99) H Calcium Level 9.0 mg/dL (8.5-10.1) Magnesium Level 2.1 mg/dL (1.8-2.4) Total Bilirubin 0.6 mg/dL (0.2-1.0) Aspartate Amino Transferase (AST) 18 U/L (15-37) Alanine Aminotransferase (ALT) 27 U/L (16-63) Alkaline Phosphatase 89 U/L (46-116) Troponin I Quantitative < 0.017 ng/mL (0.000-0.055) ZE-Zvt-L-Type Natriuretic Peptide 131 pg/mL (0-124) H Total Protein 8.0 g/dL (6.4-8.2) Albumin 3.8 g/dL (3.4-5.0) Albumin/Globulin Ratio 0.9 (1.0-1.7) L Laboratory Tests 02/01/21 07:47 Laboratory Tests 02/01/21 07:47 ECHOCARDIOGRAM ECHOCARDIOGRAM <Conclusion> The left ventricular systolic function is normal and the ejection fraction is within normal range. Estimated ejection fraction 60-65%. There is normal LV segmental wall motion. Doppler and Color Flow revealed mild tricuspid regurgitation. Estimated PAP 38 mmHg. Limited study only DATE: 11/07/20 [id number] 0 ASSESSMENT/PLAN ASSESSMENT/PLAN 1. Arrhythmia: ranging from SB with first degree AV block lowest upper 30s no pauses and NSVT and frequent PVCs 2. HTN: Recent EF and WM nml 3. Remote hx of PAFIB: treated with ablation 4. CP/Palpitations: no CAD with prior LHC 5. Fatigue Recommendations 1. QTc and lytes are nml. Hold flecainide and BB for now. Will discussed with EP for further treatment adjustment 2. Monitor overnight and will plan for outpt ILR 3. Continue HCTZ/lisinopril. Hydralazine IV PRN PETRA SYKES APRN February 01, 2021 12:00
[2021-02-01] MEDS: OMEGA-3 FATTY ACIDS/FISH OIL 1,000 MG CAPSULE. PO SCH ×2 (12:30→20:40)
[2021-02-01] MEDS: FERROUS SULFATE 325 MG TABLET. PO SCH (12:30)
[2021-02-01] MEDS: ASPIRIN ENTERIC COATED 81 MG TABLET.DR. PO SCH (12:30)
[2021-02-01] MEDS: LISINOPRIL 20 MG TABLET PO SCH ×2 (12:30→20:42)
[2021-02-01] MEDS: MULTIVITAMIN with MINERAL TABLET. PO SCH (12:30)
[2021-02-01] MEDS: ASCORBIC ACID 500 MG TABLET PO SCH (12:30)
[2021-02-01] MEDS ORDERED: clonazePAM 0.5 MG TABLET PO SCH (12:30)
[2021-02-01 16:43] VITALS: BP 150/82
[2021-02-01] MEDS ORDERED: BUDESONIDE 0.5 MG/2 ML NEBU. NEB SCH ×2 (18:45→20:00)
[2021-02-01 19:00] VITALS: BP 150/82
[2021-02-01] MEDS: clonazePAM 0.5 MG TABLET PO SCH ×2 (19:08→20:43)
[2021-02-01] MEDS ORDERED: CLONAZEPAM1 MG PO (19:30)
[2021-02-01] MEDS ORDERED: HYDR-2867 PO (19:46)
[2021-02-01 22:54] VITALS: BP 130/75
[2021-02-02 02:43] VITALS: BP 146/87
[2021-02-02 07:00] VITALS: BP 129/84
[2021-02-02] MEDS: OMEGA-3 FATTY ACIDS/FISH OIL 1,000 MG CAPSULE. PO SCH ×2 (09:00→21:00)
[2021-02-02] MEDS: clonazePAM 0.5 MG TABLET PO SCH ×3 (10:08→21:14)
[2021-02-02] MEDS: MULTIVITAMIN with MINERAL TABLET. PO SCH (10:09)
[2021-02-02] MEDS: FERROUS SULFATE 325 MG TABLET. PO SCH (10:11)
[2021-02-02] MEDS: LISINOPRIL 20 MG TABLET PO SCH ×2 (10:13→21:14)
[2021-02-02] MEDS: ASCORBIC ACID 500 MG TABLET PO SCH (10:13)
[2021-02-02] MEDS: FLUTICASONE/VILANTEROL 100/25 INHALER. INH SCH (10:16)
[2021-02-02] MEDS: ALBUTEROL SULFATE 8GM INHALER. INH PRN (10:16)
[2021-02-02] MEDS: ASPIRIN ENTERIC COATED 81 MG TABLET.DR. PO SCH (10:23)
[2021-02-02 11:00] VITALS: BP 142/82
--- NOTE | 2021-02-02 12:38 | PDOC ---
[facility] PROGRESS NOTE Date of Service DOS: DATE: 02/02/21 TIME: 12:36 Chief Complaint Chief Complaint ASSESSMENT/PLAN Symptomatic bradycardia arrhythmia with multiple PVCs and previously had PACs status post ablation and loop recorder History of hypertension History of paroxysmal atrial fibrillation status post ablation by Dr. Stallings Recent clean heart catheterization Continue telemetry monitoring Appreciate cardiology recommendation- Hold flecainide and BB for now. Will discussed with EP for further treatment adjustment Continue HCTZ/lisinopril. Hydralazine IV PRN Ambulation for DVT prophylaxis ADA diet Full code Discussed with RN and SW Disposition pending EP recommendations Surrogate decision maker is History of Present Illness History of Present Illness 60-year-old male who appears younger than his stated age. 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 Apparently 7 years ago, he did have AFib and underwent an ablation at that time. Three months ago, he was back in our emergency room complaining of PVCs. They did a cardiac catheterization at that time, which was apparently negative. Over the past few days, he has been dizzy, has been a little short of breath. He is having PVCs. When he got to the ER, his rate is in the 30-50 range. He is on flecainide and metoprolol. I discussed the case with ER physician. We are going to admit the patient. I suspect we will be holding his antiarrhythmics and beta blockade and consult Cardiology, Dr. Farris is going to come down to see him as well. Vitals/I&O Vitals/I&O: Vital Signs Date Time Temp Pulse Resp B/P (MAP) Pulse Ox O2 Delivery O2 Flow Rate FiO2 02/02/21 11:00 97.9 54 16 142/82 (102) 98 Room Air 97.9 I & O 02/01/21 02/01/21 02/02/21 15:00 23:00 07:00 Intake Total 300 ml 150 ml Balance 300 ml 150 ml Physical Exam General: Alert, Oriented X3, Cooperative, No acute distress Heart: Regular rate (SR/SB), Normal S1, Normal S2, No murmurs Lungs: Clear Abdomen: Soft, No tenderness Extremities: No cyanosis, No edema Skin: No breakdown, No significant lesion Labs Labs: Laboratory Tests Test 02/01/21 13:38 Troponin I Quantitative < 0.017 ng/mL (0.000-0.055) Assessment and Plan Assessmemt and Plan Problems Medical Problems: (1) NSVT (nonsustained ventricular tachycardia) Status: Acute Comment Review of Relevant I have reviewed the following items constance (where applicable) has been applied. Medications: Current Medications Medications (Trade) Dose Ordered Sig/Svetlana Route PRN Reason Start Time Stop Time Status Last Admin Dose Admin Clonazepam (KlonoPIN) 1 mg TID PO 02/01/21 18:00 02/02/21 10:08 Fluticasone/ Vilanterol (Breo Ellipta 100-25 Mcg) 1 puff DAILY INH 02/02/21 09:00 02/02/21 10:16 Albuterol Sulfate (Ventolin Hfa) 1 puff PRN Q4HRS PRN INH SHORTNESS OF BREATH 02/01/21 19:15 02/02/21 10:16 Justifications for Admission Other Justification ALLISON COY MD February 02, 2021 12:38
--- NOTE | 2021-02-02 13:42 | NUR ---
SS following for discharge planning. SS reviewed pt chart and discussed with pt RN. Pt is from home and is currently on room air. Cardiology following. SS will continue to follow for discharge planning.
[2021-02-02 15:00] VITALS: BP 125/82
--- NOTE | 2021-02-02 16:05 | PDOC ---
PETRA SYKES ASSISTANT DIRECTOR OF PUBLIC WORKS 02/02/21 1605: CARDIO Progress Notes Date and Time Date of Service 02/02/2021 Time of Evaluation 1215 Subjective Subjective: No Chest Pain, No shortness of breath, No Palpitations, Other (still feel tired) Vitals Vitals Vital Signs Date Time Temp Pulse Resp B/P (MAP) Pulse Ox O2 Delivery O2 Flow Rate FiO2 02/02/21 15:00 97.8 50 16 125/82 (96) 99 Room Air 97.8 Weight Weight [ ] Input and Output Intake and Output Intake and Output 02/02/21 07:00 Intake Total 450 ml Balance 450 ml Intake Oral 450 ml Physical Exam HEENT: Neck Supple W Full Motion Chest: Symmetric LUNGS: Clear to Auscultation Heart: S1S2, RRR (SR/SB with PVCs) Abdomen: Soft N/T Extremities: No Calf Tenderness Neurology: alert, oriented, follow commands Assessment Assessment 1. Arrhythmia: ranging from SB with first degree AV block lowest upper 30s no pauses/blocks and NSVT and frequent PVCs 2. HTN: Recent EF and WM nml 3. Remote hx of PAFIB: treated with ablation 4. CP/Palpitations: no CAD with prior LHC 5. Fatigue Recommendations 1. Hold flecainide and BB for now. Awaiting EP input for further treatment adjustment 2. Will plan for outpt ILR 3. Continue HCTZ/lisinopril. Hydralazine IV PRN Justicifation of Admission Dx: Justifications for Admission: Justification of Admission Dx: Yes DC: Acute STEMI MARIAM RIDLEY MD 02/02/21 1701: CARDIO Progress Notes Plan Plan Pt. seen and examined. Agree with above SOAP MIXER note. We will plan for initiation of Mexelitene, refer to our EP services due to insurance issues. Supportive care. I think there is a component of some anxiety as well. PETRA SYKES APRN February 02, 2021 16:05 MARIAM RIDLEY MD February 02, 2021 17:01
[2021-02-02] MEDS: MEXILETINE HCL 200 MG CAPSULE PO SCH ×2 (18:10→22:51)
[2021-02-02 19:45] VITALS: BP 122/71
[2021-02-02 23:01] VITALS: BP 107/64
[2021-02-03 03:35] VITALS: BP 126/78
[2021-02-03] MEDS: MEXILETINE HCL 200 MG CAPSULE PO SCH (06:04)
[2021-02-03 07:00] VITALS: BP 135/80
[2021-02-03] MEDS: OMEGA-3 FATTY ACIDS/FISH OIL 1,000 MG CAPSULE. PO SCH (09:00)
--- NOTE | 2021-02-03 09:11 | PDOC ---
CARDIOLOGY PROGRESS NOTE SUBJECTIVE: No new events. OBJECTIVE: Vital Signs/I&O: Vital Signs Date Time Temp Pulse Resp B/P (MAP) Pulse Ox O2 Delivery O2 Flow Rate FiO2 02/03/21 07:00 97.5 53 14 135/80 (98) 98 Room Air 97.5 I & O 02/02/21 02/02/21 02/03/21 15:00 23:00 07:00 Intake Total 800 ml Balance 800 ml Objective: GEN.: No apparent distress. Alert and oriented. HEENT: Head is normocephalic, atraumatic NECK: Supple. LUNGS: Clear to auscultation. HEART: RRR, S1, S2 present. Peripheral pulses intact ABDOMEN: Soft, nontender. Positive bowel sounds. EXTREMITIES: Without any cyanosis. NEUROLOGIC: Normal speech, normal tone PSYCHIATRIC: Normal affect, normal mood. SKIN: No ulcerations CURRENT MEDICATIONS: Current Medications Medications (Trade) Dose Ordered Sig/Svetlana Route PRN Reason Start Time Stop Time Status Last Admin Dose Admin Mexiletine HCl (Mexitil) 200 mg Q8HRS PO 02/02/21 17:15 02/03/21 06:04 ASSESSMENT: 1. PVCs 2. Anxiety PLAN: 1. Discussed with Dr. Manning. Patient will now f/u with him now. 2. Mexelitene 200mg p.o bid 3. Repeat EKG in office in 3 days. 4. Repeat EKG after 5pm dose tonight, if doing well, will DC home tonight. Thanks. Justicifation of Admission Dx: Justifications for Admission: Justification of Admission Dx: Yes IL: Acute STEMI MARIAM RIDLEY MD February 03, 2021 09:11
--- NOTE | 2021-02-03 09:34 | EKG ---
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
[2021-02-03] MEDS: FERROUS SULFATE 325 MG TABLET. PO SCH (09:35)
[2021-02-03] MEDS: ASPIRIN ENTERIC COATED 81 MG TABLET.DR. PO SCH (09:35)
[2021-02-03] MEDS: MULTIVITAMIN with MINERAL TABLET. PO SCH (09:36)
[2021-02-03] MEDS: LISINOPRIL 20 MG TABLET PO SCH (09:37)
[2021-02-03] MEDS: clonazePAM 0.5 MG TABLET PO SCH ×2 (09:38→14:36)
[2021-02-03] MEDS: FLUTICASONE/VILANTEROL 100/25 INHALER. INH SCH (09:39)
[2021-02-03] MEDS: ASCORBIC ACID 500 MG TABLET PO SCH (09:39)
[2021-02-03] MEDS: ALBUTEROL SULFATE 8GM INHALER. INH PRN (09:40)
[2021-02-03 11:00] VITALS: BP 128/80
[2021-02-03] MEDS ORDERED: MEXI200C PO (11:51)
--- NOTE | 2021-02-03 11:53 | DISCH ---
DISCHARGE INSTRUCTIONS Condition on Discharge Condition on Discharge: Stable Activity After Discharge Activity Instructions for Disc: Activity as tolerated Lifting Instructions after Dis: Do not lift >10 pounds Driving Instructions after Dis: Do not drive today Diet after Discharge Diet after Discharge: Cardiac Diet Texture: Regular Liquid Texture: Thin Liquid Wound Incision Care Wound/Incision Care: No wound care needed Checks after Discharge Checks after discharge: Check blood press - daily, Check your Temp as needed Contacting the DRSpeedy after DC Call your doctor for: If your condition worsens Follow-Up Follow up with: PCP within 2 weeks of discharge Follow Up With: Dr. Manning for EP evaluation and EKG in 3 days Treatment/Equipment after DC Adaptive Equipment Issued: None ALLISON COY MD February 03, 2021 11:53
[2021-02-03 15:35] VITALS: BP 111/62
[2021-02-03] MEDS ORDERED: MEXILETINE HCL 200 MG CAPSULE PO SCH ×2 (17:30→21:00)
--- NOTE | 2021-02-03 18:44 | EKG ---
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
[2021-02-03 19:30] VITALS: BP 121/66
--- NOTE | 2021-02-03 19:53 | NUR ---
Spoke with the pt in depth in regards to medications/diagnosis and concerns regarding heart rhythm and blood pressure parameters. Handouts given to the pt and let the pt know to call with questions. Spoke with Dr Farris after second EKG that was ordered with the results. Dr. Farris gave order to discharge after reults of ekg given. Patients script called to [facility] [address] as this pharmacy is open 24 hours. Pt left via wheelchair with girlfriend present to transport home.
--- NOTE | 2021-02-06 08:37 | PDOC3 ---
[facility]-Discharge Summary Date of Admission: Date of Admission: February 01, 2021 Date of Discharge: Date of Discharge: February 03, 2021 Discharge Diagnosis: Discharge Diagnosis: Symptomatic bradycardia arrhythmia with multiple PVCs and previously had PACs status post ablation and loop recorder History of hypertension History of paroxysmal atrial fibrillation status post ablation by Dr. Stallings Recent clean heart catheterization Consults: Consults: cardiology RECS 1. Discussed with Dr. Manning. Patient will now f/u with him now. 2. Mexelitene 200mg p.o bid 3. Repeat EKG in office in 3 days. Hospital Course: Hospital Course: 60-year-old male who appears younger than his stated age. 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 Apparently 7 years ago, he did have AFib and underwent an ablation at that time. Three months ago, he was back in our emergency room complaining of PVCs. They did a cardiac catheterization at that time, which was apparently negative. Over the past few days, he has been dizzy, has been a little short of breath. He is having PVCs. When he got to the ER, his rate is in the 30-50 range. He is on flecainide and metoprolol. I discussed the case with ER physician. We are going to admit the patient. I suspect we will be holding his antiarrhythmics and beta blockade and consult Cardiology, Dr. Farris is going to come down to see him as well. Disposition: Disposition/Orders: D/C to Home Activity: Activity: Resume previous activity Diet: Diet: Cardiac Medications: Home Meds Active Scripts Mexiletine Hcl (MEXILETINE HCL) 200 Mg Capsule, 200 MG PO BID for arrhythmias for 30 Days, #60 CAP Prov:ALLISON COY MD 02/03/21 Aspirin (ASPIRIN EC) 81 Mg Tablet.dr 81 MG PO DAILYWBKFT for heart for 30 Days, #30 TAB.SR Prov:ANNIE TAO MD 11/07/20 Reported Medications Clonazepam (CLONAZEPAM) 1 Mg Tablet, 1 MG PO TID for FOR ANXIETY, TAB 02/01/21 Ascorbic Acid (VITAMIN C) 500 Mg Capsule.er, 500 MG PO DAILY for supp, CAP.SR 10/31/20 Ferrous Sulfate (IRON) 325 Mg Tablet, PO DAILY for supp, TAB 10/31/20 Beclomethasone Dipropionate (Qvar Redihaler) 10.6 Gm Hfa.aeroba, 2 PUFF IH BID for asthma for 30 Days, #1 INHALER 0 Refills 10/31/20 Lisinopril (LISINOPRIL) 20 Mg Tablet, 1 TAB PO BID for htn, #30 TAB 5 Refills 10/31/20 Multivitamin (MULTI-DAY VITAMINS) 1 Each Tablet, 1 TAB PO DAILY, #30 TAB 02/01/15 Albuterol Sulfate (VENTOLIN HFA INHALER) 18 Gm Hfa.aer.ad, 2 PUFF IH PRN Q4- 6HRS, #1 INHALER 02/01/15 Discontinued Reported Medications Hydralazine Hcl (HYDRALAZINE HCL) 10 Mg Tablet, 20 MG PO BID for , TAB 02/01/21 Atenolol (TENORMIN) 25 Mg Tablet, 1 TAB PO BID for heart for 30 Days, #60 TAB 0 Refills 10/31/20 Cholecalciferol (Vitamin D3) (Vitamin D3) 1,250 Mcg Capsule, PO DAILY for supp, CAP 10/31/20 Clonazepam (KLONOPIN) 2 Mg Tablet, 3 MG PO DAILY for unk, TAB 10/31/20 Mckittrick-3 Fatty Acids/Fish Oil (FISH OIL 1,200 MG SOFTGEL) 1 Each Capsule, 1 EACH PO BID 02/01/15 Scheduled Albuterol Sulfate (Ventolin Hfa Inhaler), 2 PUFF IH PRN Q4-6HRS, (Reported) Ascorbic Acid (Vitamin C), 500 MG PO DAILY, (Reported) Aspirin (Aspirin Ec), 81 MG PO DAILYWBKFT Beclomethasone Dipropionate (Qvar Redihaler), 2 PUFF IH BID, (Reported) Clonazepam (Clonazepam), 1 MG PO TID, (Reported) Ferrous Sulfate (Iron), Unknown Dose PO DAILY, (Reported) Lisinopril (Lisinopril), 1 TAB PO BID, (Reported) Mexiletine Hcl (Mexiletine Hcl), 200 MG PO BID Multivitamin (Multi-Day Vitamins), 1 TAB PO DAILY, (Reported) Discontinued Medications Atenolol (Tenormin), 1 TAB PO BID, (Reported) Cholecalciferol (Vitamin D3) (Vitamin D3), Unknown Dose PO DAILY, (Reported) Clonazepam (Klonopin), 3 MG PO DAILY, (Reported) Discontinued Reason: UPDATED Hydralazine Hcl (Hydralazine Hcl), 20 MG PO BID, (Reported) Mckittrick-3 Fatty Acids/Fish Oil (Fish Oil 1,200 Mg Softgel), 1 EACH PO BID, (Repo rted) Total Time: Total Time: Total time spent was 34 minutes in preparing scripts, discharge planning with SW and RN, and preparing this discharge summary. Patient seen and examined on day of discharge. Justicifation of Admission Dx: Justifications for Admission: Justification of Admission Dx: Yes AK: Acute STEMI ALLISON COY MD February 06, 2021 08:36
== END 2021-02-03 20:00 | disposition home or self-care (01) ==
LOC: ER 07:33 → ED HOLD 11:07 → 2 SOUTH 17:03
PROVIDERS: ADMIT Internal Medicine; ATTEND Internal Medicine
DX: I49.9 Cardiac arrhythmia, unspecified (principal); I47.2 Ventricular tachycardia; I48.0 Paroxysmal atrial fibrillation; I10 Essential (primary) hypertension; I44.0 Atrioventricular block, first degree; I25.2 Old myocardial infarction; F41.9 Anxiety disorder, unspecified; J45.909 Unspecified asthma, uncomplicated; M19.90 Unspecified osteoarthritis, unspecified site; R53.83 Other fatigue; Z79.82 Long term (current) use of aspirin
CPT/HCPCS: 36415; 71045; 80053; 83735; 83880; 84484; 85025; 93005; 99285; G0378; G0379

== ENCOUNTER → 2021-03-05 | Outpatient (CLI) | payer OTHER ==
[2021-02-03 19:30] VITALS: BP 121/66
[~2021-03-05] MED LIST changes: +CLONAZEPAM1 MG PO; +MEXI200C PO
--- NOTE | 2021-03-05 10:05 | RAD ---
PQRS Compliance Statement: One or more of the following individualized dose reduction techniques were utilized for this examinat ion: 1. Automated exposure control 2. Adjustment of the mA and/or kV according to patient size 3. Use of iterative reconstruction technique CT THORAX WO Clinical Indication: Reason: LUNG NODULES / Spl. Instructions: / History: Comparison: CT chest with contrast August 18, 2020. TECHNIQUE: Helical CT imaging of the chest is performed without IV contrast. Findings: The thyroid is symmetric. Limited evaluation of the bhaivn without IV contrast. There is no adenopathy in the chest. The great vessels are upper limits of normal in caliber. The cardiac size is normal, no pericardial effusion. No pleural abnormality is seen. The central airways are patent. 6 mm noncalcified nodule in the right upper lobe is unchanged, image 108 of series 3. No other pulmonary nodule is identified. The visualized upper abdomen is unremarkable. The thoracic spine alignment is maintained. There is presumably reactive endplate sclerosis in the lo wer thoracic spine. IMPRESSION: A 6 mm noncalcified nodule in the right upper lobe is unchanged. Recommend continued surveillance. Electronically signed by: Edmund Resendiz MD (03/05/2021 10:02 AM) [facility]
== END ==
LOC: CT 08:47
PROVIDERS: ATTEND Internal Medicine Pulmonary Disease
DX: R91.1 Solitary pulmonary nodule (principal)
CPT/HCPCS: 71250

== ENCOUNTER → 2021-07-25 | Outpatient (CLI) | payer OTHER ==
[~2021-07-25] MED LIST changes: +IOHEXOL 180 MG/ML 10 ML VIAL. ONE; +OLME40TA12 PO; +methylPREDNISolone ACETATE 40 MG/ML VIAL. ONE; +methylPREDNISolone ACETATE 80 MG/ML VIAL. ONE
--- NOTE | 2021-07-25 11:18 | PDOC ---
Progress Note - Pain Clinic Date of Service: DOS: DATE: 07/25/21 TIME: 11:14 Diagnosis: Dx: Cervical radiculopathy with cervical degenerative disease and cervical spinal stenosis History or Present Illness: HPI: 61-year-old male returns for follow-up status post cervical epidural steroid injection last seen January 26, 2021. Patient did very well with marijuana percent improvement in his pain in his neck and left upper extremity. Patient reports pain began to return as now has some new pain in the right upper mid flank which was not present previously and has been there for about a month without any specific injury or accident that he is aware of but has been getting much more worse in quality patient reports it is 5 on a scale of 10 is worse over the past week 5 on average 3 its least is a 5 today patient scribes as aching and dull in the right flank. Patient reports still pain in the left arm which was 100% improved after the last injection. Patient reports pain is beginning to tenderness in the right chest as well as the right flank which is new for him. Patient also stretching strengthening of the right flank but is not significantly improved over the past month or so. Patient reports no bowel or bladder incontinence. Physical Exam: VS: Blood pressure is 157/98 pulse 61 respirations are 16 temperature 90.1 F height is 6 feet 4 inches weight is 247 pounds PE: PHYSICAL EXAMINATION: GENERAL: The patient is awake, alert, oriented, appropriate, very pleasant in demeanor. HEENT: Shows normocephalic, atraumatic. Extraocular movements are intact and symmetrical. Oral cavity: Mucous membranes moist and pink. Dentition is intact. NECK: Shows anterior throat supple without palpable lymphadenopathy noted. Swallow reflex symmetrical. CHEST: Shows normal on inspection. Breath sounds are clear bilaterally, no rales or rhonchi. HEART: Shows S1, S2 clear. No murmurs auscultated. ABDOMEN: Soft, nontender, nondistended, obese. No palpable organomegaly is noted. BACK: Shows spine grossly in the midline. Normal-appearing cervical lordotic curvature. Cervical paraspinous muscles show symmetrical inspection, on palpation some mild tenderness diffusely in the inferior aspect of the cervical paraspinous muscle on the left side only without atrophy hypertrophy or trigger points. Patient has full rotation of motion cervical spine both laterally as well as full extension full forward flexion without significant difficulty or pain reported. There is slightly increased thoracic kyphosis, some minor flattening of the lumbar lordotic curvature. Patient's right flank shows some moderate tenderness with palpation just inferior to the rib margin in the mid axillary line as well as slightly posterior to this without any obvious abnormalities or trigger points in the musculature palpated. EXTREMITIES: Upper extremities show deep tendon reflexes 2+ in the biceps and tr iceps tendons. 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 Peripheral pulses are 2+ radial. No peripheral edema is noted bilaterally. Upper extremities are warm and dry to touch, equal in color and appearance. SKIN: Shows warm and dry, good turgor. No edema. No sores, rashes or bruising throughout. Procedure: Procedure: Options were discussed with patient. Patient chart was reviewed his current medication regimen updated current review of systems updated today as well. We will proceed with a cervical epidural steroid injection today with fluoroscopic guidance. Risks were discussed including but not limited to: Bleeding, infection, possibility of epidural hematoma and subsequent neurological compromise, dural puncture, headaches, spinal cord and/or nerve damage, side effects of steroid medication, and poor results regarding pain control. Patient understands and wished to proceed. Patient will return to clinic in ap proximately 2 weeks for follow-up, was counseled as return appointment, activity level, and side effects beware of. Medication Injected: Med Injected: Procedure cervical epidural steroid injection at the C6-7 level, using local anesthetic under sterile prep and drape using C-arm fluoroscopic guidance under local anesthesia medications injected ;120 mg Depo-Medrol +5 mL normal saline and 2 mL contrast; condition at discharge is stable patient tolerated procedure well. and had no complications Condition at Discharge: Condition at Discharge: Condition at discharge stable, patient tolerated procedure well and had no complications. ELBA LYONS MD Jul 25, 2021 11:18
--- NOTE | 2021-07-25 11:19 | PDOC4 ---
Procedure Note: ICD 10 Code: ICD 10 Code: M54.12 M 48.02 M50.30 Procedure Note: Patient was consented for cervical epidural steroid injection with fluoroscopic guidance. Risks were discussed including but not limited to: Bleeding, infection, possibility of epidural hematoma and subsequent neurological compromise, dural puncture, headaches, spinal cord and/or nerve damage, side effects of steroid medication, and poor results regarding pain control. Patient understands and wished to proceed. Procedure cervical epidural steroid injection at the C6-7 level, using local anesthetic under sterile prep and drape using C-arm fluoroscopic guidance under local anesthesia medications injected ;120 mg Depo-Medrol +5 mL normal saline and 2 mL contrast; condition at discharge is stable patient tolerated procedure well. and had no complications ELBA LYONS MD Jul 25, 2021 11:19
== END | disposition home or self-care (01) ==
LOC: PNCL 10:15
PROVIDERS: ATTEND Anesthesiology
DX: M50.10 Cervical disc disorder with radiculopathy, unspecified cervical region (principal); M48.02 Spinal stenosis, cervical region; G89.29 Other chronic pain; I10 Essential (primary) hypertension; I48.91 Unspecified atrial fibrillation; J45.909 Unspecified asthma, uncomplicated; M19.90 Unspecified osteoarthritis, unspecified site; G47.30 Sleep apnea, unspecified; Z98.890 Other specified postprocedural states; Z79.899 Other long term (current) drug therapy; Z79.01 Long term (current) use of anticoagulants
CPT/HCPCS: 62321; J1030; J1040; Q9965

== ENCOUNTER → 2021-08-28 | Outpatient (CLI) | payer OTHER ==
--- NOTE | 2021-08-28 11:22 | PDOC ---
Progress Note - Pain Clinic Date of Service: DOS: DATE: 08/28/21 TIME: 11:19 Diagnosis: Dx: Cervical radiculopathy with cervical degenerative disease and cervical spinal stenosis History or Present Illness: HPI: 61-year-old male returns for follow-up status post cervical epidural steroid 1. Patient reports 50% improvement after the first injection but the pain returning fairly significantly in the base the neck and shoulders more on the left upper extremity than the right at this time notes his left arm gets more fatigued much more easily initially doing much better with distance walking doing household activities work activities try with greater ease driving the car with his left arm now reports repetitive motions again is beginning to become more noticeable with pain in the left upper extremity as well as on the right anterior chest patient reports is a form scale 10 is worst in the past week for an average to its least is a 4 today patient was aching and tight can be radiating constant in the left upper extremity as well but after last injection not radiating to the hand as much as it had previously. Patient reports no new bowel or bladder incontinence. Physical Exam: VS: Blood pressure is 144/88 pulse 64 respirations 16 temperature is 98.2 F height 6 foot 4 inches weight is 248 pounds. PE: PHYSICAL EXAMINATION: GENERAL: The patient is awake, alert, oriented, appropriate, very pleasant in demeanor HEENT: Shows normocephalic, atraumatic. Extraocular movements are intact and symmetrical. Oral cavity: Mucous membranes moist and pink. Dentition is intact. NECK: Shows anterior throat supple without palpable lymphadenopathy noted. Swallow reflex symmetrical. CHEST: Shows normal on inspection. Breath sounds are clear bilaterally. HEART: Shows S1, S2 clear. No murmurs auscultated. ABDOMEN: Soft, nontender, nondistended. No palpable organomegaly is noted. BACK: Shows spine grossly in the midline. Normal-appearing cervical lordotic curvature. Cervical paraspinous muscles show symmetrical with inspection, on palpation some moderate tenderness diffusely bilaterally diffusely without significant radiation patient is good rotation motion cervical spine both laterally as well as extension flexion without significant limitation. There is slightly increased thoracic kyphosis, some minor flattening of the lumbar lordotic curvature. EXTREMITIES: Upper extremities show deep tendon reflexes 2+ in the biceps and triceps tendons. 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 Peripheral pulses are 2+ radial. No peripheral edema is noted bilaterally. Upper extremities are warm and dry to touch, equal in color and appearance. SKIN: Shows warm and dry, good turgor. No edema. No sores, rashes or bruising throughout. Procedure: Procedure: Options were discussed with patient. Patient's chart was reviewed his current medication regimen updated current review of systems updated today as well. We will proceed with a cervical epidural steroid injection today with fluoroscopic guidance. Risks were discussed including but not limited to: Bleeding, infection, possibility of epidural hematoma and subsequent neurological compromise, dural puncture, headaches, spinal cord and/or nerve damage, side effects of steroid medication, and poor results regarding pain control. Patient understands and wished to proceed. Patient will return to clinic in approximate 2 weeks for follow-up, was counseled return appointment, activity level, and side effect to be aware of. Medication Injected: Med Injected: Procedure cervical epidural steroid injection at the C6-7 level, using local anesthetic under sterile prep and drape using C-arm fluoroscopic guidance under local anesthesia medications injected ;120 mg Depo-Medrol +5 mL normal saline and 2 mL contrast; condition at discharge is stable patient tolerated procedure well. and had no complications Condition at Discharge: Condition at Discharge: Condition at discharge stable, patient tolerated procedure well and had no complications. ELBA LYONS MD Aug 28, 2021 11:22
--- NOTE | 2021-08-28 11:23 | PDOC4 ---
Procedure Note: ICD 10 Code: ICD 10 Code: M54.12 M50.30 M4 8.02 Procedure Note: Patient was consented for cervical epidural steroid injection. Risks were discussed including but not limited to: Bleeding, infection, possibility of epidural hematoma and subsequent neurological compromise, dural puncture, headaches, spinal cord and/or nerve damage, side effects of steroid medication, and poor results regarding pain control. Patient understands and wished to proceed. Procedure cervical epidural steroid injection at the C6-7 level, using local anesthetic under sterile prep and drape using C-arm fluoroscopic guidance under local anesthesia medications injected ;120 mg Depo-Medrol +5 mL normal saline and 2 mL contrast; condition at discharge is stable patient tolerated procedure well. and had no complications ELBA LYONS MD Aug 28, 2021 11:23
== END | disposition home or self-care (01) ==
LOC: PNCL 10:24
PROVIDERS: ATTEND Anesthesiology
DX: M50.10 Cervical disc disorder with radiculopathy, unspecified cervical region (principal); M48.02 Spinal stenosis, cervical region; I48.91 Unspecified atrial fibrillation; I10 Essential (primary) hypertension; G47.30 Sleep apnea, unspecified; M19.90 Unspecified osteoarthritis, unspecified site; J45.909 Unspecified asthma, uncomplicated; Z79.82 Long term (current) use of aspirin; Z79.899 Other long term (current) drug therapy; Z98.890 Other specified postprocedural states; Z88.2 Allergy status to sulfonamides
CPT/HCPCS: 62321; J1030; J1040; Q9965